=== PATIENT | female | born 1960 | race Caucasian/White ===

== ENCOUNTER 2020-05-22 10:26 | Emergency (ER) | payer BC, OTHER, SELFPAY ==
--- NOTE | ~2020-05-22 | XR_ITS ---
EXAMINATION: XR hip LT min 2V EXAM DATE: 05/22/2020 11:18 INDICATION: No known recent injury provided at this time. Pain of the left hip. TECHNIQUE: Left hip frontal, crosstable lateral and 'frog-leg' projections for interpretation. Compar wilder is made to prior examination from 01/03/2011. FINDINGS: Smooth left hip femoral head contour, no radiographic evidence of avascular necrosis. Ther e is mild to moderate primary osteoarthritis. There are no acute fractures or dislocations identified . There is no subcutaneous gas. The soft tissue is unremarkable. There are no radiopaque foreign bodies. IMPRESSION: Mild to moderate left hip osteoarthritis. Reviewed, dictated and finalized at location B.
[2020-05-22 10:30] VITALS: BP 170/83; PULSE 80; RESP 19; TEMP 37; O2SAT 98
--- NOTE | 2020-05-22 10:59 | ED.LOWEXIN ---
HPI - Extremity Injury (Lower) General Chief Complaint: Extremity Injury, Lower <Cordelia Hernadez PA-C - Last Filed: 05/22/20 13:20> Stated Complaint: Pain in groin/L hip <Cordelia Hernadez PA-C - Last Filed: 05/22/20 13:20> Time Seen by Provider: 05/22/20 10:37 <Cordelia Hernadez PA-C - Last Filed: 05/22/20 13:20> Source: patient <Cordelia Hernadez PA-C - Last Filed: 05/22/20 13:20> Mode of arrival: ambulatory <JUAN Gonzalez Last Filed: 05/22/20 13:20> Limitations: no limitations <Cordelia Hernadez PA-C - Last Filed: 05/22/20 13:20> History of Present Illness HPI Narrative: This is a 59 year old female that presents to the ER for left hip pain since yesterday. No known injury or trauma. Reports the pain worsened this morning and was making it difficult for her to ambulate which prompted her to be seen. Reports pain seems to be anterior and in the groin. Worse with movement and relieved with rest. She took 500 mg of Tylenol this morning. Denies fever, rash, abdominal pain, vomiting, dysuria, back pain, weakness or numbness. <Cordelia Hernadez PA-C - Last Filed: 05/22/20 13:20> Related Data Home Medications: Home Medications Medication Instructions Recorded Confirmed Zithromax Z-Murali 250 mg PO DAILY 10/04/19 10/04/19 adalimumab 40 mg SUBCUT [id number] 10/04/19 10/04/19 ascorbic acid (vitamin C) [Vitamin 1 g PO DAILY 10/04/19 10/04/19 C] aspirin [Enteric Coated Aspirin] 81 mg PO DAILY 10/04/19 10/04/19 atorvastatin 20 mg PO DAILY 10/04/19 10/04/19 biotin 5,000 mcg PO DAILY 10/04/19 10/04/19 escitalopram oxalate 10 mg PO DAILY 10/04/19 10/04/19 ferrous sulfate 325 mg PO DAILY 10/04/19 10/04/19 folic acid 1 mg PO DAILY 10/04/19 10/04/19 fosinopril 40 mg PO DAILY 10/04/19 10/04/19 furosemide 20 mg PO DAILY 10/04/19 10/04/19 guaifenesin [Mucinex] 600 mg PO BID 10/04/19 10/04/19 losartan 100 mg PO DAILY 10/04/19 10/04/19 metformin 500 mg PO BID 10/04/19 10/04/19 methotrexate sodium 15 mg PO WEEKLY 10/04/19 10/04/19 multivitamin 1 tablet PO DAILY 10/04/19 10/04/19 nebivolol [Bystolic] 10 mg PO TID 10/04/19 10/04/19 omega-3 fatty acids 500 mg PO DAILY 10/04/19 10/04/19 omeprazole 40 mg PO DAILY 10/04/19 10/04/19 <Cordelia Hernadez PA-C - Last Filed: 05/22/20 13:20> Allergies/Adverse Reactions: Allergies Allergy/AdvReac Type Severity Reaction Status Date / Time adhesive Allergy Intermediate SKIN Verified 05/22/20 10:33 BREAKS OUT <Cordelia Hernadez PA-C - Last Filed: 05/22/20 13:20> Review of Systems Review of Systems: Narrative: CONSTITUTIONAL: Denies fever GASTROINTESTINAL: Denies abdominal pain, nausea, vomiting GENITOURINARY: Denies dysuria or hematuria. SKIN: Denies rash MUSCULOSKELETAL: Reports joint pain and myalgia. Denies back pain NEUROLOGIC: Denies numbness, or weakness. <Cordelia Hernadez PA-C - Last Filed: 05/22/20 13:20> All systems reviewed & are unremarkable except as noted in HPI and below <Cordelia Hernadez PA-C - Last Filed: 05/22/20 13:20> [facility] Social History Social History: Social History Smoking status: Former smoker Alcohol intake: never Gender identity (if verbalized by the patient): Female <Cordelia Hernadez PA-C - Last Filed: 05/22/20 13:20> Exam Narrative: Exam Narrative: GENERAL: Well-appearing, obese, and in no acute distress. HEAD: Normocephalic, atraumatic. EYES: EOMI. CHEST: Clear to auscultation. No respiratory distress. No wheezes rales or rhonchi HEART: Regular rate and rhythm. No murmur heard. Normal peripheral pulses. ABDOMEN: Soft, nontender, nondistended, normal active bowel sounds. BACK: No midline spinal tenderness EXTREMITIES: Normal range of motion. No edema. Strength equal in bilateral lower extremities (5/5). Normal DP pulses SKIN: Warm, dry, no rash. NEURO: No focal deficits. Alert and oriented x3. PSYCH: Normal mood and affect <Cordelia Hernadez,
[2020-05-22] MEDS: ACETAMINOPHEN 500 MG TABLET (11:21)
[2020-05-22 12:17] LABS: Basophils Percent Auto 0.2 % (0.2-1.2); Eosinophils Absolute Auto 0.2 K/mm3 (0-0.3); Eosinophils Percent Auto 2.2 % (0-4.4); Hematocrit 38.1 % (37.0-47.0); Hemoglobin 12.6 g/dL (12.0-15.0); Immature Granulocyte Absolute 0.06 K/mm3 (0.00-0.031); Immature Granulocyte Percent A 0.7 % (0-0.5); Lymphocytes Absolute Auto 1.93 K/mm3 (0.9-3.2); Mean Corpuscular HGB Conc 33.1 g/dl (32-36); Mean Corpuscular Hemoglobin 31.9 pg (26-34); Mean Corpuscular Volume 96.5 fl (80-100); Mean Platelet Volume 9.4 fl (7.4-10.4); Monocytes Absolute Auto 0.7 K/mm3 (0.1-0.6); Monocytes Percent Auto 7.5 % (2.6-8.5); Neutrophils Absolute Auto 5.9 K/mm3 (1.3-6.7); Neutrophils Percent Auto 67.4 % (45.5-73.1); Platelet Count Result 171 k/mm3 (150-375); Red Blood Count 3.95 M/mm3 (4.2-5.4); Red Cell Distribution Width 13.2 % (11.5-14.5); White Blood Count 8.8 K/mm3 (4.5-10.0)
[2020-05-22 12:20] LABS: Blood Urea Nitrogen 18 mg/dL (7-17); CRP < 0.5 mg/dL (<1.0); Calcium 8.8 mg/dL (8.4-10.2); Carbon Dioxide 29 mmol/L (22-30); Chloride 99 mmol/L (98-107); Estimated CRCL calculation 96 ml/min; Estimated Glomerular Filt Rate > 60; Glucose 122 mg/dL (65-105); Potassium 3.8 mmol/L (3.4-5.0); Sodium 135 mmol/L (137-145)
[2020-05-22 12:48] VITALS: BP 149/56; PULSE 86; RESP 18; O2SAT 99
--- NOTE | 2020-05-22 13:05 | PC.NURSE ---
Cordelia BASURTO informed of ambulation assessment
== END 2020-05-22 13:25 | disposition home or self-care (01) ==
PROVIDERS: Physician Assistant; Emergency Provider Emergency Medicine
DX: M25.552 Pain in left hip (principal); Z87.891 Personal history of nicotine dependence; Z79.84 Long term (current) use of oral hypoglycemic drugs; Z86.73 Personal history of transient ischemic attack (TIA), and cerebral infarction without residual deficits; E11.9 Type 2 diabetes mellitus without complications; K21.9 Gastro-esophageal reflux disease without esophagitis; E78.5 Hyperlipidemia, unspecified; I10 Essential (primary) hypertension; M06.9 Rheumatoid arthritis, unspecified; G47.30 Sleep apnea, unspecified; Z96.651 Presence of right artificial knee joint; Z98.84 Bariatric surgery status; F32.9 Major depressive disorder, single episode, unspecified
CPT/HCPCS: 36415; 73502; 80048; 85025; 86140; 96372; 99283; A9270; J3360

== ENCOUNTER 2020-08-22 02:17 | Emergency (ER) | payer BC, OTHER, SELFPAY ==
[2020-08-22 02:19] VITALS: BP 179/55; PULSE 76; RESP 16; TEMP 37; O2SAT 98
--- NOTE | 2020-08-22 02:59 | ED.GENADULT ---
HPI - General Adult General Chief complaint: Dental/Oral Stated complaint: tooth ache Time Seen by Provider: 08/22/20 02:59 Source: patient Mode of arrival: ambulatory Limitations: no limitations History of Present Illness HPI narrative: Patient is a 59-year-old female who presents for evaluation of right lower toothache. Patient states symptoms have been worsening over the past 48 hours, patient has associated jaw pain and radiation of the pain into her ear. She denies difficulty swallowing. She denies fever or chills. She denies associated chest pain, shortness of breath, rhinorrhea or congestion. Patient has follow-up with a dentist on September 01 but has been unable to secure an earlier appointment. She is able only to take a limited amount of ibuprofen due to chronic kidney disease and states that the pain is severe and preventing her from sleeping which is what prompted her visit this evening. Related Data Home Medications Medication Instructions Recorded Confirmed Zithromax Z-Murali 250 mg PO DAILY 10/04/19 10/04/19 adalimumab 40 mg SUBCUT [id number] 10/04/19 10/04/19 ascorbic acid (vitamin C) [Vitamin 1 g PO DAILY 10/04/19 10/04/19 C] aspirin [Enteric Coated Aspirin] 81 mg PO DAILY 10/04/19 10/04/19 atorvastatin 20 mg PO DAILY 10/04/19 10/04/19 biotin 5,000 mcg PO DAILY 10/04/19 10/04/19 escitalopram oxalate 10 mg PO DAILY 10/04/19 10/04/19 ferrous sulfate 325 mg PO DAILY 10/04/19 10/04/19 folic acid 1 mg PO DAILY 10/04/19 10/04/19 fosinopril 40 mg PO DAILY 10/04/19 10/04/19 furosemide 20 mg PO DAILY 10/04/19 10/04/19 guaifenesin [Mucinex] 600 mg PO BID 10/04/19 10/04/19 losartan 100 mg PO DAILY 10/04/19 10/04/19 metformin 500 mg PO BID 10/04/19 10/04/19 methotrexate sodium 15 mg PO WEEKLY 10/04/19 10/04/19 multivitamin 1 tablet PO DAILY 10/04/19 10/04/19 nebivolol [Bystolic] 10 mg PO TID 10/04/19 10/04/19 omega-3 fatty acids 500 mg PO DAILY 10/04/19 10/04/19 omeprazole 40 mg PO DAILY 10/04/19 10/04/19 Allergies Allergy/AdvReac Type Severity Reaction Status Date / Time adhesive Allergy Intermediate SKIN Verified 05/22/20 10:33 BREAKS OUT Review of Systems Review of Systems: Narrative: CONSTITUTIONAL: Denies fever HEENT: Reports right lower tooth ache CARDIOVASCULAR: Denies chest pain RESPIRATORY: Denies cough or dyspnea. GASTROINTESTINAL: Denies abdominal pain SKIN: Denies rash MUSCULOSKELETAL: Denies back pain NEUROLOGIC: Denies headache PMFSH Past Medical History Medical History CVA (cerebral vascular accident) Depression Diabetes mellitus Foot fracture, right GERD (gastroesophageal reflux disease) HLD (hyperlipidemia) HTN (hypertension) Rheumatoid arthritis Sciatica Shoulder fracture, left Sleep apnea with use of continuous positive airway pressure (CPAP) TIA (transient ischemic attack) Surgical History Surgical History H/O cardiac catheterization H/O oophorectomy Lt History of carpal tunnel surgery History of ear surgery Rt x2 History of gastric bypass History of knee replacement Rt Social History Social History Smoking status: Former smoker Alcohol intake: never Gender identity (if verbalized by the patient): Female Exam Narrative: Exam Narrative: GENERAL: Awake, alert, conversant HEAD: Normocephalic, atraumatic. No facial edema or erythema. EYES: PERRLA and EOMI. ENT: Nares clear, no rhinorrhea or epistaxis. Mucous membranes moist. Uvula is midline. No trismus. Dental caries throughout mouth. Gingival erythema, edema about tooth 27 and 28. No abscess identified. No elevation of the palate. NECK: Supple. CHEST: No respiratory distress, breathing even and non labored HEART: Regular rate, sinus rhythm ABDOMEN:Non distended, non tender EXTREMITIES: Normal range of motion. No edema. SKIN: Warm, dry, no rash.
[2020-08-22] MEDS: CLINDAMYCIN HCL 150 MG CAP 300 MG PO (03:28)
[2020-08-22] MEDS: oxyCODONE/ACETAMINOPHEN (*CRX) 5-325 MG TABLET 1 TABLET PO (03:29)
[2020-08-22 03:33] VITALS: PULSE 89; RESP 18; O2SAT 99
== END 2020-08-22 03:36 | disposition home or self-care (01) ==
PROVIDERS: Emergency Provider Emergency Medicine
DX: K02.9 Dental caries, unspecified (principal); Z79.82 Long term (current) use of aspirin; Z79.84 Long term (current) use of oral hypoglycemic drugs; Z86.73 Personal history of transient ischemic attack (TIA), and cerebral infarction without residual deficits; F32.9 Major depressive disorder, single episode, unspecified; E11.9 Type 2 diabetes mellitus without complications; K21.9 Gastro-esophageal reflux disease without esophagitis; E78.5 Hyperlipidemia, unspecified; I10 Essential (primary) hypertension; M06.9 Rheumatoid arthritis, unspecified; G47.30 Sleep apnea, unspecified; Z96.651 Presence of right artificial knee joint; Z98.84 Bariatric surgery status; Z87.891 Personal history of nicotine dependence
CPT/HCPCS: 99283; A9270

== ENCOUNTER 2021-07-12 09:48 | Outpatient (CLI) | payer BC, OTHER, SELFPAY | END 2021-07-12 09:49 | disposition home or self-care (01) | LOC: ANHAUDIO 09:49 | PROVIDERS: Visit Provider Otolaryngology | DX: H93.11 Tinnitus, right ear (principal); H90.71 Mixed conductive and sensorineural hearing loss, unilateral, right ear, with unrestricted hearing on the contralateral side | CPT/HCPCS: 92557; 92567 ==

== ENCOUNTER 2022-08-10 17:38 | Emergency (ER) | payer BC, OTHER, SELFPAY ==
--- NOTE | ~2022-08-10 | XR_ITS ---
EXAM: XR toe 1st RT min 2V DATE: 08/10/2022 18:09 HISTORY: injury, hypertended 1st digit on rt foot, bruising . COMPARISON: None available. FINDINGS: Decreased mineralization. Oblique minimally distracted intra-articular fracture along the proximal and dorsal surface of the distal right first phalanx. No lytic or blastic lesion. Scattered degenerative change. No erosion or periosteal change. Soft tissues within normal limits. IMPRESSION: Oblique, minimally distracted, intra-articular fracture along the proximal dorsal aspect of the distal right first phalanx. Reviewed, dictated and finalized at location K. IMPRESSION: Oblique, minimally distracted, intra-articular fracture along the p roximal dorsal aspect of the distal right first phalanx.
[2022-08-10 17:50] VITALS: BP 142/56; PULSE 63; RESP 18; TEMP 36.4; O2SAT 100
--- NOTE | 2022-08-10 18:39 | ED.LOWEXIN ---
HPI - Extremity Injury (Lower) General Chief Complaint: Extremity Injury, Lower Stated Complaint: right foot 1 digit toe Time Seen by Provider: 08/10/22 18:41 Source: patient Mode of arrival: ambulatory Limitations: no limitations History of Present Illness HPI Narrative: 61 year old female who presents to [facility] care with complaints of injury to her right great toe. She reports that she stepped over a bunch of blankets that kids had on floor and got foot wrapped up the blankets and it bent her toe under about two weeks ago. Patient reports that swelling and redness has increased to the distal right first phalanx. Patient is diabetic and also has history of Rheumatoid arthritis. MD complaint: other (great toe injury) Onset (ago): week(s) (1) Related Data Home Medications Medication Instructions Recorded Confirmed ascorbic acid (vitamin C) 1,000 mg 1 g PO DAILY 10/04/19 05/25/21 tablet (Vitamin C) aspirin 81 mg tablet,delayed 81 mg PO DAILY 10/04/19 05/25/21 release (Enteric Coated Aspirin) atorvastatin 20 mg tablet 20 mg PO DAILY 10/04/19 05/25/21 biotin 5,000 mcg disintegrating 5,000 mcg PO DAILY 10/04/19 05/25/21 tablet escitalopram oxalate 10 mg tablet 10 mg PO DAILY 10/04/19 05/25/21 folic acid 1 mg tablet 1 mg PO DAILY 10/04/19 05/25/21 furosemide 20 mg tablet 20 mg PO DAILY 10/04/19 05/25/21 losartan 100 mg tablet 100 mg PO DAILY 10/04/19 05/25/21 metformin 500 mg tablet 500 mg PO BID 10/04/19 05/25/21 methotrexate sodium 15 mg tablet 15 mg PO WEEKLY 10/04/19 10/04/19 multivitamin 1 tablet PO DAILY 10/04/19 05/25/21 nebivolol 10 mg tablet (Bystolic) 10 mg PO TID 10/04/19 05/25/21 omeprazole 40 mg capsule,delayed 40 mg PO DAILY 10/04/19 05/25/21 release adalimumab 40 mg/0.8 mL 40 mg subcut ONCE 05/25/21 05/25/21 subcutaneous syringe kit (Humira) exenatide microspheres 2 mg/0.65 mg subcut 05/25/21 05/25/21 mL subcutaneous pen injector Allergies Allergy/AdvReac Type Severity Reaction Status Date / Time adhesive Allergy Intermediate SKIN Verified 08/10/22 17:53 BREAKS OUT [facility] Past Medical History Medical History CVA (cerebral vascular accident) Depression Diabetes mellitus Foot fracture, right GERD (gastroesophageal reflux disease) HLD (hyperlipidemia) HTN (hypertension) Rheumatoid arthritis Sciatica Shoulder fracture, left Sleep apnea with use of continuous positive airway pressure (CPAP) TIA (transient ischemic attack) Surgical History Surgical History H/O cardiac catheterization H/O oophorectomy Lt History of carpal tunnel surgery History of ear surgery Rt x2 History of gastric bypass History of knee replacement Rt Family History Family History Mother Family history of osteoporosis Father Family history of diabetes mellitus in first degree relative Family history of coronary artery disease Grandparent Diabetes mellitus Social History Social History Smoking status: Former smoker Alcohol intake: never Substance use: never Substance use type: does not use Gender identity (if verbalized by the patient): Female Comments At time of signature, agree with nursing past medical, surgical, social and family history. There is no relevant family history pertinent to the presenting complaint Exam Narrative: GENERAL: Well-appearing, well-nourished, obesity and in no acute distress. HEAD: Normocephalic, atraumatic. EYES: PERRLA and EOMI. ENT: Nares clear, no rhinorrhea or epistaxis. Mucous membranes moist. TMs normal good light reflex throat pink with no lesions or exudates or tonsillar swelling NECK: Supple. No lymphadenopathy CHEST: Clear to auscultation. No respiratory distress. SaO2 100% on room air, no tachypnea HEART: Regular rate and rhythm
== END 2022-08-10 19:11 | disposition home or self-care (01) ==
PROVIDERS: Emergency Provider Registered Nurse
DX: S92.421A Displaced fracture of distal phalanx of right great toe, initial encounter for closed fracture (principal); X50.9XXA Other and unspecified overexertion or strenuous movements or postures, initial encounter; E11.9 Type 2 diabetes mellitus without complications; K21.9 Gastro-esophageal reflux disease without esophagitis; E78.5 Hyperlipidemia, unspecified; I10 Essential (primary) hypertension; M06.9 Rheumatoid arthritis, unspecified; G47.30 Sleep apnea, unspecified; Z86.73 Personal history of transient ischemic attack (TIA), and cerebral infarction without residual deficits; Z96.651 Presence of right artificial knee joint; Z87.891 Personal history of nicotine dependence
CPT/HCPCS: 73660; 99213; G0463

== ENCOUNTER 2024-02-26 00:02 | Day surgery (SDC) | payer MEDICARE, OTHER, SELFPAY ==
[2024-02-21 12:13] VITALS: BMI 47.2
--- NOTE | 2024-02-23 10:17 | SUR.PREOP ---
Patient called regarding upcoming procedure. Reviewed preop instructions, appointment times, and procedure prep.
[2024-02-26 13:40] VITALS: BP 130/66; PULSE 55; RESP 20; TEMP 36; O2SAT 100
[2024-02-26 13:45] LABS: Glucose Point of Care 139 mg/dl (65-105)
[2024-02-26] MEDS: LACTATED RINGERS 1,000 ML 150 ML IV CONT (13:49)
--- NOTE | 2024-02-26 14:33 | WPDANESEPPF ---
Anes - Initial Pre Proc Eval Procedure: Operation Date: 02/26/24 14:30 Proposed Procedures p Esophagogastroduodenoscopy - Aleksandr Raza MD Date/Time: 02/26/24 14:33 Surgeon: Aleksandr Raza MD Pre Op Diagnosis: Dyskinesia, GERD, other specified disease of esoph Patient Data Age: 63 Gender: F Height: 1.7 m Weight: 134.6 kg Last Vital Signs Temp 36.0 C L 02/26/24 13:40 Pulse 55 L 02/26/24 13:40 Resp 20 02/26/24 13:40 BP 130/66 02/26/24 13:40 Pulse Ox 100 02/26/24 13:40 O2 Del Method Room Air 02/26/24 13:40 Allergies Allergy/AdvReac Type Severity Reaction Status Date / Time adhesive Allergy Intermediate SKIN Verified 02/26/24 13:36 BREAKS OUT Home Medications Medication Instructions Recorded Confirmed Type aspirin 81 mg tablet,delayed 81 mg PO DAILY 10/04/19 02/21/24 History release (Enteric Coated Aspirin) atorvastatin 20 mg tablet 20 mg PO DAILY 10/04/19 02/21/24 History escitalopram oxalate 10 mg tablet 10 mg PO DAILY 10/04/19 02/21/24 History folic acid 1 mg tablet 1 mg PO DAILY 10/04/19 02/21/24 History furosemide 20 mg tablet 20 mg PO DAILY 10/04/19 02/21/24 History losartan 100 mg tablet 100 mg PO DAILY 10/04/19 02/26/24 History multivitamin 1 tablet PO DAILY 10/04/19 02/26/24 History adalimumab 40 mg/0.8 mL 40 mg subcut ONCE 05/25/21 02/21/24 History subcutaneous syringe kit (Humira) ascorbic acid (vitamin C) 1,000 mg 500 mg PO DAILY 11/22/23 02/21/24 History tablet (Vitamin C) chlorthalidone 25 mg tablet 25 mg PO DAILY 11/22/23 02/21/24 History cholecalciferol (vitamin D3) 125 125 mcg PO DAILY 11/22/23 02/21/24 History mcg (5,000 unit) capsule dulaglutide 1.5 mg/0.5 mL 1.5 mg (0.5 mL) subcut WEEKLY #2 mL 11/22/23 02/21/24 Rx subcutaneous pen injector (Trulicity) empagliflozin 10 mg tablet 10 mg PO DAILY 11/22/23 02/21/24 History (Jardiance) omega 9-biw-kek-fish oil 300 1 cap PO DAILY 11/22/23 02/21/24 History mg-1,000 mg capsule (Fish Oil) omeprazole 40 mg capsule,delayed 20 mg PO DAILY 11/22/23 02/21/24 History release potassium chloride 10 mEq 10 meq PO DAILY 11/22/23 02/21/24 History capsule,extended release mecobalamin (vitamin B12) 500 mcg 500 mcg PO DAILY 01/25/24 02/21/24 History chewable tablet omeprazole 40 mg capsule,delayed 40 mg PO DAILY #30 caps 02/20/24 02/21/24 Rx release methotrexate sodium 2.5 mg tablet 2.5 mg PO WEEKLY 02/26/24 02/26/24 History Laboratory Tests 02/26/24 13:41 POC Capillary Glucose 139 H mg/dl (65-105) Patient hx anesthesia problems: none Family hx anesthesia problems: none Results Review: All pre-operative results and documents have been reviewed as part of the pre-operative evaluation. [facility] Past Medical History Medical History Anxiety CVA (cerebral vascular accident) Diabetes mellitus GERD (gastroesophageal reflux disease) HLD (hyperlipidemia) HTN (hypertension) Rheumatoid arthritis Sleep apnea with use of continuous positive airway pressure (CPAP) TIA (transient ischemic attack) Surgical History Surgical History H/O cardiac catheterization H/O oophorectomy Lt History of carpal tunnel surgery History of cholecystectomy History of ear surgery Rt x2 History of gastric bypass History of knee replacement Rt Family History Family History Mother Family history of osteoporosis Hypertension Father Family history of diabetes mellitus in first degree relative Family history of coronary artery disease Heart disease Grandparent Diabetes mellitus Sibling B-cell lymphoma Diabetes mellitus Hypertension Cerebrovascular accident Social History Social History Smoking status: Former smoker Tobacco type: c
--- NOTE | 2024-02-26 15:01 | PM.HPGS ---
History of Present Illness History of Present Illness Consent: Risks, benefits, and alternatives have been discussed and questions answered. Patient agrees to proceed with procedure. Chief complaint: Dyskinesia, GERD, other specified disease of esoph Narrative: Barby Barajas is a 63 year old female with gerd on omeprazole, lately with sore throat, she has already seen ENT Review of Systems Review of Systems: All systems reviewed & are unremarkable except as noted in HPI and below PMFSH Past Medical History Medical History (Updated 02/26/24 @ 15:02 by Aleksandr Raza MD) Anxiety CVA (cerebral vascular accident) Diabetes mellitus GERD (gastroesophageal reflux disease) HLD (hyperlipidemia) HTN (hypertension) Rheumatoid arthritis Sleep apnea with use of continuous positive airway pressure (CPAP) Sore throat TIA (transient ischemic attack) Surgical History Surgical History H/O cardiac catheterization H/O oophorectomy Lt History of carpal tunnel surgery History of cholecystectomy History of ear surgery Rt x2 History of gastric bypass History of knee replacement Rt Family History Family History Mother Family history of osteoporosis Hypertension Father Family history of diabetes mellitus in first degree relative Family history of coronary artery disease Heart disease Grandparent Diabetes mellitus Sibling B-cell lymphoma Diabetes mellitus Hypertension Cerebrovascular accident Social History Social History Smoking status: Former smoker Tobacco type: cigarettes Alcohol intake: never Substance use: never Substance use type: does not use Do You Feel Safe in your Home?: Yes Lack of Transportation: No Lack of Food: Never True Current Housing: I Have Housing Concerned About Future Housing: No Difficulty Paying Gas/Electric Bills: No Difficulty Paying for Meds: No Currently Unemployed: No Education: High School Diploma/GED Difficulty w/ Childcare or Family Care: Decline to Answer Living arrangements: alone Gender identity (if verbalized by the patient): Female Spiritual care concerns: No Agree to blood products: Yes Meds Home Medications and Allergies Home Medications Medication Instructions Recorded Confirmed Type aspirin 81 mg tablet,delayed 81 mg PO DAILY 10/04/19 02/21/24 History release (Enteric Coated Aspirin) atorvastatin 20 mg tablet 20 mg PO DAILY 10/04/19 02/21/24 History escitalopram oxalate 10 mg tablet 10 mg PO DAILY 10/04/19 02/21/24 History folic acid 1 mg tablet 1 mg PO DAILY 10/04/19 02/21/24 History furosemide 20 mg tablet 20 mg PO DAILY 10/04/19 02/21/24 History losartan 100 mg tablet 100 mg PO DAILY 10/04/19 02/26/24 History multivitamin 1 tablet PO DAILY 10/04/19 02/26/24 History adalimumab 40 mg/0.8 mL 40 mg subcut ONCE 05/25/21 02/21/24 History subcutaneous syringe kit (Humira) ascorbic acid (vitamin C) 1,000 mg 500 mg PO DAILY 11/22/23 02/21/24 History tablet (Vitamin C) chlorthalidone 25 mg tablet 25 mg PO DAILY 11/22/23 02/21/24 History cholecalciferol (vitamin D3) 125 125 mcg PO DAILY 11/22/23 02/21/24 History mcg (5,000 unit) capsule dulaglutide 1.5 mg/0.5 mL 1.5 mg (0.5 mL) subcut WEEKLY #2 mL 11/22/23 02/21/24 Rx subcutaneous pen injector (Trulicity) empagliflozin 10 mg tablet 10 mg PO DAILY 11/22/23 02/21/24 History (Jardiance) omega 2-qpb-dya-fish oil 300 1 cap PO DAILY 11/22/23 02/21/24 History mg-1,000 mg capsule (Fish Oil) omeprazole 40 mg capsule,delayed 20 mg PO DAILY 11/22/23 02/21/24 History release potassium chloride 10 mEq 10 meq PO DAILY 11/22/23 02/21/24 History capsule,extended release mecobalamin (vitamin B12) 500 mcg 500 mcg PO DAILY 01/25/24 02/21/24 History chewable tablet omeprazole 40 mg c
[2024-02-26 15:16] VITALS: BP 105/51; PULSE 53; RESP 17; O2SAT 97
[2024-02-26 15:26] VITALS: BP 118/60; PULSE 52; RESP 15; O2SAT 98
[2024-02-26 15:36] VITALS: BP 133/60; PULSE 51; RESP 16; O2SAT 98
== END 2024-02-26 15:46 | disposition home or self-care (01) ==
PROVIDERS: PCP Family Medicine; Referring Provider Otolaryngology; Visit Provider Internal Medicine Gastroenterology
PROC: 0DJ08ZZ Inspection of Upper Intestinal Tract, Via Natural or Artificial Opening Endoscopic (ICD-10-PCS; CPT 43235; principal; 2024-02-26 14:30)
DX: K21.9 Gastro-esophageal reflux disease without esophagitis (principal); K44.9 Diaphragmatic hernia without obstruction or gangrene; I10 Essential (primary) hypertension; E78.5 Hyperlipidemia, unspecified; E11.9 Type 2 diabetes mellitus without complications; F41.9 Anxiety disorder, unspecified; G47.30 Sleep apnea, unspecified; E66.01 Morbid (severe) obesity due to excess calories; Z68.42 Body mass index [BMI] 45.0-49.9, adult; Z79.82 Long term (current) use of aspirin; Z79.85 Long-term (current) use of injectable non-insulin antidiabetic drugs; Z79.84 Long term (current) use of oral hypoglycemic drugs; Z99.89 Dependence on other enabling machines and devices; Z98.890 Other specified postprocedural states; Z98.84 Bariatric surgery status; Z90.49 Acquired absence of other specified parts of digestive tract; Z98.61 Coronary angioplasty status; Z87.891 Personal history of nicotine dependence; Z86.79 Personal history of other diseases of the circulatory system; Z86.73 Personal history of transient ischemic attack (TIA), and cerebral infarction without residual deficits; Z82.49 Family history of ischemic heart disease and other diseases of the circulatory system
CPT/HCPCS: 43239; 82948; 88305; J2704; J7120

== ENCOUNTER 2024-03-04 14:10 | Outpatient (CLI) | payer MEDICARE, OTHER, SELFPAY ==
--- NOTE | ~2024-03-04 | US_ITS ---
Procedure: Duplex Doppler examination of the bilateral carotids. Indication: Family history of stroke Technique: Real time, color-flow and pulse wave Doppler examination of the bilateral carotids was performed. Findings: Ware scale ultrasonography of the right neck demonstrated small calcified plaques at the right caroti d bulb. There was demonstration of normal color-flow and Doppler waveforms within the right common, i nternal and external carotid arteries. The peak systolic velocities in the right common, internal and external carotid arteries were demonstrated to be 74 cm/sec, 73 cm/sec and 104 cm/sec respectively. The right ICA/CCA ratio was 1.0.The proximal right internal carotid artery demonstrates 0% stenosis r elative to the normal distal artery lumen diameter. Ware scale sonography of the left neck demonstrated no significant plaque. There was demonstration of normal color-flow and wave forms within the left common, internal and external carotid arteries. The peak systolic velocities in the left common, internal and external carotid arteries were demonstrate d to be 103cm/sec, 69 cm/sec and 106 cm/sec respectively. The left ICA/CCA ratio was 0.7. The proxima l left internal carotid artery demonstrates 0% stenosis relative to the normal distal artery lumen di ameter. There was antegrade flow demonstrated in the bilateral vertebral arteries. Impression: No hemodynamically significant stenosis of the bilateral internal carotid arteries. Antegrade flow in the bilateral vertebral arteries. Note: The methodology used is an indirect measurement validated against a direct method (such as the NASCET criteria) that compares diameters at the stenosis to the distal ICA. Reviewed, dictated and finalized at location . Impression: No hemodynamically significant stenosis of the bilateral internal carotid arter ies. Antegrade flow in the bilateral vertebral arteries. Note: The methodology used is an indirect measurement validated against a direct meth od (such as the NASCET criteria) that compares diameters at the stenosis to the distal ICA.
== END 2024-03-04 14:11 | disposition home or self-care (01) ==
PROVIDERS: PCP Family Medicine; Visit Provider Physician Assistant
DX: I63.9 Cerebral infarction, unspecified (principal); Z82.3 Family history of stroke
CPT/HCPCS: 93880

== ENCOUNTER 2024-03-27 09:41 | Outpatient (CLI) | payer MEDICARE, OTHER, SELFPAY ==
--- NOTE | ~2024-03-27 | CT_ITS ---
EXAMINATION: CT abdomen pelvis w con DATE: 03/27/2024 10:22 INDICATION: Localized swelling, mass and lump, trunk. TECHNIQUE: Computed tomography (CT) of the abdomen and pelvis was performed with 100 mL Omnipaque 350 intravenous contrast. Automated exposure control and iterative reconstruction technique were employe d. The dose-length product was 1570.74 mGy-cm. COMPARISON: None. FINDINGS: The visualized portions of the lung bases are clear without pneumonia or pleural effusion. The heart size is normal. No pericardial effusion. There are cysts in the liver measuring up to 5 mm. There are changes of cholecystectomy. There are surgical changes of the stomach. There is a 9 mm cys t in the spleen. The pancreas and adrenal glands are normal. There is cortical thinning of the kidney s. There are 11 mm and 2 mm stones in left kidney. The appendix is normal. There are no pathologicall y enlarged lymph nodes. There is no free intraperitoneal fluid. There is severe lumbar spondylosis. T here are bridging endplate osteophytes at multiple levels in the spine, consistent with diffuse idiop athic skeletal hyperostosis (DISH). IMPRESSION: 1. Nonobstructing left kidney stones. Reviewed, dictated and finalized at location A.
[2024-03-27 10:13] LABS: Estimated Glomerular Filt Rate 35
== END 2024-03-27 09:42 | disposition home or self-care (01) ==
LOC: ANHIMG 09:42
PROVIDERS: PCP Family Medicine; Visit Provider Physician Assistant Medical
DX: N20.0 Calculus of kidney (principal); R22.2 Localized swelling, mass and lump, trunk
CPT/HCPCS: 74177; Q9967

== ENCOUNTER 2024-04-17 09:26 | Emergency (ER) | payer MEDICARE, OTHER, SELFPAY ==
[2024-04-17] VITALS (32 sets, daily range): BP systolic 84–136; BP diastolic 31–62; PULSE 59–84; RESP 10–23; TEMP 36.4; O2SAT 82–100
--- NOTE | ~2024-04-17 | XR_ITS ---
EXAMINATION: XR chest 2V DATE: 04/17/2024 12:09 INDICATION: Shortness of breath. Fatigue. TECHNIQUE: Frontal and lateral views of the chest were obtained. COMPARISON: Chest 2 views 12/08/2015 FINDINGS: A calcified right lung nodule and calcified right hilar lymph nodes are consistent with old granulomatous disease. No pleural effusion or pneumothorax. The heart size is normal. There is mild chronic anterior wedging of multiple vertebral bodies. IMPRESSION: 1. No acute cardiopulmonary disease. Reviewed, dictated and finalized at location A.
--- NOTE | 2024-04-17 10:09 | ECG_ITS ---
SEE SCANNED COPY FOR CONFIRMED REPORT MTDD
[2024-04-17 10:37] LABS: Basophils Percent Auto 0.2 % (0.2-1.2); Eosinophils Absolute Auto 0.1 K/mm3 (0-0.3); Eosinophils Percent Auto 1.4 % (0-4.4); Hematocrit 37.2 % (37.0-47.0); Immature Granulocyte Absolute 0.01 K/mm3 (0.00-0.031); Immature Granulocyte Percent A 0.2 % (0-0.5); Lymphocytes Absolute Auto 1.97 K/mm3 (0.9-3.2); Lymphocytes Percent Auto 40.2 % (18.3-44.2); Mean Corpuscular HGB Conc 32.3 g/dl (32-36); Mean Corpuscular Hemoglobin 31.4 pg (26-34); Mean Corpuscular Volume 97.4 fl (80-100); Mean Platelet Volume 9.4 fl (7.4-10.4); Monocytes Absolute Auto 0.7 K/mm3 (0.1-0.6); Monocytes Percent Auto 14.7 % (2.6-8.5); Neutrophils Absolute Auto 2.1 K/mm3 (1.3-6.7); Neutrophils Percent Auto 43.3 % (45.5-73.1); Platelet Count Result 134 k/mm3 (150-375); Red Blood Count 3.82 M/mm3 (4.2-5.4); Red Cell Distribution Width 14.7 % (11.5-14.5); White Blood Count 4.9 K/mm3 (4.5-10.0)
[2024-04-17 10:50] LABS: Alanine Aminotransferase 36 U/L (6-35); Alkaline Phosphatase 63 U/L (38-126); Anion Gap 11 mmol/L (4-12); Aspartate Amino Transferase 38 U/L (14-36); Blood Urea Nitrogen 37 mg/dL (7-17); Calcium 8.3 mg/dL (8.4-10.2); Carbon Dioxide 24 mmol/L (22-30); Chloride 102 mmol/L (98-107); Estimated CRCL calculation 45 ml/min; Estimated Glomerular Filt Rate 32; Glucose 149 mg/dL (65-110); Potassium 2.9 mmol/L (3.4-5.0); Sodium 137 mmol/L (137-145)
--- NOTE | 2024-04-17 11:21 | ED.GENADULT ---
HPI - General Adult General Chief complaint: Syncope Stated complaint: SOB Time Seen by Provider: 04/17/24 11:18 Source: patient Mode of arrival: ambulatory Limitations: no limitations History of Present Illness HPI narrative: Patient with PMH DM and prior TIA (years ago) presents with report of multiple issues. She was short of breath last night but this resolved. History of sleep apnea for which she is supposed to use CPAP. She had temporarily stopped using it because of a hiatal hernia and neck/throat issues for which she had an EGD performed but she did use her CPAP last night and it went ok. No cough. She was concerned because she checked her BP using a cuff at [facility] when she was feeling unwell and it was 128/31. She is on Bystolic/Nebivolol for HTN but has been out for the past 3 days. Knows she takes it TID but unknown dose. Has a BP cuff at home. Note: initial chief complaint listed as syncope but patient denies this; no near syncope either. She denies dizziness but does state she has been feeling lightheaded when standing for awhile. No obvious blood loss (denies bloody stool, vaginal bleeding, hematuria, hematemesis, hemoptysis). She is tired and fatigued. She has PMH CKD, reportedly Stage 3 per patient. No history of liver disease. PCP is Gisela Shaw / [facility]. Having some leg pain which she attributes to her sciatica. No edema. Related Data Home Medications Medication Instructions Recorded Confirmed aspirin 81 mg tablet,delayed 81 mg PO DAILY 10/04/19 04/02/24 release (Enteric Coated Aspirin) atorvastatin 20 mg tablet 20 mg PO DAILY 10/04/19 04/02/24 escitalopram oxalate 10 mg tablet 10 mg PO DAILY 10/04/19 04/02/24 folic acid 1 mg tablet 1 mg PO DAILY 10/04/19 04/02/24 furosemide 20 mg tablet 20 mg PO DAILY 10/04/19 04/02/24 losartan 100 mg tablet 100 mg PO DAILY 10/04/19 04/02/24 multivitamin 1 tablet PO DAILY 10/04/19 04/02/24 adalimumab 40 mg/0.8 mL 40 mg subcut ONCE 05/25/21 04/02/24 subcutaneous syringe kit (Humixigo) ascorbic acid (vitamin C) 1,000 mg 500 mg PO DAILY 11/22/23 04/02/24 tablet (Vitamin C) chlorthalidone 25 mg tablet 25 mg PO DAILY 11/22/23 04/02/24 cholecalciferol (vitamin D3) 125 125 mcg PO DAILY 11/22/23 04/02/24 mcg (5,000 unit) capsule empagliflozin 10 mg tablet 10 mg PO DAILY 11/22/23 04/02/24 (Jardiance) omega 4-dbp-zts-fish oil 300 1 cap PO DAILY 11/22/23 04/02/24 mg-1,000 mg capsule (Fish Oil) omeprazole 40 mg capsule,delayed 20 mg PO DAILY 11/22/23 04/02/24 release potassium chloride 10 mEq 10 meq PO DAILY 11/22/23 04/02/24 capsule,extended release mecobalamin (vitamin B12) 500 mcg 500 mcg PO DAILY 01/25/24 04/02/24 chewable tablet methotrexate sodium 2.5 mg tablet 2.5 mg PO WEEKLY 02/26/24 04/02/24 Allergies Allergy/AdvReac Type Severity Reaction Status Date / Time adhesive Allergy Intermediate SKIN Verified 04/17/24 09:26 BREAKS OUT [facility] Past Medical History Medical History Anxiety CKD (chronic kidney disease) CVA (cerebral vascular accident) Diabetes mellitus GERD (gastroesophageal reflux disease) Hiatal hernia HLD (hyperlipidemia) HTN (hypertension) Rheumatoid arthritis Sleep apnea with use of continuous positive airway pressure (CPAP) Sore throat TIA (transient ischemic attack) Surgical History Surgical History H/O cardiac catheterization H/O oophorectomy Lt History of carpal tunnel surgery History of cholecystectomy History of ear surgery Rt x2 History of esophagogastroduodenoscopy (EGD) 02/26/24 History of gastric bypass History of knee replacement Rt Family History Family History Mother Family history of osteoporosis Hypertension Father Family history of diabetes mellitus in first degree relative Family history of coronary artery disease Heart dise
[2024-04-17] MEDS: SODIUM CHLORIDE 0.9% IV 1,000 ML 999 ML IV CONT (12:20)
[2024-04-17] MEDS: KCL 20 MEQ/SW 100 ML 100 ML 50 MEQ IVPB (12:20)
[2024-04-17] MEDS: POTASSIUM BICARBONATE 25 MEQ TABEF PO (12:21)
[2024-04-17 12:43] LABS: Magnesium 1.6 mg/dL (1.6-2.3)
[2024-04-17 12:53] LABS: Creatine Kinase 64 U/L (30-135)
[2024-04-17 12:56] LABS: Troponin I < 0.012 ng/mL (0.000-0.034)
[2024-04-17 12:58] LABS: Influenza A QL RT-PCR Negative (Negative); Influenza B QL RT-PCR Negative (Negative); RSV RNA, RT-PCR Negative (Negative); SARS-CoV-2 RNA PCR Negative (Negative)
[2024-04-17 13:25] LABS: Appearance Urine Clear (Clear); Bacteria Urine 4+ /hpf; Bilirubin Urine Negative (Negative); Blood Urine Negative (Negative); Color Urine Yellow (Yellow); Glucose Urine UA 2+ mg/dL (Negative); Ketones Urine Negative (Negative); Leukocyte Esterase Ur 2+ LEU/UL (Negative); Nitrate Urine Positive (Negative); Protein Urine Negative (Negative); RBC Urine 0-2 /hpf (0-2); Squamous Epithelial Cell Urine Occasional /hpf (Few); WBC Urine 21-50 /hpf (0-3); pH Urine 5.5 (5.0-9.0)
[2024-04-17 13:29] LABS: Add Urine Microscopic? YES
[2024-04-17 14:06] LABS: Anion Gap 6 mmol/L (4-12); Blood Urea Nitrogen 38 mg/dL (7-17); Calcium 7.9 mg/dL (8.4-10.2); Carbon Dioxide 26 mmol/L (22-30); Chloride 104 mmol/L (98-107); Estimated CRCL calculation 51 ml/min; Estimated Glomerular Filt Rate 38; Glucose 115 mg/dL (65-110); Potassium 3.4 mmol/L (3.4-5.0); Sodium 136 mmol/L (137-145)
[2024-04-17] MEDS: SODIUM CHLORIDE 0.9% IV 500 ML 100 ML (14:30)
[2024-04-17] MEDS: MAGNESIUM SULF 1 GM/D5W 100 ML 1 GM/100 ML BAG IVPB (14:30)
== END 2024-04-17 16:43 | disposition home or self-care (01) ==
PROVIDERS: Emergency Provider Student in an Organized Health Care Education/Training Program; PCP Family Medicine
DX: I12.9 Hypertensive chronic kidney disease with stage 1 through stage 4 chronic kidney disease, or unspecified chronic kidney disease (principal); E11.22 Type 2 diabetes mellitus with diabetic chronic kidney disease; N18.9 Chronic kidney disease, unspecified; N39.0 Urinary tract infection, site not specified; E11.65 Type 2 diabetes mellitus with hyperglycemia; E87.6 Hypokalemia; D69.6 Thrombocytopenia, unspecified; R53.83 Other fatigue; T44.7X6A Underdosing of beta-adrenoreceptor antagonists, initial encounter; Z91.138 Patient's unintentional underdosing of medication regimen for other reason; Z20.822 Contact with and (suspected) exposure to COVID-19; K21.9 Gastro-esophageal reflux disease without esophagitis; K44.9 Diaphragmatic hernia without obstruction or gangrene; M06.9 Rheumatoid arthritis, unspecified; G47.30 Sleep apnea, unspecified; F41.9 Anxiety disorder, unspecified; Z96.651 Presence of right artificial knee joint; Z86.73 Personal history of transient ischemic attack (TIA), and cerebral infarction without residual deficits; Z87.891 Personal history of nicotine dependence; Z90.721 Acquired absence of ovaries, unilateral; Z90.49 Acquired absence of other specified parts of digestive tract; Z98.84 Bariatric surgery status; Z79.84 Long term (current) use of oral hypoglycemic drugs; Z79.85 Long-term (current) use of injectable non-insulin antidiabetic drugs; Z79.82 Long term (current) use of aspirin; Z79.899 Other long term (current) drug therapy; I45.10 Unspecified right bundle-branch block
CPT/HCPCS: 36415; 71046; 80048; 80053; 81001; 82550; 83735; 84484; 85025; 85380; 87077; 87086; 87088; 87186; 87637; 93005; 96361; 96365; 96366; 96367; 99284; A9270; J0696; J3475; J3480; J7030; J7040

== ENCOUNTER 2024-04-30 11:06 | Outpatient (CLI) | payer MEDICARE, OTHER, SELFPAY ==
[2024-04-30 12:42] LABS: Hematocrit 32.9 % (37.0-47.0); Mean Corpuscular HGB Conc 33.4 g/dl (32-36); Mean Corpuscular Hemoglobin 31.1 pg (26-34); Mean Corpuscular Volume 92.9 fl (80-100); Mean Platelet Volume 9.6 fl (7.4-10.4); Platelet Count Result 190 k/mm3 (150-375); Red Blood Count 3.54 M/mm3 (4.2-5.4); Red Cell Distribution Width 13.9 % (11.5-14.5)
[2024-04-30 13:03] LABS: Alanine Aminotransferase 53 U/L (6-35); Albumin Level 4.1 g/dL (3.5-5.1); Alkaline Phosphatase 65 U/L (38-126); Anion Gap 7 mmol/L (4-12); Aspartate Amino Transferase 40 U/L (14-36); Bilirubin,Total 0.7 mg/dL (0.2-1.3); Blood Urea Nitrogen 27 mg/dL (7-17); Calcium 8.6 mg/dL (8.4-10.2); Carbon Dioxide 27 mmol/L (22-30); Chloride 105 mmol/L (98-107); Cholesterol 96 mg/dL (0-200); Estimated Glomerular Filt Rate 41; Glucose 111 mg/dL (65-110); HDL Direct 30 mg/dL; Potassium 3.7 mmol/L (3.4-5.0); Sodium 139 mmol/L (137-145); Triglycerides 197 mg/dL (<150)
[2024-04-30 13:10] LABS: Hemoglobin A1C 6.9 % (<5.7)
[2024-04-30 13:13] LABS: LDL Cholesterol Direct 49 mg/dL
[2024-04-30 13:33] LABS: Thyroid Stimulating Hormone 0.894 uIU/mL (0.465-4.680)
[2024-04-30 13:36] LABS: Free T4 Free Thyroxine 1.04 ng/mL (0.78-2.19)
== END 2024-04-30 11:07 | disposition home or self-care (01) ==
LOC: ANHLAB 11:11
PROVIDERS: PCP Family Medicine; Visit Provider Physician Assistant
DX: Z13.1 Encounter for screening for diabetes mellitus (principal); Z13.220 Encounter for screening for lipoid disorders; E11.9 Type 2 diabetes mellitus without complications; R53.83 Other fatigue; D64.9 Anemia, unspecified
CPT/HCPCS: 36415; 80053; 80061; 83036; 84439; 84443; 85027

== ENCOUNTER 2024-05-06 11:12 | Outpatient (CLI) | payer MEDICARE, OTHER, SELFPAY ==
[2024-05-06 12:33] LABS: Hematocrit 29.2 % (37.0-47.0); Mean Corpuscular HGB Conc 34.2 g/dl (32-36); Mean Corpuscular Hemoglobin 31.7 pg (26-34); Mean Corpuscular Volume 92.7 fl (80-100); Mean Platelet Volume 10.6 fl (7.4-10.4); Platelet Count Result 124 k/mm3 (150-375); Red Blood Count 3.15 M/mm3 (4.2-5.4); Red Cell Distribution Width 14.4 % (11.5-14.5); White Blood Count 4.3 K/mm3 (4.5-10.0)
[2024-05-06 12:48] LABS: Creatine Kinase 54 U/L (30-135)
[2024-05-06 12:56] LABS: Parathyroid Intact 66.1 pg/mL (7.5-53.5)
[2024-05-06 12:56] LABS: Complement C3 89 mg/dL (88-165)
[2024-05-07 10:38] LABS: Complement Total CH50 46 U/mL (31-60)
[2024-05-07 14:24] LABS: Kappa\\Lambda Light Chains 1.27 (0.26-1.65); Lambda Light Chain 124.5 mg/L (5.7-26.3)
[2024-05-07 14:59] LABS: SS-A <1.0 NEG AI (<1.0 NEG); SS-B <1.0 NEG AI (<1.0 NEG)
[2024-05-07 14:59] LABS: SM Antibody <1.0 NEG AI (<1.0 NEG); SM/RNP Antibody <1.0 NEG AI (<1.0 NEG)
[2024-05-08 14:38] LABS: Anti Glomerular Basement Memb <1.0 AI
[2024-05-10 12:05] LABS: ANCA Screen NEGATIVE (NEGATIVE)
[2024-05-10 21:08] LABS: Immunofixation, Serum Normal pattern.
[2024-05-13 17:58] LABS: Cryoglobulin, QL Negative (Negative)
== END 2024-05-06 11:13 | disposition home or self-care (01) ==
PROVIDERS: PCP Family Medicine; Visit Provider Internal Medicine Nephrology
DX: R94.4 Abnormal results of kidney function studies (principal); R76.0 Raised antibody titer; E11.9 Type 2 diabetes mellitus without complications
CPT/HCPCS: 36415; 82550; 82595; 83520; 83883; 83970; 85027; 86036; 86038; 86039; 86160; 86162; 86235; 86334

== ENCOUNTER 2024-05-08 15:55 | Outpatient (CLI) | payer MEDICARE, OTHER, SELFPAY ==
[2024-05-08 20:41] LABS: Total Volume 24 Hour Urine 1650 ml
[2024-05-08 20:53] LABS: Urea Nitrogen 24 Hour Urine 5.6 G/DAY (12-20)
[2024-05-10 15:09] LABS: Creat 24 Hr 1.32 g/24 h (0.50-2.15); Pro/Creat Ratio 138 mg/g creat (<150); Pro/Creat Ratio mg/mg 0.138 (<0.150); Protein,total, 24 Hr Ur 182 mg/24 h (<150)
[2024-05-14 13:18] LABS: Albumin 100 %
== END 2024-05-08 15:56 | disposition home or self-care (01) ==
LOC: ANHLAB 15:59
PROVIDERS: PCP Family Medicine; Visit Provider Internal Medicine Nephrology
DX: R94.4 Abnormal results of kidney function studies (principal); R76.0 Raised antibody titer
CPT/HCPCS: 81050; 84540; 86335

== ENCOUNTER 2024-05-15 16:03 | Outpatient (CLI) | payer MEDICARE, OTHER, SELFPAY ==
--- NOTE | ~2024-05-15 | US_ITS ---
EXAMINATION: US renal BI DATE: 05/15/2024 16:19 INDICATION: Abnormal kidney function tests TECHNIQUE: Multiple ultrasound grayscale images of the kidneys were obtained. COMPARISON: CT dated 03/27/2024 FINDINGS: The right kidney measures 11.5 x 5.0 x 5.1 cm. The left kidney measures 12.8 x 5.4 x 5.3 cm. The kidn eys demonstrate normal echogenicity. 1.1 cm echogenic and shadowing stone at the lower pole of the le ft kidney which more accurately measured 1.5 cm on the prior CT. There is no hydronephrosis in either kidney. No right-sided nephrolithiasis. The bladder is normal. IMPRESSION: 1. Unchanged 1.5 cm nonobstructing stone at the lower pole of the left kidney. No hydronephrosis. Reviewed, dictated and finalized at location A.
== END 2024-05-15 16:04 ==
LOC: MICIMG 16:04
PROVIDERS: PCP Family Medicine; Visit Provider Internal Medicine Nephrology
DX: R94.4 Abnormal results of kidney function studies (principal); N20.0 Calculus of kidney
CPT/HCPCS: 76775

== ENCOUNTER 2024-05-22 12:15 | Outpatient (CLI) | payer MEDICARE, OTHER, SELFPAY ==
[2024-05-22 12:41] LABS: Basophils Percent Auto 0.5 % (0.2-1.2); Eosinophils Absolute Auto 0.2 K/mm3 (0-0.3); Eosinophils Percent Auto 2.3 % (0-4.4); Hematocrit 35.5 % (37.0-47.0); Hemoglobin 11.1 g/dL (12.0-15.0); Immature Granulocyte Absolute 0.02 K/mm3 (0.00-0.031); Immature Granulocyte Percent A 0.3 % (0-0.5); Lymphocytes Absolute Auto 2.45 K/mm3 (0.9-3.2); Lymphocytes Percent Auto 38.2 % (18.3-44.2); Mean Corpuscular HGB Conc 31.3 g/dl (32-36); Mean Corpuscular Hemoglobin 31.7 pg (26-34); Mean Corpuscular Volume 101.4 fl (80-100); Mean Platelet Volume 8.1 fl (7.4-10.4); Monocytes Absolute Auto 0.6 K/mm3 (0.1-0.6); Monocytes Percent Auto 9.7 % (2.6-8.5); Neutrophils Absolute Auto 3.2 K/mm3 (1.3-6.7); Platelet Count Result 127 k/mm3 (150-375); White Blood Count 6.4 K/mm3 (4.5-10.0)
[2024-05-22 15:12] LABS: Alanine Aminotransferase 28 U/L (6-35); Albumin Level 4.1 g/dL (3.5-5.1); Alkaline Phosphatase 67 U/L (38-126); Anion Gap 10 mmol/L (4-12); Aspartate Amino Transferase 25 U/L (14-36); Bilirubin,Total 0.6 mg/dL (0.2-1.3); Blood Urea Nitrogen 20 mg/dL (7-17); Calcium 8.6 mg/dL (8.4-10.2); Carbon Dioxide 24 mmol/L (22-30); Chloride 106 mmol/L (98-107); Estimated Glomerular Filt Rate 45; Glucose 93 mg/dL (65-110); Potassium 4.3 mmol/L (3.4-5.0); Sodium 140 mmol/L (137-145)
[2024-05-22 15:15] LABS: Iron 86 ug/dL (37-170)
[2024-05-22 15:25] LABS: Percent Iron Saturation 25 % (20-50)
[2024-05-22 16:20] LABS: Folic Acid > 20.0 ng/mL (2.76->20)
[2024-05-24 22:19] LABS: Platelet Antibody, Direct NEGATIVE (NEGATIVE)
[2024-05-26 02:43] LABS: Methylmalonic Acid 139 nmol/L (69-390)
[2024-05-27 12:24] LABS: Soluble Transferrin Receptor 3.48 mg/L (0.76-1.76)
== END 2024-05-22 12:16 | disposition home or self-care (01) ==
PROVIDERS: PCP Family Medicine; Visit Provider Internal Medicine Hematology & Oncology
DX: D64.9 Anemia, unspecified (principal); D69.59 Other secondary thrombocytopenia
CPT/HCPCS: 36415; 80053; 82607; 82728; 82746; 83540; 83550; 83921; 84238; 85025; 86023

== ENCOUNTER 2024-05-28 16:26 | Outpatient (CLI) | payer MEDICARE, OTHER, SELFPAY ==
[2024-05-28 17:00] LABS: Albumin Level 4.3 g/dL (3.5-5.1); Anion Gap 8 mmol/L (4-12); Blood Urea Nitrogen 21 mg/dL (7-17); Carbon Dioxide 27 mmol/L (22-30); Chloride 107 mmol/L (98-107); Estimated Glomerular Filt Rate 41; Glucose 92 mg/dL (65-110); Phosphorus 4.2 mg/dL (2.5-4.5); Potassium 4.2 mmol/L (3.4-5.0); Sodium 142 mmol/L (137-145)
[2024-05-28 17:36] LABS: Rheumatoid Factor 13.9 IU/ML (<12)
== END 2024-05-28 16:27 | disposition home or self-care (01) ==
LOC: ANHLAB 16:29
PROVIDERS: PCP Family Medicine; Visit Provider Internal Medicine Nephrology
DX: R94.4 Abnormal results of kidney function studies (principal); R76.0 Raised antibody titer
CPT/HCPCS: 36415; 80069; 86430

== ENCOUNTER 2024-05-31 11:04 | Outpatient (CLI) | payer MEDICARE, OTHER, SELFPAY ==
[2024-05-31 12:11] LABS: Basophils Percent Auto 0.4 % (0.2-1.2); Eosinophils Absolute Auto 0.2 K/mm3 (0-0.3); Eosinophils Percent Auto 3.1 % (0-4.4); Hematocrit 39.8 % (37.0-47.0); Hemoglobin 12.4 g/dL (12.0-15.0); Immature Granulocyte Absolute 0.02 K/mm3 (0.00-0.031); Immature Granulocyte Percent A 0.3 % (0-0.5); Lymphocytes Absolute Auto 2.03 K/mm3 (0.9-3.2); Lymphocytes Percent Auto 27.4 % (18.3-44.2); Mean Corpuscular HGB Conc 31.2 g/dl (32-36); Mean Corpuscular Hemoglobin 31.2 pg (26-34); Mean Corpuscular Volume 100.3 fl (80-100); Mean Platelet Volume 8.6 fl (7.4-10.4); Monocytes Absolute Auto 0.7 K/mm3 (0.1-0.6); Monocytes Percent Auto 8.9 % (2.6-8.5); Neutrophils Absolute Auto 4.5 K/mm3 (1.3-6.7); Neutrophils Percent Auto 59.9 % (45.5-73.1); Platelet Count Result 179 k/mm3 (150-375); Red Blood Count 3.97 M/mm3 (4.2-5.4); Red Cell Distribution Width 14.7 % (11.5-14.5); White Blood Count 7.4 K/mm3 (4.5-10.0)
[2024-05-31 12:13] LABS: Appearance Urine Clear (Clear); Bilirubin Urine Negative (Negative); Blood Urine Negative (Negative); Color Urine Yellow (Yellow); Glucose Urine UA 3+ mg/dL (Negative); Ketones Urine Negative (Negative); Leukocyte Esterase Ur Negative LEU/UL (Negative); Nitrate Urine Negative (Negative); Protein Urine Negative (Negative); Specific Grav Ur 1.009 (1.001-1.035); Urobilinogen Urine 0.2 mg/dL (<2.0)
[2024-05-31 12:14] LABS: Add Urine Microscopic? NO
[2024-05-31 12:38] LABS: Erythrocyte Sedimentation Rate 47 mm/hr (0-20)
[2024-06-03 10:48] LABS: Homocysteine 13.1 umol/L (<10.4)
[2024-06-05 03:05] LABS: Anti-Thrombin III Antigen 107 % normal (80-120)
== END 2024-05-31 11:05 | disposition home or self-care (01) ==
PROVIDERS: PCP Family Medicine; Referring Provider Internal Medicine Nephrology; Visit Provider Ophthalmology
DX: H34.9 Unspecified retinal vascular occlusion (principal); R94.4 Abnormal results of kidney function studies; R76.0 Raised antibody titer
CPT/HCPCS: 36415; 81003; 83090; 85025; 85301; 85303; 85306; 85652; 86146

== ENCOUNTER 2024-06-07 09:19 | Outpatient (CLI) | payer MEDICARE, OTHER, SELFPAY ==
--- NOTE | ~2024-06-07 | US_ITS ---
Abdominal Sonogram: Real-time sonographic imaging of the abdomen was performed. Clinical History: Secondary thrombocytopenia Findings: The liver appears mildly echogenic, with no evidence of solid mass lesion or bile duct dil atation. Main portal vein demonstrates normal direction of flow. Tiny hepatic cyst present. The splee n is mildly enlarged, at 14.2 cm in length. The gallbladder is absent compatible prior cholecystecto my. The common bile duct measures 9 mm. The visualized pancreas, aorta, and IVC are unremarkable. T he right kidney measures 10.7 cm in length and the left kidney measures 12.7 cm. There is no hydrone phrosis. There is a 2.2 cm nonobstructing left lower pole renal stone. Impression: Diffuse fatty infiltration of liver. 2.2 cm nonobstructing left lower pole renal stone. Status post cholecystectomy. Mild splenomegaly. Reviewed, dictated and finalized at [facility]. Impression: Diffuse fatty infiltration of liver. 2.2 cm nonobstructing left lower pole renal stone. Status post cholecystectomy. Mild splenomegaly.
== END 2024-06-07 09:20 | disposition home or self-care (01) ==
PROVIDERS: PCP Family Medicine; Visit Provider Internal Medicine Hematology & Oncology
DX: D69.59 Other secondary thrombocytopenia (principal); K76.0 Fatty (change of) liver, not elsewhere classified; N20.0 Calculus of kidney; R16.1 Splenomegaly, not elsewhere classified; Z90.49 Acquired absence of other specified parts of digestive tract
CPT/HCPCS: 76700

== ENCOUNTER 2024-08-09 09:07 | Outpatient (CLI) | payer MEDICARE, OTHER, SELFPAY ==
--- NOTE | ~2024-08-09 | XR_ITS ---
EXAMINATION: [id number] DATE: 08/09/2024 09:34 INDICATION: Nontraumatic left knee pain TECHNIQUE: Standing AP and lateral views of the left knee were obtained. COMPARISON: None. FINDINGS: Alignment is normal. No fracture. Mild to moderate joint space narrowing and small marginal osteophyt es in the medial compartment. Additional small marginal osteophytes at the lateral and patellofemoral compartments. Loose osteochondral body posterior to the intercondylar notch. Small amount of heterot opic ossification at the lateral epicondyle of the distal left femur which could represent sequela of chronic fibular collateral ligament sprain. Soft tissues are unremarkable with no left knee joint ef fusion. IMPRESSION: 1. Tricompartmental osteoarthritis, mild to moderate severity at the medial compartment and mild in t he lateral and patellofemoral compartments. 2. Heterotopic ossification at the lateral femoral epicondyle which could represent sequela of chroni c fibular collateral ligament sprain. Reviewed, dictated and finalized at location B. IMPRESSION: 1. Tricompartmental osteoarthritis, mild to moderate severity at the medial com partment and mild in the lateral and patellofemoral compartments. 2. Heterotopic ossification at the lateral femoral epicondyle which could repre sent sequela of chronic fibular collateral ligament sprain.
[2024-08-09 10:03] LABS: Hemoglobin A1C 6.4 % (<5.7)
== END 2024-08-09 09:08 | disposition home or self-care (01) ==
LOC: ANHLAB 09:11
PROVIDERS: PCP Family Medicine; Visit Provider Student in an Organized Health Care Education/Training Program
DX: M17.12 Unilateral primary osteoarthritis, left knee (principal); M61.562 Other ossification of muscle, left lower leg; E11.9 Type 2 diabetes mellitus without complications
CPT/HCPCS: 36415; 73560; 83036

== ENCOUNTER 2024-09-10 13:00 | Outpatient (RCR) | payer MEDICARE, OTHER, SELFPAY ==
[2024-07-16 10:56] VITALS: BMI 64.2
[2024-07-16 13:59] VITALS: BMI 64.2
[2024-09-10 13:35] VITALS: BMI 45.2
== END 2024-09-30 13:59 | disposition home or self-care (01) ==
LOC: ANHDMC 13:00
PROVIDERS: PCP Family Medicine; Visit Provider Family Medicine
DX: E11.22 Type 2 diabetes mellitus with diabetic chronic kidney disease (principal); N18.30 Chronic kidney disease, stage 3 unspecified; Z98.84 Bariatric surgery status; Z71.3 Dietary counseling and surveillance
CPT/HCPCS: 97802; 97803

== ENCOUNTER 2024-09-17 15:43 | Outpatient (CLI) | payer MEDICARE, OTHER, SELFPAY ==
[2024-09-17 16:33] LABS: Hematocrit 40.7 % (37.0-47.0); Hemoglobin 13.5 g/dL (12.0-15.0); Mean Corpuscular HGB Conc 33.2 g/dl (32-36); Mean Corpuscular Hemoglobin 30.4 pg (26-34); Mean Corpuscular Volume 91.7 fl (80-100); Mean Platelet Volume 8.8 fl (7.4-10.4); Platelet Count Result 172 k/mm3 (150-375); Red Blood Count 4.44 M/mm3 (4.2-5.4); Red Cell Distribution Width 13.8 % (11.5-14.5); White Blood Count 7.4 K/mm3 (4.5-10.0)
[2024-09-17 16:44] LABS: Anion Gap 9 mmol/L (4-12); Blood Urea Nitrogen 22 mg/dL (7-17); Calcium 8.9 mg/dL (8.4-10.2); Carbon Dioxide 26 mmol/L (22-30); Chloride 100 mmol/L (98-107); Estimated Glomerular Filt Rate 55; Glucose 112 mg/dL (65-110); Phosphorus 3.6 mg/dL (2.5-4.5); Potassium 3.1 mmol/L (3.4-5.0); Sodium 135 mmol/L (137-145)
[2024-09-17 16:53] LABS: Creatinine Urine 40.6 mg/dL; Total Protein Urine Random 12 mg/dL
[2024-09-17 16:57] LABS: Parathyroid Intact 67.5 pg/mL (14.5-75.2)
== END 2024-09-17 15:44 | disposition home or self-care (01) ==
PROVIDERS: PCP Family Medicine; Visit Provider Internal Medicine Nephrology
DX: R94.4 Abnormal results of kidney function studies (principal); E11.9 Type 2 diabetes mellitus without complications
CPT/HCPCS: 36415; 80069; 82570; 83970; 84156; 85027

== ENCOUNTER 2024-10-29 10:56 | Outpatient (CLI) | payer MEDICARE, OTHER, SELFPAY ==
[2024-10-29 11:18] LABS: Basophils Absolute Auto 0.1 K/mm3 (0.0-0.1); Basophils Percent Auto 0.7 % (0.2-1.2); Eosinophils Absolute Auto 0.2 K/mm3 (0-0.3); Eosinophils Percent Auto 3.3 % (0-4.4); Hematocrit 43.4 % (37.0-47.0); Immature Granulocyte Absolute 0.02 K/mm3 (0.00-0.031); Immature Granulocyte Percent A 0.3 % (0-0.5); Lymphocytes Absolute Auto 1.97 K/mm3 (0.9-3.2); Lymphocytes Percent Auto 27.4 % (18.3-44.2); Mean Corpuscular HGB Conc 32.3 g/dl (32-36); Mean Corpuscular Hemoglobin 29.9 pg (26-34); Mean Corpuscular Volume 92.7 fl (80-100); Mean Platelet Volume 8.7 fl (7.4-10.4); Monocytes Absolute Auto 0.7 K/mm3 (0.1-0.6); Neutrophils Absolute Auto 4.2 K/mm3 (1.3-6.7); Neutrophils Percent Auto 58.3 % (45.5-73.1); Platelet Count Result 163 k/mm3 (150-375); Red Blood Count 4.68 M/mm3 (4.2-5.4); Red Cell Distribution Width 13.3 % (11.5-14.5); White Blood Count 7.2 K/mm3 (4.5-10.0)
[2024-10-29 13:06] LABS: Iron 68 ug/dL (37-170)
[2024-10-29 13:07] LABS: Anion Gap 3 mmol/L (4-12); Blood Urea Nitrogen 18 mg/dL (7-17); Calcium 8.4 mg/dL (8.4-10.2); Carbon Dioxide 30 mmol/L (22-30); Chloride 104 mmol/L (98-107); Estimated Glomerular Filt Rate 50; Glucose 120 mg/dL (65-110); Potassium 3.6 mmol/L (3.4-5.0); Sodium 137 mmol/L (137-145)
[2024-10-29 13:15] LABS: Percent Iron Saturation 20 % (20-50)
[2024-11-01 12:29] LABS: Soluble Transferrin Receptor 1.91 mg/L (0.76-1.76)
== END 2024-10-29 10:57 | disposition home or self-care (01) ==
PROVIDERS: PCP Family Medicine; Visit Provider Internal Medicine Hematology & Oncology
DX: D64.9 Anemia, unspecified (principal)
CPT/HCPCS: 36415; 80048; 82728; 83540; 83550; 84238; 85025

== ENCOUNTER 2024-11-26 10:45 | Outpatient (CLI) | payer MEDICARE, OTHER, SELFPAY ==
[2024-11-26 11:17] LABS: Anion Gap 1 mmol/L (4-12); Blood Urea Nitrogen 12 mg/dL (7-17); Calcium 8.6 mg/dL (8.4-10.2); Carbon Dioxide 23 mmol/L (22-30); Chloride 110 mmol/L (98-107); Estimated Glomerular Filt Rate > 60; Glucose 93 mg/dL (65-110); Potassium 3.7 mmol/L (3.4-5.0); Sodium 134 mmol/L (137-145)
[2024-11-26 11:45] LABS: Influenza A QL RT-PCR Negative (Negative); Influenza B QL RT-PCR Negative (Negative); RSV RNA, RT-PCR Negative (Negative); SARS-CoV-2 RNA PCR Negative (Negative)
== END 2024-11-26 10:46 | disposition home or self-care (01) ==
LOC: ANHLAB 10:47
PROVIDERS: PCP Family Medicine; Referring Provider Family Medicine; Visit Provider Internal Medicine Nephrology
DX: R94.4 Abnormal results of kidney function studies (principal); J06.9 Acute upper respiratory infection, unspecified
CPT/HCPCS: 36415; 80048; 87637

== ENCOUNTER 2024-12-12 10:56 | Outpatient (RCR) | payer MEDICARE, OTHER, SELFPAY ==
[2024-12-12 11:00] VITALS: BMI 43.7
[2024-12-12 12:54] VITALS: BMI 43.7
== END 2025-03-03 10:12 | disposition home or self-care (01) ==
LOC: ANHDMC 10:56
PROVIDERS: PCP Family Medicine; Visit Provider Family Medicine
DX: E11.9 Type 2 diabetes mellitus without complications (principal); Z71.3 Dietary counseling and surveillance
CPT/HCPCS: 97803

== ENCOUNTER 2024-12-24 09:00 | Outpatient (RCR) | payer MEDICARE, OTHER, SELFPAY ==
--- OUTSIDE RECORDS SUMMARY | 2024-12-24 09:20 | XMS_ITS | Referral Summary ---
Author Organization [facility] Address [address] [place] [address] Care Team Providers Care Mortgage Branch Manager Name Role Phone Gisela Bro MD Primary Care Provider [phone] Encounters Date Type Department Care Team Description 11/06/2024 Telephone [facility] Rheumatology at [address], [place] [phone] Shelly Mcginnis, FITNESS PROFESSIONAL 11/06/2024 Telephone [facility] Rheumatology at [address], [place] [address] Dinorah Cesar 10/09/2024 Telephone [facility] Rheumatology at [address] [place] [phone] Shelly Mcginnis, FITNESS PROFESSIONAL Lab Results 10/08/2024 Telephone [facility] Rheumatology at [address] [address] Shelly Mcginnis, FITNESS PROFESSIONAL 10/07/2024 Telephone [facility] [address] [place] [address] Alannah Mason RPh 10/07/2024 11:33 AM FOLDER MACHINE ADJUSTER - 10/07/2024 11:59 PM FOLDER MACHINE ADJUSTER Hospital Encounter [facility] [address] [place] [address] Discharge Disposition: Discharge to home or self care 10/07/2024 11:00 AM FOLDER MACHINE ADJUSTER Office Visit [facility] Rheumatology at [facility] [address] [facility] [address] [place] [address] Shelly Mcginnis NP Flu vaccine need (Primary Dx); Rheumatoid arthritis involving multiple sites with positive rheumatoid factor (CMS/HCC) (HCC); Encounter for long-term (current) use of high-risk medication; Immunosuppression due to drug therapy (HCC) from Last 3 Months Allergies Active Allergy Reactions Criticality Noted Date Comments Adhesive Tape-Silicones Medications aspirin (ASPIR-81) 81 mg tablet take 1 tablet by oral route every day 0 0 4 Active biotin 2,500 mcg capsule take 2 capsules every day 0 0 4 Active atorvastatin (LIPITOR) 20 mg tablet take 1 tablet by oral route every day 0 0 4 Active multivitamin tablet tablet take 1 tablet by oral route every day with food 0 0 4 Active furosemide (LASIX) 20 mg tablet TAKE 1 TABLET BY ORAL ROUTE EVERY DAY 30 5 4 Active ascorbic acid (vitamin C) 1,000 mg tablet take 1 by Oral route once 0 0 5 Active nebivolol (BYSTOLIC) 10 mg tablet take 1 tablet by oral route 3 times every day 0 0 4 Active escitalopram (LEXAPRO) 10 mg tablet daily. 2 Active fosinopril (MONOPRIL) 40 mg tablet daily. Active losartan (COZAAR) 100 mg tablet Take 1 tablet (100 mg total) by mouth daily Active chlorthalidone 25 mg tablet Take 1 tablet (25 mg total) by mouth daily 0 Active Trulicity 0.75 mg/0.5 mL pen injector Inject 0.5 mL (0.75 mg total) under the skin once a week On 1 Active PreviDent 5000 Plus 1.1 % cream USE DIRECTED TWICE DAILY WHILE BRUSHING 2 Active cholecalciferol 25 mcg (1,000 unit) tablet Take 1 tablet (1,000 Units total) by mouth daily 2 Active Fish OiL 340-1,000 mg capsule Take 1,000 capsules by mouth 3 tablets daily 2 Active potassium chloride ER 10 mEq CR tablet Take 1 tablet/capsule (10 mEq total) by mouth daily 3 Active cinnamon bark 500 mg capsule Take 1 capsule (500 mg total) by mouth daily Active folic acid (FOLVITE) 1 mg tablet Take 1 tablet (1 mg total) by mouth daily 90 tablet 3 4 Active omeprazole (PriLOSEC) 40 mg capsule Take 1 capsule (40 mg total) by mouth daily 4 Active leflunomide (ARAVA) 10 mg tabletIndicatio ns:Rheumatoid Arthritis Take 1 tablet (10 mg total) by mouth daily 30 tablet 3 4 10/07/20 25 Active adalimumab (Humira,CF, Pen) 40 mg/0.4 mL pen injector kitIndications: Rheumatoid Arthritis Inject 0.4 mL (40 mg total) under the skin every 14 (fourteen) days 2 kit 5 4 Active Active Problems Problem Noted Date Diagnosed Date Immunosuppression due to drug therapy 10/07/2024 Assessment & Plan (10/07/2024 11:29 AM FOLDER MACHINE ADJUSTER): Encourage routine vaccinations. Follow up with PCP. Avoid close contact with infectious individuals. If you become ill, please let us know so we can provide guidance on holding your immunosuppressant medications. Type 2 diabetes mellitus wit h stage 3a chronic kidney disease, with long-term current use of insulin 08/12/2024 Encounter for long-term (cur rent) use of high-risk medication 07/24/2023 Assessment & Plan (10/07/2024 11:29 AM FOLDER MACHINE ADJUSTER): Long-term use of high-risk medication requiring regular monitoring. Labs ordered, no s/s of med tox or infection. Encouraged to work with PCP to make sure all recommended cancer screens and vaccinations are complete. Avoid live-vaccines unless reviewed with electronic components assembler first. Assessment & Plan (12/07/2023 10:51 AM FOLDER MACHINE ADJUSTER): Long-term use of high-risk medication requiring regular monitoring. Labs ordered, no s/s of med tox or infection. Encouraged to work with PCP to make sure all recommended cancer screens and vaccinations are complete. Avoid live-vaccines unless reviewed with electronic components assembler first. Assessment & Plan (07/24/2023 12:36 PM CDT): Long-term use of high-risk medication requiring regular monitoring. Labs ordered, no s/s of med tox or infection. Encouraged to work with PCP to make sure all recommended cancer screens and vaccinations are complete. Avoid live-vaccines unless reviewed with electronic components assembler first. Discussed importance of avoiding repeated skin trauma due to her risks of infection. Will trial sarna lotion for itching. Encouraged to discuss with PCP. Weight loss counseling, encounter for 04/21/2020 Assessment & Plan (04/21/2020 5:06 PM CDT): Discussed that weight loss will require calorie deficit. Calculated basal metabolic rate and estimated total energy expenditure; discussed 500-1000 kcal/day deficit to lose 1-2 lb per week. Asked to keep detailed food diary for at least 1 week and bring to next visit. Discussed relatively small, although significant, role of exercise in weight loss; greater importance in weight maintenance as shown in Look Ahead study and National Weight Control Registry. Discussed recommendation/goal for 150 minutes per week moderate-intensity aerobic exercise. Class 3 severe obesity due t o excess calories with serious comorbidity in adult 04/21/2020 Assessment & Plan (04/21/2020 5:10 PM CDT): Obesity is newly identified. General weight loss/lifestyle modification strategies discussed (elicit support from others; identify saboteurs; non-food rewards, etc). Behavioral treatment: suggested counseling. Diet interventions: as noted. Informal exercise measures discussed, e.g. taking stairs instead of elevator. Regular aerobic exercise program discussed. More detailed recommendations pending review of labs, food record. Discussed possible use of topiramate. PCOS (polycystic ovarian syndrome) 09/03/2019 Restless leg 09/03/2019 BMI 50.0-59.9, adult 03/30/2018 Malabsorption 04/01/2016 History of bariatric surgery 04/01/2016 Rheumatoid arthritis involvi ng multiple sites with positive rheumatoid factor ([facility]) 06/22/2015 Overview (03/02/2017): Rheumatoid arthritis Assessment & Plan (10/07/2024 11:29 AM FOLDER MACHINE ADJUSTER): Stable on leflunomide and humira. Continue same. Labs today. Follow up in 6 months and prn. Assessment & Plan (12/07/2023 12:00 PM FOLDER MACHINE ADJUSTER): Flare in hand symptoms while off humira but was previously stable on humira and MTX. Continue same. Follow up in 3-4 months and prn. Labs today. XRay for hip/LBP. Assessment & Plan (07/24/2023 12:35 PM CDT): Stable on humira and MTX. Continue same. Follow up in 3-4 months and prn. Labs today. Benign hypertension 06/22/2015 Overview (03/02/2017): HTN (hypertension), benign Assessment & Plan (04/21/2020 5:09 PM CDT): BP in acceptable range today. Reviewed role of diet, exercise, weight loss in controlling blood pressure. Recommended low sodium/DASH diet. Continue current medications. Appropriately on MARYLOU-I/ARB. Gastroesophageal reflux disease 06/22/2015 Overview (03/02/2017): GERD (gastroesophageal reflux disease) Obstructive sleep apnea syndrome 06/22/2015 Overview (03/02/2017): TAMIKA on CPAP Assessment & Plan (04/21/2020 5:08 PM CDT): Discussed comorbidities associated with sleep apnea, including effects on weight, and stressed importance of adequate treatment if present. Abnormal thallium stress test 06/22/2015 Overview (03/02/2017): Abnormal nuclear stress test Diabetes mellitus 07/17/2014 Overview (03/02/2017): Diabetes Assessment & Plan (04/21/2020 5:07 PM CDT): Discussed insulin resistance including effect on weight. Recommended low-carb, low-glycemic diet; choose whole grains and avoid more highly processed carbohydrates. Discussed potential benefits of this w/r/t gut microbiome. Referred to ADA and [employer] [facility] websites for additional information on topics including glycemic index/carbohydrate choices, protein sources. Recommend dietitian follow up -- will see if PCP can refer closer to home. Consider change to Saxenda if covered by her insurance. Hypertension 07/17/2014 Overview (03/02/2017): HTN Esophageal reflux finding 07/17/2014 Overview (03/02/2017): Esophageal reflux Depression 07/17/2014 Overview (03/02/2017): Depression Morbid obesity 07/12/2012 Former smoker 07/12/2012 Overview (03/08/2018): Description: quit 22+ years ago. Hyperlipidemia 02/24/2012 Assessment & Plan (04/21/2020 5:08 PM CDT): Discussed role of diet, exercise and weight loss in improving lipid profile. Continue statin therapy. Shortness of breath 01/17/2012 Immunizations Name Administration Dates Next Due Influenza, Quadrivalent, Spl it, Preservative Free, Intramuscular 10/07/2022,09/17/2020,09/03/2019,09/24,08/21/2017,12/01/2016,08/27/2015 Influenza, Trivalent, High D ose, Split, Preservative Free, Intramuscular 10/07/2024 Influenza, Trivalent, IM (MDV) 08/21/2014 Influenza, Unspecified 09/17/2020,2017,12/01/2016,08/27,08/21/2014 Pfizer SARS-CoV-2 Monovalent Vaccination (12+ Yrs) PURPLE 11/15/2021,03/16/2021,02/21/2021 Pfizer Sars-Cov-2 Bivalent V accination (12+ YRS) 10/07/2022 Pneumococcal Conjugate PCV 13 12/01/2016 ZOSTER Recombinant 07/28/2021 Social History Tobacco Use Types Packs/Day Years Used Date Smoking Tobacco: Former Smokeless Tobacco: Never Tobacco Cessation:Counseling Given: Not Answered Comments:Smoking History Packs/day: 2 Cigarettes Alcohol Use Standard Drinks/Week Comments No 0 (1 standard drink = 0.6 oz pur e alcohol) AUDIT-C Answer Date Recorded Q1: How often do you have a drink containing alc ohol? Never 11/03/2022 Average Number of Drinks Not on file 022 Frequency of Binge Drinking Not on file 06/2022 Comments No Sex and Gender Information Value Date Recorded Sex Assigned at Not on file Legal Sex Female 10:44 AM FOLDER MACHINE ADJUSTER Gender Identity Not on file Sexual Orientation Not on file Last Filed Vital Signs Vital Sign Reading Time Taken Comments Blood Pressure 120/78 10/07/2024 11:01 AM FOLDER MACHINE ADJUSTER Pulse 59 07/24/2024 3:35 PM CDT Temperature 36.6 ??C (97.8 ??F) 10/07/2024 11:[address] Respiratory Rate 16 07/24/2024 3:35 PM CDT Oxygen Saturation 97% 07/24/2024 3:35 PM CDT Inhaled Oxygen Concentration - - Weight 130.6 kg (288 lb) 10/07/2024 11:01 AM FOLDER MACHINE ADJUSTER Height 165.1 cm (5' 5 ) 10/07/2024 11:01 AM FOLDER MACHINE ADJUSTER Body Mass Index 47.93 10/07/2024 11:01 AM FOLDER MACHINE ADJUSTER Plan of Treatment Not on file Procedures Procedure Name Priority Date/Time Associated Diagnosis Comments URINALYSIS AND REFLEX TO MICROSCOPIC AND CULTURE Routine 10/07/2024 4:07 PM FOLDER MACHINE ADJUSTER Encounter for long-term (current) use of high-risk medication EGFR Routine 10/07/2024 4:04 PM FOLDER MACHINE ADJUSTER Encounter for long-term (current) use of high-risk medication URINALYSIS, MICROSCOPIC ONLY Routine 10/07/2024 4:04 PM FOLDER MACHINE ADJUSTER Encounter for long-term (current) use of high-risk medication DIFFERENTIAL AUTO Routine 10/07/2024 4:0 4 PM FOLDER MACHINE ADJUSTER Encounter for long-term (current) use of high-risk medication CBC WITH AUTO DIFFERENTIAL Routine 10/07/2024 4:04 PM FOLDER MACHINE ADJUSTER Encounter for long-term (current) use of high-risk medication COMPREHENSIVE METABOLIC PANEL Routine 10/07/2024 4:04 PM FOLDER MACHINE ADJUSTER Encounter for long-term (current) use of high-risk medication CRP (ACUTE PHASE) Routine 10/07/2024 4:0 4 PM FOLDER MACHINE ADJUSTER Rheumatoid arthritis involving multiple sites with positive rheumatoid factor (CMS/HCC) (HCC) ERYTHROCYTE SEDIMENTATION RATE Routine 10/07/2024 4:04 PM FOLDER MACHINE ADJUSTER Rheumatoid arthritis involving multiple sites with positive rheumatoid factor (CMS/HCC) (HCC) MAGNESIUM Routine 10/07/2024 4:04 PM FOLDER MACHINE ADJUSTER Encounter for long-term (current) use of high-risk medication HEPATITIS C ANTIBODY Routine 06/16/2021 2:53 PM CDT Rheumatoid arthritis involving multiple sites with positive rheumatoid factor (CMS/HCC) (HCC) High risk medication use HEMOGLOBIN A1C Routine 04/05/2019 12:54 PM CDT Intestinal malabsorption, unspecified type LIPID PANEL Routine 04/05/2019 12:54 PM CDT Intestinal malabsorption, unspecified type from Last 3 Months or Most Recently Relevant to Health Maintenance Results * (ABNORMAL) Urinalysis reflex to microscopic and culture Urine, clean voided (10/07/2024 4:07 PM FOLDER MACHINE ADJUSTER) Color, ur Yellow Yellow Clarity, ur Clear Clear [facility] Specific gravity, ur 1.008 1.003 - 1.030 [facility] pH, urine 6.0 [facility] Comment: Interpretive Data ? Urine pH is affected by diet, medications, systemic acid-base disturbances, and renal tubular function. ??pH may affect urinary stone formation. ??For example, urine pH below 6.0 may help reduce the tendency for calcium phosphate stones and pH greater than 6.0 may reduce the tendency for uric acid stone formation. Source: [facility] Current Interpretive Data was last revised on 2017 Protein, ur ql Negative Negative [facility] Glucose, ur ql 3+(A) Negative [facility] Ketones, ur Negative Negative [facility] Bilirubin, ur Negative Negative [facility] Blood, ur Negative Negative [facility] Urobilinogen, ur <2.0 <2.0 mg/dL [facility] Nitrite, ur Negative Negative [facility] Leukocyte esterase, ur 1+(A) Negative [facility] UA reflex comment Reflex to microscopic UA will be performed. [facility] Urine, clean voided 10/07/2024 4:07 PM FOLDER MACHINE ADJUSTER 10/07/2024 4:07 PM FOLDER MACHINE ADJUSTER us Shelly Mcginnis FITNESS PROFESSIONAL LAB MICROBIOLOGY - GENERAL OR DERABLES Final Result [facility] [address] Department [place] [address] * (ABNORMAL) eGFR (10/07/2024 4:04 PM FOLDER MACHINE ADJUSTER) eGFR 52(L) >=60 mL/min/1. 73 m2 Comment: Interpretive Data Reference Interval Normal ?>/= 90 mL/min/1.73m2 Mildly decreased* ? 60 - 89 mL/min/1.73m2 Mildly to moderately decreased ?45 - 59 mL/min/1.73m2 Moderately to severely decreased ??30 - 44 mL/min/1.73m2 Severely decreased ?15 - 29 mL/min/1.73m2 Kidney Failure ?< 15 ??mL/min/1.73m2 *Relative to young adult level Estimated glomerular filtration rate is determined by the 2020 CKD-EPI equation recommended by the National Kidney Foundation (A Unifying Approach to GFR Estimation: Recommendations of the NKF-ASK Task Force on Reassessing the Inclusion of Race in Diagnosing Kidney Disease, JASN 2020). The CKD-EPI equation should not be used for patients with unstable renal function and has not been validated in children and those over 70. Current interpretive data was last reviewed 2021. Blood 10/07/2024 4:04 PM FOLDER MACHINE ADJUSTER 10/07/2024 4:04 PM FOLDER MACHINE ADJUSTER us Shelly Mcginnis FITNESS PROFESSIONAL LAB BLOOD ORDERABLES Final Re sult [facility] [address] Department [place] [address] * Differential, auto (10/07/2024 4:04 PM FOLDER MACHINE ADJUSTER) Neutrophil abs 3.9 1.5 - 6.5 K/cumm Imm gran abs 0.0 0.0 - 0.1 K/cumm [facility] Lymphocyte abs 2.6 0.8 - 3.3 K/cumm [facility] Monocyte abs 0.8 0.2 - 0.8 K/cumm [facility] Eosinophil abs 0.2 0.0 - 0.5 K/cumm [facility] Basophil abs 0.0 0.0 - 0.1 K/cumm [facility] Neutrophil pct 51.6 % [facility] Comment: Interpretive Data Percent cell count reference ranges are not reported, since discordance with absolute values may lead to misinterpretation of CBC data. Current Interpretive Data was last revised on 2018. Imm gran pct 0.3 % [facility] Comment: Interpretive Data Percent cell count reference ranges are not reported, since discordance with absolute values may lead to misinterpretation of CBC data. Current Interpretive Data was last revised on 2018. Lymphocyte pct 34.3 % [facility] Comment: Interpretive Data Percent cell count reference ranges are not reported, since discordance with absolute values may lead to misinterpretation of CBC data. Current Interpretive Data was last revised on 2018. Monocyte pct 10.3 % [facility] Comment: Interpretive Data Percent cell count reference ranges are not reported, since discordance with absolute values may lead to misinterpretation of CBC data. Current Interpretive Data was last revised on 2018. Eosinophil pct 3.0 % [facility] Comment: Interpretive Data Percent cell count reference ranges are not reported, since discordance with absolute values may lead to misinterpretation of CBC data. Current Interpretive Data was last revised on 2018. Basophil pct 0.5 % [facility] Comment: Interpretive Data Percent cell count reference ranges are not reported, since discordance with absolute values may lead to misinterpretation of CBC data. Current Interpretive Data was last revised on 2018. Blood 10/07/2024 4:04 PM FOLDER MACHINE ADJUSTER 10/07/2024 4:04 PM FOLDER MACHINE ADJUSTER us Shelly Mcginnis FITNESS PROFESSIONAL LAB BLOOD ORDERABLES Final Re sult [facility] [address] Department [place] [address] * (ABNORMAL) CBC with auto differential (10/07/2024 4:04 PM FOLDER MACHINE ADJUSTER) WBC 7.6 3.8 - 9.9 K/cumm Hgb 13.9 11.9 - 15.5 g/dL [facility] Hct 42.4 35.6 - 45.5 % [facility] Plt 196 150 - 400 K/cumm [facility] MPV 9.4 9.1 - 12.3 fL [facility] RBC 4.53 3.90 - 5.20 M/cumm [facility] MCV 93.6 81.3 - 96.4 fL [facility] MCH 30.7 27.1 - 33.3 pg [facility] MCHC 32.8 32.3 - 35.7 g/dL [facility] RDW CV 14.1 11.1 - 14.9 % [facility] RDW SD 48.6(H) 35.7 - 48.1 fL [facility] NRBC abs 0.00 0.00 - 0.01 K/cumm [facility] Blood 10/07/2024 4:04 PM FOLDER MACHINE ADJUSTER 10/07/2024 4:04 PM FOLDER MACHINE ADJUSTER Shelly Mcginnis FITNESS PROFESSIONAL LAB BLOOD ORDERABLES Final Re sult Performing Organization Address [facility] Co de Phone Number [facility] [address] [facility] [place], [place] [id number] * Urinalysis, microscopic only (10/07/2024 4:04 PM FOLDER MACHINE ADJUSTER) WBC, ur 0-5 0 - 5 /HPF RBC, ur 0-2 0 - 2 /HPF [facility] Epithelial cells, squamous, ur 1-5 0 - 5 /HPF [facility] Culture Reflex Comment Reflex conditions for urine culture (WBC >10) not met. [facility] Urine, clean voided 10/07/2024 4:04 PM FOLDER MACHINE ADJUSTER 10/07/2024 4:04 PM FOLDER MACHINE ADJUSTER Shelly Mcginnis FITNESS PROFESSIONAL LAB URINE ORDERABLES Final Re sult Performing Organization Address [facility] de Phone Number [facility] [address] [facility] [place] [address] * Erythrocyte sedimentation rate (10/07/2024 4:04 PM FOLDER MACHINE ADJUSTER) Erythrocyte sedimentation rate 21 1 - 30 mm/hr Blood 10/07/2024 4:04 PM FOLDER MACHINE ADJUSTER 10/07/2024 4:04 PM FOLDER MACHINE ADJUSTER Shelly Mcginnis FITNESS PROFESSIONAL LAB BLOOD ORDERABLES Final Re sult Performing Organization Address [facility] Co de Phone Number [facility] [address] Department of Connect [place], [place] [id number] * CRP (acute phase) (10/07/2024 4:04 PM FOLDER MACHINE ADJUSTER) [facility] CRP <3.0 <=10.0 mg/L Blood 10/07/2024 4:04 PM FOLDER MACHINE ADJUSTER 10/07/2024 4:04 PM FOLDER MACHINE ADJUSTER Shelly Mcginnis FITNESS PROFESSIONAL LAB BLOOD ORDERABLES Final Re sult Performing Organization Address [facility] Co de Phone Number [facility] [address] [facility] [place] [address] * Magnesium (10/07/2024 4:04 PM FOLDER MACHINE ADJUSTER) [facility] Magnesium 2.0 1.4 - 2.5 mg/dL Blood 10/07/2024 4:04 PM FOLDER MACHINE ADJUSTER 10/07/2024 4:04 PM FOLDER MACHINE ADJUSTER Shelly Mcginnis FITNESS PROFESSIONAL LAB BLOOD ORDERABLES Final Re sult Performing Organization Address [facility] de Phone Number [facility] [address] [facility] [place] [address] * (ABNORMAL) Comprehensive metabolic panel (10/07/2024 4:04 PM FOLDER MACHINE ADJUSTER) [facility] Sodium 138 135 - 145 mmol/L Potassium, pl 3.3 3.3 - 4.9 mmol/L [facility] Chloride 101 97 - 110 mmol/L [facility] CO2 25 22 - 32 mmol/L [facility] Anion gap 12 2 - 15 mmol/L [facility] BUN 16 6 - 25 mg/dL [facility] Creatinine 1.16(H) 0.60 - 1.10 mg/dL [facility] Glucose 107 70 - 199 mg/dL [facility] Comment: Interpretive Data Fasting glucose >/= 126 mg/dl is diagnostic for diabetes. ?? Fasting is defined as no caloric intake for at least 8 hours. Fasting glucose between 100 mg/dl to 125 mg/dl is diagnostic of prediabetes. In a patient with classic symptoms of hyperglycemia or hyperglycemic crisis, a random glucose >/= 200 mg/dl is diagnostic for diabetes. In the absence of unequivocal hyperglycemia, results should be confirmed by repeat testing. The classification and Diagnosis of Diabetes Diabetes Care 2021; 46: S19-S40. Current interpretive data was last revised 2022. Calcium 8.8 8.5 - 10.3 mg/dL [facility] Bilirubin, total 0.6 0.1 - 1.2 mg/dL [facility] Protein, pl 7.3 6.5 - 8.5 g/dL [facility] Albumin 4.0 3.5 - 5.0 g/dL [facility] Alk phos 72 40 - 130 Units/L [facility] ALT 28 7 - 45 Units/L [facility] AST 21 10 - 45 Units/L [facility] Blood 10/07/2024 4:04 PM FOLDER MACHINE ADJUSTER 10/07/2024 4:04 PM FOLDER MACHINE ADJUSTER Shelly Mcginnis NP LAB BLOOD ORDERABLES Final Re sult Performing Organization Address [facility] Co de Phone Number [facility] [address] [email or web address] [address] * Hepatitis C antibody (06/16/2021 2:53 PM CDT) Hep C Ab Nonreactive Nonreactive [facility] Comment: Interpretive Data Nonreactive: Antibodies to HCV not detected. Does NOT exclude the possibility of recent exposure to HCV. Equivocal: Equivocal for HCV antibodies. Supplemental molecular testing will be automatically performed to determine infection status in accordance with current CDC screening recommendations. ?? Reactive: Positive for HCV antibodies. ??This may represent current or past HCV infection. Supplemental molecular testing will be automatically performed to determine ??current infection status in accordance with current CDC screening recommendations. Interpretive data was last revised on 2020. Blood specimen (specimen) 06/16/2021 2:53 PM CDT 06/16/2021 5:54 PM CDT Elizabeth Devine MD LAB MICROBIOLOGY - GENERA L ORDERABLES Final Result Performing Organization Address [facility] Co de Phone Number [facility] [address] Department [place] [address] * (ABNORMAL) Hemoglobin A1c (04/05/2019 12:54 PM CDT) Hgb A1C 7.4(H) 4.0 - 5.6 % [facility] Estimated Average Glucose 166 mg/dL [facility] Comment: The ADA recommends reporting an estimated Average Glucose (eAG) with all Hemoglobin A1c results using the equation derived from a study of 507 normal and diabetic adults. ??Minority populations were underrepresented and children were not included. ?? (Diabetes Care 31:7395-4383, 2008). ??The eAG is not equivalent to a fasting glucose. Blood specimen (specimen) 04/05/2019 12:54 PM CDT 04/05/2019 1:11 PM CDT Narrative [facility] - 04/05/2019 4:40 PM CDT Sourav Bolanos FITNESS PROFESSIONAL LAB BLOOD ORDERABLES Final Result [facility] Department [place] [address] * (ABNORMAL) Lipid panel (04/05/2019 12:54 PM CDT) [facility] Cholesterol 114 30 - 199 mg/dL [facility] Comment: Interpretive Data Ages < or = 19 years ??Acceptable: ? <170 mg/dL ??Borderline high: ??170-199 mg/dL ??High: ? >or= 200 mg/dL Ages > or = 20 years ??Desirable: ?<200 mg/dL ??Borderline high: ??200-239 mg/dL ??High: ? >or= 240 mg/dL Literature References: 1. Expert Panel on Integrated Guidelines for Cardiovascular Health and Risk Reduction in Children and Adolescents. Pediatrics 2011;128:S213 2. NCEP Expert Panel. Circulation 2004;110:227 Current Interpretive Data was last revised on 2018. Triglycerides 151(H) <=149 mg/dL [facility] Comment: Interpretive Data Ages < or = 9 years ??Acceptable: ? <75 mg/dL ??Borderline high: ??75-99 mg/dL ??High: ? >or= 100 mg/dL Ages 10 to 20 years ??Acceptable: ? <90 mg/dL ??Borderline high: ??90-129 mg/dL ??High: ? >or= 130 mg/dL Ages > or = 20 years ??Desirable: ?<150 mg/dL ??Borderline high: ??150-199 mg/dL ??High: ? 200-499 mg/dL ?Very high: ?? >or= 499 mg/dL Literature References: 1. Expert Panel on Integrated Guidelines for Cardiovascular Health and Risk Reduction in Children and Adolescents. Pediatrics 2011;128:S213 2. NCEP Expert Panel. Circulation 2004;110:227 Current Interpretive Data was last revised on 2018. HDL 39(L) >=40 mg/dL [facility] Comment: Interpretive Data Ages < or = 19 years ??Acceptable: ? >45 mg/dL ??Borderline low: ?? 40-45 mg/dL ??Low: ? <40 mg/dL Ages > or = 20 years ??Desirable: ?>or= 60 mg/dL ??Low: ? <40 mg/dL Literature References: 1. Expert Panel on Integrated Guidelines for Cardiovascular Health and Risk Reduction in Children and Adolescents. Pediatrics 2011;128:S213 2. NCEP Expert Panel. Circulation 2004;110:227 Current Interpretive Data was last revised on 2018. LDL, calculated 45 <=129 mg/dL [facility] Comment: Interpretive Data Ages < or = 19 years ??Acceptable: ? <110 mg/dL ??Borderline high: ??110-129 mg/dL ??High: ?>or= 130 mg/dL Ages > or = 20 years ??Optimal: ? <100 mg/dL ??Near optimal: ?100-129 mg/dL ??Borderline high: ?? 130-159 mg/dL ??High: ?>160 mg/dL Literature References: 1. Expert Panel on Integrated Guidelines for Cardiovascular Health and Risk Reduction in Children and Adolescents. Pediatrics 2011;128:S213 2. NCEP Expert Panel. Circulation 2004;110:227 Current Interpretive Data was last revised on 2018. Non-HDL Cholesterol 75 mg/dL [facility] Comment: Interpretive Data Ages < or = 19 years ??Acceptable: ?<120 mg/dL ??Borderline high: ??120-144 mg/dL ??High: ?>145 mg/dL Ages > or = 20 years ??When triglycerides are >200 mg/dL, Non-HDL cholesterol is a secondary target of ? therapy with treatment goals that are 30 mg/dL greater than the LDL cholesterol target. ? Literature References: 1. Expert Panel on Integrated Guidelines for Cardiovascular Health and Risk Reduction in Children and Adolescents. Pediatrics 2011;128:S213 2. NCEP Expert Panel. Circulation 2004;110:227 Current Interpretive Data was last revised on 2018. Chol/HDL ratio 3 [facility] Blood specimen (specimen) 04/05/2019 12:54 PM CDT 04/05/2019 1:11 PM CDT Narrative [facility] - 04/05/2019 1:55 PM CDT us Sourav Bolanos FITNESS PROFESSIONAL LAB BLOOD ORDERABLES Final Result [facility] [place] [address] from Last 3 Months or Most Recently Relevant to Health Maintenance Insurance [facility] CLAIMS MEDICARE SOLUTIONS MEDICARE SOLUTIONS [facility] Advance Directives For more information, please contact: [phone] Documents on File Type Date Recorded 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
--- OUTSIDE RECORDS SUMMARY | 2024-12-24 09:20 | XMS_ITS | Clinical Summary ---
Author Organization [facility] Address [address] [place] [address]. [place] [address] [place] [address] Care Team Providers Care Policy Advisor Name Role Phone Merrill Mederos MD Primary Care Provider Unavail able Allergies Active Allergy Reactions Criticality Noted Date Comments Tape Rash Low 04/07/2022 Medications adalimumab (HUMIRA PEN) 40 MG/0.4ML pen-injector kit Inject 0.4 mLs (40 mg total) into the skin. 02/09/2022 Active ASPIRIN ADULT LOW DOSE 81 MG tablet 02/16/2022 Active atenolol 100 MG tablet Take 100 mg by mouth daily. Active atorvastatin 20 MG tablet 02/16/2022 Active chlorthalidone 25 MG tablet 02/16/2022 Active Cholecalciferol (VITAMIN D) 125 MCG (5000 UT) Cap 01/28/2022 Active TRULICITY 0.75 MG/0.5ML injection 02/16/2022 Active folic acid 1 MG tablet Take 1 tablet (1 mg total) by mouth daily. 02/09/2022 Active furosemide 40 MG tablet Take 1 tablet (40 mg total) by mouth daily. Active fosinopril 40 MG tablet daily. Active losartan 100 MG tablet Take 1 tablet (100 mg total) by mouth daily. Active metFORMIN 500 MG tablet Take 500 mg by mouth daily. Active methotrexate 2.5 MG tablet 02/10/2022 Activ e BYSTOLIC 10 MG tablet 11/16/2021 Active fish oil 1000 MG Cap capsule 01/28/2022 Acti ve omeprazole 20 MG capsule Take 1 capsule (20 mg total) by mouth daily. Active Cinnamon 500 MG capsule Take 500 mg by mouth daily. Active potassium chloride CR (K-TAB) 10 MEQ Tab CR tabletIndicatio ns:Hypokalemia Take 1 tablet (10 mEq total) by mouth daily. 90 tablet 3 10/13/2023 Active Active Problems Problem Noted Date Diagnosed Date Hypokalemia 02/06/2023 Stage 3a chronic kidney disease ([facility] ) 04/07/2022 Type 2 diabetes mellitus wit h stage 3a chronic kidney disease, with long-term current use of insulin ([facility]) 04/07/2022 Primary hypertension 04/07/2022 Immunizations Name Administration Dates Next Due Influenza (Generic) 08/21/2014 Influenza Adult (Generic) 09/17/2020,06/2019,09/24/2018,08/21/2017,2016,08/27/2015 Pneumococcal (Prevnar 13) 12/01/2016 Social History Tobacco Use Types Packs/Day Years Used Date Smoking Tobacco: Former Cigarettes 1 10 1 982 - 1991 Smokeless Tobacco: Never Tobacco Cessation:Counseling Given: No Alcohol Use Standard Drinks/Week Comments Never 0 (1 standard drink = 0.6 oz pur e alcohol) PHQ-2 Answer Date Recorded Patient Health Questionnaire-2 Score 2 02/06/2023 Comments No Sex and Gender Information Value Date Recorded Sex Assigned at Not on file Legal Sex Female 4:17 PM CDT Gender Identity Not on file Sexual Orientation Not on file Last Filed Vital Signs Vital Sign Reading Time Taken Comments Blood Pressure 125/68 02/06/2023 1:37 PM CDT Pulse 57 02/06/2023 1:37 PM CDT Temperature 36.4 ??C (97.5 ??F) 02/06/2023 1:37 PM CD T Respiratory Rate 18 05/06/2022 10:37 AM CDT Oxygen Saturation 97% 02/06/2023 1:37 PM CDT Inhaled Oxygen Concentration - - Weight 147.4 kg (325 lb) 02/06/2023 1:37 PM CDT Height 170.2 cm (5' 7 ) 02/06/2023 1:37 PM CDT Body Mass Index 50.9 02/06/2023 1:37 PM CDT Plan of Treatment Health Maintenance Due Date Last Done Comments Colorectal Cancer Screening Colonoscopy (10 Years) 1958 Kidney Health Evaluation 1958 Lipid Panel 1958 Diabetes: Retinopathy Eye Exam 1976 Hepatitis C 1976 DTaP, Tdap and Td Vaccines (1 - Tdap) 1977 Mammogram Screening 1998 Pneumococcal Vaccine: 65+ Years (2 of 2 - PPSV23 or PCV20) 01/26/2017 12/01/2016 RSV Immunization or 60+ Years (1 - Risk 60-74 years 1-dose series) 2018 Zoster Vaccines (2 of 2) 09/22/2021 07/28/2021 Hemoglobin A1C 08/31/2023 03/01/2023 Dexa Scan (General) 2023 PHQ-2 (Physician Benton) 02/07/2024 02/06/2023 COVID-19 Vaccine ( season) 2024 10/07/2022, 10/07/2022, 11/15/2021, Additional history exists Influenza Adult (#1) 2024 10/07/2022, 09/17/2020, 09/03/2019, Additional history exists PHQ-2 (Physician Benton) 11/27/2024 02/06/2023 Meningococcal B Vaccine Aged Out No l onger eligible based on patient's age to complete this topic Meningococcal Vaccine Aged Out No brandyn chuck eligible based on patient's age to complete this topic RSV Immunizations Under 20 Months Aged Out No longer eligible based on patient's age to complete this topic Procedures Procedure Name Priority Date/Time Associated Diagnosis Comments HEMOGLOBIN, GLYCOSYLATED Routine 03/01/2023 12:56 PM CDT Type 2 diabetes mellitus with stage 3a chronic kidney disease, with long-term current use of insulin ([facility]) from Last 3 Months or Most Recently Relevant to Health Maintenance Results * (ABNORMAL) HEMOGLOBIN, GLYCOSYLATED (03/01/2023 12:56 PM CDT) HGB A1C 7.5(H) <5.7 % 03/01/2023 2:01 PM CDT [facility] Comment: ADA GUIDELINES 2010 5.7 TO 6.4% INCREASED RISK OF DIABETES > OR = 6.5% CONSISTENT WITH DIABETES ESTIMATED AVG GLUCOSE 169 mg/dL 03/01/2023 2:01 PM CDT [facility] 03/01/2023 12:5 6 PM CDT Mrerill Mederos MD LABORATORY Final Result [facility] [address] [place] [address], from Last 3 Months or Most Recently Relevant to Health Maintenance Insurance [employer] [facility] BLUE [employer] BLUE [facility] Care Teams Policy Advisor Relationship Specialty Start Date End Date Merrill Mederos MD PCP - General FAMILY PRACTICE 03/01/23
--- OUTSIDE RECORDS SUMMARY | 2024-12-24 09:20 | XMS_ITS | Clinical Summary ---
Author Organization [facility] Address [address] [place] [address] Phone Care Team Providers Care Stable Hand Name Role Phone Gisela Bro MD Primary Care Provider [phone] Allergies No known active allergies Medications atorvastatin (LIPITOR) 20 mg tablet Take 20 mg by mouth daily. 2 Active chlorthalidone (HYGROTON) 25 mg tablet Take 25 mg by mouth daily. 2 Active cholecalcifero l, Vitamin D3, 125 mcg (5,000 unit) Capsule Take 5,000 Units by mouth daily. 2 Active nebivoloL (BYSTOLIC) 10 mg Tablet Take 10 mg by mouth 3 times daily. 1 Active fish oil-omega-3 fatty acids (Fish OiL) 340-1,000 mg Capsule Take 1,000 Capsules by mouth. 2 Active omeprazole (PriLOSEC) 40 mg Capsule, Delayed Release(E.C.) Take 40 mg by mouth daily. 4 Active potassium CHLORIDE (Klor-Con) 20 mEq Packet Take 20 mEq by mouth daily. 4 Active ascorbic acid, vitamin C, (VITAMIN C) 1,000 mg Tablet Take 1,000 mg by mouth daily. Active mecobalamin, vitamin B12, 1,000 mcg Tablet, Chewable Take 500 mcg by mouth daily. Active Cinnamon Bark 500 mg Capsule Take 500 mg by mouth daily. Active Trulicity 1.5 mg/0.5 mL injection 4 Active fluoride, sodium, (PreviDent 5000 Plus) 1.1 % Cream USE DIRECTED TWICE DAILY WHILE BRUSHING 2 Active adalimumab (Humira,CF, Pen) 40 mg/0.4 mL Pen Injector Kit Inject 40 mg by subcutaneous injection one time only. 2 12/06/19 folic acid (FOLVITE) 1 mg tablet Take 1 mg by mouth daily. 2 12/06/19 25 Active Problems Patient Care Coordination No te Formatting of this note migh t be different from the original. Primary Care: Tomi Gomez MD Referring Provider: Tomi Gomez [address] [place] [address] Other: Chirstina Janet Problem Noted Date Diagnosed Date Breast lump 04/05/2010 PCOS (polycystic ovarian syndrome) HTN (hypertension) Acid reflux Diabetes Sleep apnea Restless leg Encounters Date Type Department Care Team Description 12/17/2024 External Device Data [facility] ABSTRACTION Provider, Abstract 12/10/2024 External Device Data [facility]STRACTION Provider, Abstract 12/03/2024 External Device Data [facility]CTION Provider, Abstract 11/05/2024 2:45 PM FIRE AND SAFETY HELPER Office Visit [facility] - [address] [place] [address] Imer Astorga MD Chronic anemia (Primary Dx) 11/05/2024 Orders Only [facility] [address] [place] [address] Imer Astorga MD 10/29/2024 Orders Only [facility] [address] [place] [address] Imer Astorga MD 09/25/2024 External Device Data [facility] ABSTRACTION Provider, Abstract from Last 3 Months Family History Medical History Relation Name Comments Heart Disease Brother Diabetes Father Heart Disease Father heart attack No Known Problems Mother Cancer - Other Sister 5 sisters Diabetes Sister 5 sisters Heart Disease Sister 5 sisters Stroke Sister 5 sisters Relation Name Status Comments Brother Alive Father Mother Sister 5 sisters Social History Tobacco Use Types Packs/Day Years Used Date Smoking Tobacco: Former Cigarettes 1 10 Q uit: 05/22/1994 Tobacco Cessation:Counseling Given: Not Answered Comments:1988 Alcohol Use Standard Drinks/Week Comments Not Currently 0 (1 standard drink = 0.6 oz pur e alcohol) rarely Comments Unknown Sex and Gender Information Value Date Recorded Sex Assigned at Not on file Legal Sex Female 5:53 AM FIRE AND SAFETY HELPER Gender Identity Not on file Sexual Orientation Not on file Last Filed Vital Signs Vital Sign Reading Time Taken Comments Blood Pressure 102/54 11/05/2024 2:44 PM FIRE AND SAFETY HELPER Pulse 60 11/05/2024 2:44 PM FIRE AND SAFETY HELPER Temperature 36.4 ??C (97.5 ??F) 11/05/2024 2:44 PM CS T Respiratory Rate 18 11/05/2024 2:44 PM FIRE AND SAFETY HELPER Oxygen Saturation 97% 11/05/2024 2:44 PM FIRE AND SAFETY HELPER Inhaled Oxygen Concentration - - Weight 128.8 kg (284 lb) 11/05/2024 2:44 PM FIRE AND SAFETY HELPER Height 170.2 cm (5' 7 ) 05/22/2024 10:43 AM CDT Body Mass Index 44.48 05/22/2024 10:43 AM CDT Plan of Treatment Health Maintenance Due Date Last Done Comments DIABETES ANNUAL RETINAL EXAM 1976 DIABETES MICROALBUMIN ANNUAL SCREEN 1976 LDL CHOLESTEROL ANNUAL 1976 COLORECTAL SCREENING 2003 Colorectal Cancer Screening 2003 FIT-DNA Q 3 years 2003 FIT/FOBT Q 1 year 2003 Flex Sig/CT Colonography Q 5 years 2003 BREAST CANCER SCREENING 04/05/2011 04/05/20 10, 12/29/2008, 07/26/2007, Additional history exists PNEUMOCOCCAL VACCINE 65+ YEA RS (2 of 2 - PPSV23) 01/26/2017 12/01/2016 RSV VACCINE (60+ or ) (1 - Risk 60-74 years 1-dose series) 2018 DIABETES ANNUAL FOOT EXAM 01/23/2019 01/23/2018 DIABETES HBA1C Q 6 MONTHS 08/31/2023 03/01/2023, 08/2019 OSTEOPOROSIS SCREENING 2023 COVID-19 Vaccine (5 - 2023-2 5 season) 2024 10/07/2022, 11/15/2021, 03/16/2021, Additional history exists DTAP/TDAP/TD VACCINES (2 - T d or Tdap) 08/30/2031 08/30/2021 ZOSTER VACCINE Completed 11/08/2021, 02/2021, 07/28/2021 INFLUENZA VACCINE Completed 10/07/2024, , 11/08/2021, Additional history exists Procedures Procedure Name Priority Date/Time Associated Diagnosis Comments TRANSFERRIN RECEPTOR TFR SOLUBLE Routine 11/01/2024 2:35 PM FIRE AND SAFETY HELPER IRON LEVEL Routine 10/29/2024 3:41 PM FIRE AND SAFETY HELPER BASIC METABOLIC PANEL Routine 10/29/2024 3:40 PM FIRE AND SAFETY HELPER MAMMO SCREEN BILAT W OR WO CAD Routine 04/05/2010 from Last 3 Months or Most Recently Relevant to Health Maintenance Results * TRANSFERRIN RECEPTOR TFR SOLUBLE (11/01/2024 2:35 PM FIRE AND SAFETY HELPER) Blood Imer Astorga MD CHEMISTRY ORDERABLES Final Resu lt * IRON LEVEL (10/29/2024 3:41 PM FIRE AND SAFETY HELPER) Blood us Imer Astorga MD CHEMISTRY ORDERABLES Final Resu lt * BASIC METABOLIC PANEL (10/29/2024 3:40 PM FIRE AND SAFETY HELPER) Blood us Imer Astorga MD CHEMISTRY ORDERABLES Final Resu lt * MAMMO DIGITAL SCREEN BILAT (04/05/2010) Anatomical Region Laterality Modality Breast Bilateral Other Milli Schultz MD MAMMO ORDERABLES Final Resul t from Last 3 Months or Most Recently Relevant to Health Maintenance Insurance [employer] BLUE ACCESS/TRUE BLUE PPO [facility] [id number] [employer] LIFE Care Teams Stable Hand Relationship Specialty Start Date End Date Gisela Bro MD [address] [place] [address] PCP - General Family Practice 11/05/24
--- OUTSIDE RECORDS SUMMARY | 2024-12-24 09:20 | XMS_ITS | Clinical Summary ---
Author Organization [facility] Address [address] [place] [address] Care Team Providers Care Digital Forensic Examiner Name Role Phone Gisela Bro MD Primary Care Provider Allergies Active Allergy Reactions Criticality Noted Date [...] 10/07/2024 Assessment & Plan (10/07/2024 11:29 AM GRANITE CUTTER APPRENTICE): Encourage routine vaccinations. Follow up with PCP. [...] 07/24/2023 Assessment & Plan (10/07/2024 11:29 AM GRANITE CUTTER APPRENTICE): Long-term use of high-risk medication requiring regular monitoring. Labs ordered, no s/s of med tox or infection. Encouraged to work with PCP to make sure all recommended cancer screens and vaccinations are complete. Avoid live-vaccines unless reviewed with recruitment and outreach assistant first. Assessment & Plan (12/07/2023 10:51 AM GRANITE CUTTER APPRENTICE): Long-term use of high-risk medication requiring regular monitoring. Labs ordered, no s/s of med tox or infection. Encouraged to work with PCP to make sure all recommended cancer screens and vaccinations are complete. Avoid live-vaccines unless reviewed with recruitment and outreach assistant first. Assessment & Plan (07/24/2023 12:36 PM CDT): Long-term use of high-risk medication requiring regular monitoring. Labs ordered, no s/s of med tox or infection. Encouraged to work with PCP to make sure all recommended cancer screens and vaccinations are complete. Avoid live-vaccines unless reviewed with recruitment and outreach assistant first. Discussed importance of avoiding repeated skin [...] ng multiple sites with positive rheumatoid factor ([facility] 06/22/2015 Overview (03/02/2017): Rheumatoid arthritis Assessment & Plan (10/07/2024 11:29 AM GRANITE CUTTER APPRENTICE): Stable on leflunomide and humira. Continue same. Labs today. Follow up in 6 months and prn. Assessment & Plan (12/07/2023 12:00 PM GRANITE CUTTER APPRENTICE): Flare in hand symptoms while off humira [...] w/r/t gut microbiome. Referred to ADA and [employer] websites for additional information on topics including [...] Continue statin therapy. Shortness of breath 01/17/2012 Encounters Date Type Department Care Team Description 11/06/[address] [facility] Rheumatology at [address] [place] [phone] Shelly Mcginnis NP 11/06/[address] [facility] Rheumatology at [address] [place] [address] Dinorah Cesar 10/09/[address] [facility] Rheumatology at [facility] [address] [place] [phone] Shelly Mcginnis NP Lab Results 10/08/[address] [facility] Rheumatology at [facility] [address] [facility] [address] [place] [phone] Shelly Mcginnis NP 10/07/2024 11:33 AM GRANITE CUTTER APPRENTICE - 10/07/2024 11:59 PM GRANITE CUTTER APPRENTICE Hospital Encounter [id number] [place] [address] Discharge Disposition: Discharge to home or self care 10/07/2024 11:00 AM GRANITE CUTTER APPRENTICE Office Visit [facility] Rheumatology at [address] [facility] [address] [place] [phone] Shelly Mcginnis NP Flu vaccine need (Primary Dx); Rheumatoid arthritis involving multiple sites with positive rheumatoid factor (CMS/HCC) (HCC); Encounter for long-term (current) use of high-risk medication; Immunosuppression due to drug therapy ([facility]) 10/07/2024 Telephone [facility] [address] [place] [address] Alannah Mason RPh from Last 3 Months Immunizations Name Administration Dates Next Due Influenza, Quadrivalent, Spl it, Preservative Free, Intramuscular 10/07/2022,09/17/2020,09/03/2019,09/24,08/21/2017,12/01/2016,08/27/2015 Influenza, Trivalent, High D ose, Split, Preservative Free, Intramuscular 10/07/2024 Influenza, Trivalent, IM (MDV) 08/21/2014 Influenza, Unspecified 09/17/2020,2017,12/01/2016,08/27,08/21/2014 Pfizer SARS-CoV-2 Monovalent Vaccination (12+ Yrs) PURPLE 11/15/2021,03/16/2021,02/21/2021 Pfizer Sars-Cov-2 Bivalent V accination (12+ YRS) 10/07/2022 Pneumococcal Conjugate PCV 13 12/01/2016 ZOSTER Recombinant 07/28/2021 Surgical History Surgery Date Site/Laterality Comments OTHER SURGICAL HISTORY right cholesteatoma OTHER SURGICAL HISTORY obesity: gastric bypass MASTOID SURGERY mastoidectomy KNEE ARTHROPLASTY Knee replacement GASTRIC BYPASS 11/27/2010 - 11/26/2011 CHOLECYSTECTOMY OOPHORECTOMY Left OTHER SURGICAL HISTORY 09/27/2022 - 10/26/2022 Thyroid Ultrasound Medical History Medical History Date Comments Hx Other Medical polycystic ovar antonia disease; Comments: [facility] 07/17/2014 - Hx Other Medical sleep apnea; Co mments: [facility] 07/17/2014 - Hyperlipidemia Hyperlipidemia; Comments: [facility] 07/17/2014 - Hx Other Medical obesity; Commen ts: [facility] 07/17/2014 - Covid-19 12/2021 Rheumatoid arthritis (HCC) Kidney disease Family History Medical History Relation Name Comments Coronary artery disease Father Maria Esther nary artery disease; Diabetes Father Diabetes mellit us; Hyperlipidemia Father Obesity Father Stroke Father Hypertension Mother Hypertension; Relation Name Status Comments Father (Age 72) Mother (Age 82) Social History Tobacco Use Types Packs/Day Years [...] on file Legal Sex Female 10:44 AM GRANITE CUTTER APPRENTICE Gender Identity Not on file Sexual Orientation Not on file Obstetrics History Last Filed Vital Signs Vital Sign Reading Time Taken Comments Blood Pressure 120/78 10/07/2024 11:01 AM GRANITE CUTTER APPRENTICE Pulse 59 07/24/2024 3:35 PM CDT Temperature 36.6 ??C (97.8 ??F) 10/07/2024 11:[address] Respiratory Rate 16 07/24/2024 3:35 PM CDT Oxygen Saturation 97% 07/24/2024 3:35 PM CDT Inhaled Oxygen Concentration - - Weight 130.6 kg (288 lb) 10/07/2024 11:01 AM GRANITE CUTTER APPRENTICE Height 165.1 cm (5' 5 ) 10/07/2024 11:01 AM GRANITE CUTTER APPRENTICE Body Mass Index 47.93 10/07/2024 11:01 AM GRANITE CUTTER APPRENTICE Plan of Treatment Health Maintenance Due Date Last Done Comments Albumin Creatinine Ratio, Urine 1958 Colon Cancer Screening-Colonoscopy 1958 Depression Screening 1958 Fall Risk Assessment 1958 Osteoporosis Screening-Bone Density Scan 1958 Dilated Eye Exam 1958 Foot Exam 1958 Hepatitis B Screening 1976 Breast Cancer Screening-Mammogram 04/05/2011 010 Pneumococcal vaccine 65+ (2 of 2 - PPSV23 or PCV20) 01/26/2017 12/01/2016 Hemoglobin A1C 10/06/2019 04/05/2019, 03/30/2018 Lipid Panel 04/05/2020 04/05/2019, 0 02/2018, 04/01/2016, Additional history exists Well Visit 65+ 2023 Covid-19 Vaccine (5 - 2023-2 5 season) 2024 10/07/2022, 11/15/2021, 03/16/2021, Additional history exists eGFR 10/07/2025 10/07/2024, 12/2023, 12/07/2023, Additional history exists DTaP/Tdap/Td Vaccine (2 - Td or Tdap) 08/30/2031 08/30/2021, 10/18/1996 Hepatitis C Screening Completed 06/16/2021 Zoster Vaccine Completed 11/08/2021, 02/2021, 07/28/2021 Influenza Vaccine Completed 10/07/2024, , 11/08/2021, Additional history exists Procedures Procedure Name Priority Date/Time Associated Diagnosis Comments URINALYSIS AND REFLEX TO MICROSCOPIC AND CULTURE Routine 10/07/2024 4:07 PM GRANITE CUTTER APPRENTICE Encounter for long-term (current) use of high-risk medication EGFR Routine 10/07/2024 4:04 PM GRANITE CUTTER APPRENTICE Encounter for long-term (current) use of high-risk medication URINALYSIS, MICROSCOPIC ONLY Routine 10/07/2024 4:04 PM GRANITE CUTTER APPRENTICE Encounter for long-term (current) use of high-risk medication DIFFERENTIAL AUTO Routine 10/07/2024 4:0 4 PM GRANITE CUTTER APPRENTICE Encounter for long-term (current) use of high-risk medication CBC WITH AUTO DIFFERENTIAL Routine 10/07/2024 4:04 PM GRANITE CUTTER APPRENTICE Encounter for long-term (current) use of high-risk medication COMPREHENSIVE METABOLIC PANEL Routine 10/07/2024 4:04 PM GRANITE CUTTER APPRENTICE Encounter for long-term (current) use of high-risk medication CRP (ACUTE PHASE) Routine 10/07/2024 4:0 4 PM GRANITE CUTTER APPRENTICE Rheumatoid arthritis involving multiple sites with positive rheumatoid factor (CMS/HCC) (HCC) ERYTHROCYTE SEDIMENTATION RATE Routine 10/07/2024 4:04 PM GRANITE CUTTER APPRENTICE Rheumatoid arthritis involving multiple sites with positive rheumatoid factor (CMS/HCC) (HCC) MAGNESIUM Routine 10/07/2024 4:04 PM GRANITE CUTTER APPRENTICE Encounter for long-term (current) use of high-risk [...] culture Urine, clean voided (10/07/2024 4:07 PM GRANITE CUTTER APPRENTICE) Color, ur Yellow Yellow Clarity, ur Clear Clear [facility] Specific gravity, ur 1.008 1.003 - 1.030 [facility] pH, urine 6.0 [facility] Comment: Interpretive Data ? Urine pH is affected by diet, medications, systemic acid-base disturbances, and renal tubular function. ??pH may affect urinary stone formation. ??For example, urine pH below 6.0 may help reduce the tendency for calcium phosphate stones and pH greater than 6.0 may reduce the tendency for uric acid stone formation. Source: [facility] Current Interpretive Data was last revised on 2017 Protein, ur ql Negative Negative [facility] Glucose, ur ql 3+(A) Negative [facility] Ketones, ur Negative Negative [facility] Bilirubin, ur Negative Negative [facility] Blood, ur Negative Negative [facility] Urobilinogen, ur <2.0 <2.0 mg/dL [facility] Nitrite, ur Negative Negative [facility] Leukocyte esterase, ur 1+(A) Negative [facility] UA reflex comment Reflex to microscopic UA will be performed. [facility] Urine, clean voided 10/07/2024 4:07 PM GRANITE CUTTER APPRENTICE 10/07/2024 4:07 PM GRANITE CUTTER APPRENTICE us Shelly Mcginnis CRAFT RECRUITER LAB MICROBIOLOGY - GENERAL OR DERABLES Final Result [facility] [address] Department [place] [address] * (ABNORMAL) eGFR (10/07/2024 4:04 PM GRANITE CUTTER APPRENTICE) [facility] eGFR 52(L) >=60 mL/min/1. 73 m2 Comment: [...] last reviewed 2021. Blood 10/07/2024 4:04 PM GRANITE CUTTER APPRENTICE 10/07/2024 4:04 PM GRANITE CUTTER APPRENTICE us Shelly Mcginnis CRAFT RECRUITER LAB BLOOD ORDERABLES Final Re sult [facility] [address] Department [place] [address] * Differential, auto (10/07/2024 4:04 PM GRANITE CUTTER APPRENTICE) Neutrophil abs 3.9 1.5 - 6.5 K/cumm Imm gran abs 0.0 0.0 - 0.1 K/cumm [facility] Lymphocyte abs 2.6 0.8 - 3.3 K/cumm [facility] Monocyte abs 0.8 0.2 - 0.8 K/cumm [facility] Eosinophil abs 0.2 0.0 - 0.5 K/cumm [facility] Basophil abs 0.0 0.0 - 0.1 K/cumm [facility] Neutrophil pct 51.6 % [facility] Comment: Interpretive Data Percent cell count reference ranges are not reported, since discordance with absolute values may lead to misinterpretation of CBC data. Current Interpretive Data was last revised on 2018. Imm gran pct 0.3 % [facility] Comment: Interpretive Data Percent cell count reference ranges are not reported, since discordance with absolute values may lead to misinterpretation of CBC data. Current Interpretive Data was last revised on 2018. Lymphocyte pct 34.3 % [facility] Comment: Interpretive Data Percent cell count reference ranges are not reported, since discordance with absolute values may lead to misinterpretation of CBC data. Current Interpretive Data was last revised on 2018. Monocyte pct 10.3 % [facility] Comment: Interpretive Data Percent cell count reference ranges are not reported, since discordance with absolute values may lead to misinterpretation of CBC data. Current Interpretive Data was last revised on 2018. Eosinophil pct 3.0 % [facility] Comment: Interpretive Data Percent cell count reference ranges are not reported, since discordance with absolute values may lead to misinterpretation of CBC data. Current Interpretive Data was last revised on 2018. Basophil pct 0.5 % [facility] Comment: Interpretive Data Percent cell count reference ranges are not reported, since discordance with absolute values may lead to misinterpretation of CBC data. Current Interpretive Data was last revised on 2018. Blood 10/07/2024 4:04 PM GRANITE CUTTER APPRENTICE 10/07/2024 4:04 PM GRANITE CUTTER APPRENTICE us Shelly Mcginnis CRAFT RECRUITER LAB BLOOD ORDERABLES Final Re sult [facility] [address] Department of Laboratories [place], [place] [id number] * (ABNORMAL) CBC with auto differential (10/07/2024 4:04 PM GRANITE CUTTER APPRENTICE) WBC 7.6 3.8 - 9.9 K/cumm Hgb 13.9 11.9 - 15.5 g/dL [facility] Hct 42.4 35.6 - 45.5 % [facility] Plt 196 150 - 400 K/cumm [facility] MPV 9.4 9.1 - 12.3 fL [facility] RBC 4.53 3.90 - 5.20 M/cumm [facility] MCV 93.6 81.3 - 96.4 fL [facility] MCH 30.7 27.1 - 33.3 pg [facility] MCHC 32.8 32.3 - 35.7 g/dL [facility] RDW CV 14.1 11.1 - 14.9 % [facility] RDW SD 48.6(H) 35.7 - 48.1 fL [facility] NRBC abs 0.00 0.00 - 0.01 K/cumm [facility] Blood 10/07/2024 4:04 PM GRANITE CUTTER APPRENTICE 10/07/2024 4:04 PM GRANITE CUTTER APPRENTICE Shelly Mcginnis CRAFT RECRUITER LAB BLOOD ORDERABLES Final Re sult Performing Organization Address [facility] de Phone Number [facility] [address] Department [employer] [place], [place] [id number] * Urinalysis, microscopic only (10/07/2024 4:04 PM GRANITE CUTTER APPRENTICE) WBC, ur 0-5 0 - 5 /HPF RBC, ur 0-2 0 - 2 /HPF [facility] Epithelial cells, squamous, ur 1-5 0 - 5 /HPF [facility] Culture Reflex Comment Reflex conditions for urine culture (WBC >10) not met. [facility] Urine, clean voided 10/07/2024 4:04 PM GRANITE CUTTER APPRENTICE 10/07/2024 4:04 PM GRANITE CUTTER APPRENTICE Shelly Mcginnis CRAFT RECRUITER LAB URINE ORDERABLES Final Re sult Performing Organization Address [facility] Co de Phone Number [facility] [address] Department [employer] [place] [address] * Erythrocyte sedimentation rate (10/07/2024 4:04 PM GRANITE CUTTER APPRENTICE) Erythrocyte sedimentation rate 21 1 - 30 mm/hr Blood 10/07/2024 4:04 PM GRANITE CUTTER APPRENTICE 10/07/2024 4:04 PM GRANITE CUTTER APPRENTICE Shelly Mcginnis CRAFT RECRUITER LAB BLOOD ORDERABLES Final Re sult Performing Organization Address [facility] Co de Phone Number [facility] [address] [facility] [employer] [place] [address] * CRP (acute phase) (10/07/2024 4:04 PM GRANITE CUTTER APPRENTICE) [facility] CRP <3.0 <=10.0 mg/L Blood 10/07/2024 4:04 PM GRANITE CUTTER APPRENTICE 10/07/2024 4:04 PM GRANITE CUTTER APPRENTICE Shelly Mcginnis CRAFT RECRUITER LAB BLOOD ORDERABLES Final Re sult Performing Organization Address [facility] Co de Phone Number [facility] [address] [facility] [employer] [place] [address] * Magnesium (10/07/2024 4:04 PM GRANITE CUTTER APPRENTICE) [facility] Magnesium 2.0 1.4 - 2.5 mg/dL Blood 10/07/2024 4:04 PM GRANITE CUTTER APPRENTICE 10/07/2024 4:04 PM GRANITE CUTTER APPRENTICE Shelly Mcginnis CRAFT RECRUITER LAB BLOOD ORDERABLES Final Re sult Performing Organization Address [facility] Co de Phone Number [facility] [address] [facility] [employer] [place] [address] * (ABNORMAL) Comprehensive metabolic panel (10/07/2024 4:04 PM GRANITE CUTTER APPRENTICE) [facility] Sodium 138 135 - 145 mmol/L Potassium, pl 3.3 3.3 - 4.9 mmol/L [facility] Chloride 101 97 - 110 mmol/L [facility] CO2 25 22 - 32 mmol/L [facility] Anion gap 12 2 - 15 mmol/L [facility] BUN 16 6 - 25 mg/dL [facility] Creatinine 1.16(H) 0.60 - 1.10 mg/dL [facility] Glucose 107 70 - 199 mg/dL [facility] Comment: Interpretive Data Fasting glucose >/= 126 [...] 2022. Calcium 8.8 8.5 - 10.3 mg/dL [facility] Bilirubin, total 0.6 0.1 - 1.2 mg/dL [facility] Protein, pl 7.3 6.5 - 8.5 g/dL [facility] Albumin 4.0 3.5 - 5.0 g/dL [facility] Alk phos 72 40 - 130 Units/L [facility] ALT 28 7 - 45 Units/L [facility] AST 21 10 - 45 Units/L [facility] Blood 10/07/2024 4:04 PM GRANITE CUTTER APPRENTICE 10/07/2024 4:04 PM GRANITE CUTTER APPRENTICE us Shelly Mcginnis NP LAB BLOOD ORDERABLES Final Re sult [facility] [address] Department [place] [address] * Hepatitis C antibody (06/16/2021 2:53 PM CDT) Hep C Ab Nonreactive Nonreactive [facility] Comment: Interpretive Data Nonreactive: Antibodies to HCV [...] L ORDERABLES Final Result Performing Organization Address City/[facility] Co de Phone Number [facility] [address] Department [place] [address] * (ABNORMAL) Hemoglobin A1c (04/05/2019 12:54 PM CDT) Hgb A1C 7.4(H) 4.0 - 5.6 % [facility] Estimated Average Glucose 166 mg/dL [facility] Comment: The ADA recommends reporting an estimated Average Glucose (eAG) with all Hemoglobin A1c results using the equation derived from a study of 507 normal and diabetic adults. ??Minority populations were underrepresented and children were not included. ?? (Diabetes Care 31:7978-1769, 2008). ??The eAG is not equivalent to a fasting glucose. Blood specimen (specimen) 04/05/2019 12:54 PM CDT 04/05/2019 1:11 PM CDT Narrative [facility] - 04/05/2019 4:40 PM CDT Sourav Bolanos NP LAB BLOOD ORDERABLES Final Result Performing Organization Address [facility] de Phone Number [facility] Department [place] [address] * (ABNORMAL) Lipid panel (04/05/2019 12:54 PM CDT) Pathologist [facility] Cholesterol 114 30 - 199 mg/dL [facility] Comment: Interpretive Data Ages < or = [...] revised on 2018. Triglycerides 151(H) <=149 mg/dL [facility] Comment: Interpretive Data Ages < or = [...] revised on 2018. HDL 39(L) >=40 mg/dL [facility] Comment: Interpretive Data Ages < or = [...] on 2018. LDL, calculated 45 <=129 mg/dL [facility] Comment: Interpretive Data Ages < or = [...] revised on 2018. Non-HDL Cholesterol 75 mg/dL [facility] Comment: Interpretive Data Ages < or = [...] last revised on 2018. Chol/HDL ratio 3 [facility] Blood specimen (specimen) 04/05/2019 12:54 PM CDT 04/05/2019 1:11 PM CDT Narrative [facility] - 04/05/2019 1:55 PM CDT us Sourav Bolanos CRAFT RECRUITER LAB BLOOD ORDERABLES Final Result [facility] [place] [address] from Last 3 Months or Most Recently Relevant to Health Maintenance Insurance [facility] CLAIMS MEDICARE [employer] [facility] MEDICARE Address: [address] [address] [place] [address] MEDICARE [employer] [facility] MEDICARE Address: [address] [address] [place] [address] [facility] [employer] Advance Directives For more information, please contact: [phone] Documents on File Type Date Recorded Patient Senior Center Manager Expl anation ADVANCE DIRECTIVE 07/05/2018 12:00 AM POWER OF GEOLOGIST FINANCIAL/MEDICAL Care Teams Digital Forensic Examiner Relationship Specialty Start Date End Date Gisela Bro MD PCP - General Family Medicine 02/27/24
--- OUTSIDE RECORDS SUMMARY | 2024-12-24 09:20 | XMS_ITS | Encounter Summary ---
Author Organization [facility] Care Team Providers Care Company Dancer Name Role Phone Tomi Gomez MD Primary Care Provider [phone] Sydni Spencer MD Primary Care Provider + [phone] Unknown, Notinfile Primary Care Provider Unavail able Merrill Mederos MD Primary Care Provider [phone] Gisela Bro MD Primary Care Provider + [phone] Encounter Details Date Type Department Care Team (Latest Contact Info) Description 07/05/2018 Orders Only [facility] ProviderYoanna MD [address] [place], [place] [id number] Social History Tobacco Use Types Packs/Day Years Used Date Smoking Tobacco: Former Smokeless Tobacco: Never Comments:Smoking History Pac ks/day: 2 Cigarettes Alcohol Use Standard Drinks/Week Comments No 0 (1 standard drink = 0.6 oz pur e alcohol) Comments Unknown Sex and Gender Information Value Date Recorded Sex Assigned at Not on file Legal Sex Female 10:44 AM BINDERY CHIEF Gender Identity Not on file Sexual Orientation Not on file documented as of this encounter Plan of Treatment Not on file documented as of this encounter Procedures Procedure Name Priority Date/Time Associated Diagnosis Comments PROCEDURE - RESULT 07/05/2018 12 :00 AM CDT documented in this encounter Results * PROCEDURE - RESULT (07/05/2018 12:00 AM CDT) Narrative 07/05/2018 12:00 AM CDT Ordered by an unspecified provider. us Historical Provider Final Res ult documented in this encounter Visit Diagnoses Not on filedocumented in this encounter Additional Health Concerns Infection Onset Date Last Indicated Resolved Time MRSA Comment:generated from [facility] 01/15/2013 01/15/2013 07/14/2021 5: 00 AM CDT documented as of this encounter Care Teams Company Dancer Relationship Specialty Start Date End Date Tomi Gomez MD PCP - General 03/30/18 07/09/19 Sydni Spencer MD [address] [place] [address] PCP - General 07/10/19 06/28/22 Unknown, Notinfile PCP - General 06/29/22 08/28/22 Merrill Mederos MD PCP - General Cloud Developer 08/29/22 02/26/24 Gisela Bro MD PCP - General Family Medicine 02/27/24 documented as of this encounter
[2024-12-24 10:19] LABS: Erythrocyte Sedimentation Rate 21 mm/hr (0-20)
== END 2025-03-24 23:59 | disposition home or self-care (01) ==
LOC: ANHLAB 09:00
PROVIDERS: PCP Family Medicine; Visit Provider Internal Medicine Rheumatology
DX: M05.79 Rheumatoid arthritis with rheumatoid factor of multiple sites without organ or systems involvement (principal)
CPT/HCPCS: 36415; 85652

== ENCOUNTER 2025-01-30 14:02 | Emergency (ER) | payer MEDICARE, OTHER, SELFPAY ==
--- NOTE | ~2025-01-30 | CT_ITS ---
CT pelvis w con Ordering provider: Stephanie Ortiz PA-C History: . R groin abscess . Comparison: March 27, 2024 Technique: CT pelvis without oral and IV contrast. . Automated exposure control and iterative recons truction technique were employed. The dose-length product was 1244.05 mGy-cm. 100 mL Omnipaque 350 wa s given IV. Findings: BONES: No pelvic fracture or hip dislocation. Age appropriate degenerative changes of the visualized lower lumbar spine. The hip joints shows osteoarthritic changes. Bilateral sacroiliitis. Pubic symphy sitis. SUPERFICIAL SOFT TISSUES: Fat stranding seen in the right medial thigh and vulva with thickeni ng of the skin medially. Possibility of abscess seen medially cannot be excluded and this area measur es 6.3 x 1.5 cm. Clinical correlation advised. AREA OF COLLECTION ALSO SEEN POSTERIORLY MEASURING 1.9 X 1.6 x 2.7 cm. Right inguinal lymph nodes are seen with the largest measures 3.4 x 1.8 cm. Air milly bles seen in the tissues and anaerobic infection should be considered. PELVIC ORGANS: The bladder is normal. Stone seen in the left kidney lower pole with mild left hydronephrotic changes. Stone in the left low er ureter is also seen measuring 6 mm. VISUALIZED BOWEL AND MESENTERY: Postoperative changes in the bowel in the left side of the abdomen. N ormal. No free air or free fluid. No lymphadenopathy. RETROPERITONEUM: Mild atheromatous disease. IMPRESSION: Fat stranding in the medial upper thigh and in the vulva suggestive of infection with focal area of c ollection. Subcutaneous edema versus collection is also seen in the right side vulva medially. Inguin al lymphadenopathy in the right side. Left kidney stone in the lower pole. Stone in the left lower ureter with hydronephrotic changes. Reviewed, dictated and finalized at location A. KTOP PAVER OPERATOR IMPRESSION: Fat stranding in the medial upper thigh and in the vulva suggestive of infectio n with focal area of collection. Subcutaneous edema versus collection is also s een in the right side vulva medially. Inguinal lymphadenopathy in the right jackelin e. Left kidney stone in the lower pole. Stone in the left lower ureter with hydron ephrotic changes.
[2025-01-30 14:16] VITALS: BP 124/51; PULSE 80; RESP 18; TEMP 36.7; O2SAT 99
--- NOTE | 2025-01-30 14:17 | ED.GENADULT ---
HPI - General Adult General Chief complaint: Fever Stated complaint: fever,chills Time Seen by Provider: 01/30/25 14:18 Focused HPI: Patient is a 64 y/o female, with PMH of DM, who presents to the ED with c/o abscess to her R groin. Patient reports she began having fevers, chills, diaphoresis since Monday. Noticed an abscessed area to her right groin on Monday. She placed some PRID on the abscess and states it began draining on Monday, but has since increased in size, tenderness, firmness and is no longer draining. Fevers have persisted, states Tmax 101F. States her BG have been under 120. Hx of similar previous abscesses. Hx of PCOS. GENERAL: Mildly ill and diaphoretic-appearing, morbidly obese with BMI of 43.6, and in no acute distress. HEAD: Normocephalic, atraumatic. CHEST: Clear to auscultation. ?No respiratory distress. HEART: Regular rate and rhythm.? NEURO: ?Alert and oriented x3. Patient screened in triage and initial orders placed.? ?Additional care and disposition to be based upon?diagnostic testing and treatment. Source: patient Mode of arrival: ambulatory Limitations: no limitations Related Data Home Medications ?Medication ?Instructions ?Recorded ?Confirmed ?Last Taken ?Type escitalopram oxalate 10 mg tablet 10 mg PO DAILY 10/04/19 10/30/24 08/10/22 History folic acid 1 mg tablet 1 mg PO DAILY 10/04/19 10/30/24 08/10/22 History multivitamin 1 tablet PO DAILY 10/04/19 10/30/24 08/10/22 History ascorbic acid (vitamin C) 1,000 mg 500 mg PO DAILY 11/22/23 10/30/24 Unknown History tablet (Vitamin C) cholecalciferol (vitamin D3) 125 125 mcg PO DAILY 11/22/23 10/30/24 Unknown History mcg (5,000 unit) capsule mecobalamin (vitamin B12) 500 mcg 500 mcg PO DAILY 01/25/24 10/30/24 Unknown History chewable tablet adalimumab 40 mg/0.4 mL See Rx Instructions subcut .COMPLEX 05/06/24 10/30/24 Unknown History subcutaneous pen kit (Humira(CF) Pen) biotin 2,500 mcg capsule 5 mg PO DAILY 05/06/24 10/30/24 Unknown History leflunomide 10 mg tablet 10 mg PO DAILY 10/29/24 10/30/24 Unknown History Allergies Allergy/AdvReac Type Severity Reaction Status Date / Time adhesive Allergy Intermediate SKIN Verified 01/30/25 14:03 BREAKS OUT [facility] Past Medical History Medical History Anxiety CKD (chronic kidney disease) CVA (cerebral vascular accident) Diabetes mellitus GERD (gastroesophageal reflux disease) Hiatal hernia HLD (hyperlipidemia) HTN (hypertension) Rheumatoid arthritis Sleep apnea with use of continuous positive airway pressure (CPAP) Sore throat TIA (transient ischemic attack) Surgical History Surgical History H/O cardiac catheterization H/O oophorectomy Lt History of carpal tunnel surgery History of cholecystectomy History of ear surgery Rt x2 History of esophagogastroduodenoscopy (EGD) 02/26/24 History of gastric bypass History of knee replacement Rt Family History Family History Mother Family history of osteoporosis Hypertension Father Family history of diabetes mellitus in first degree relative Family history of coronary artery disease Heart disease Grandparent Diabetes mellitus Sibling B-cell lymphoma Diabetes mellitus Hypertension Cerebrovascular accident Social History Social History Smoking status: Former smoker Tobacco type: cigarettes Alcohol intake: never Substance use: never Substance use type: does not use Do You Feel Safe in your Home?: Yes Lack of Transportation: No Lack of Food: Never True Current Housing: I Have Housing Concerned About Future Housing: No Difficulty Paying Gas/Electric Bills: No Difficulty Paying for Meds: No Currently Unemployed: YES Education: High School Diploma/GED Difficulty w/ Childcare or Family Care: No Living arrangements: alone Occupation/Education: retired Gender identity (if verbalized by the patient): Female Spiritual care concerns: No Agree to blood products: Yes Course Vital Signs Vital signs: Vital Signs Temperature 98.1 F 01/30/25 14:16 Pulse Rate 80 01/30/25 14:16 Respiratory Rate 18 01/30/25 14:16 Blood Pressure 124/51 L 01/30/25 14:16 Pulse Oximetry 99 01/30/25 14:16 Oxygen Delivery Room Air 01/30/25 14:16 Temperature 98.3 F 01/30/25 17:23 Pulse Rate 71 01/30/25 22:13 Respiratory Rate 20 01/30/25 22:13 Blood Pressure 106/40 L 01/30/25 22:13 Pulse Oximetry 98 01/30/25 21:45 Oxygen Delivery Room Air 01/30/25 14:16 Medical Decision Making MDM Narrative Medical decision making narrative: MSE by KATHY in triage Vital Signs Vital Signs: Vital Signs Temperature 98.1 F 01/30/25 14:16 Pulse Rate 80 01/30/25 14:16 Respiratory Rate 18 01/30/25 14:16 Blood Pressure 124/51 L 01/30/25 14:16 Pulse Oximetry 99 01/30/25 14:16 Oxygen Delivery Room Air 01/30/25 14:16 Temperature 98.3 F 01/30/25 17:23 Pulse Rate 71 01/30/25 22:13 Respiratory Rate 20 01/30/25 22:13 Blood Pressure 106/40 L 01/30/25 22:13 Pulse Oximetry 98 01/30/25 21:45 Oxygen Delivery Room Air 01/30/25 14:16 Lab Data 01/30/25 17:19 01/30/25 17:19 Labs: Lab Results 01/30/25 01/30/25 01/30/25 Range/Units 17:19 18:57 19:37 WBC 17.7 H (4.5-10.0) K/mm3 RBC 4.76 (4.2-5.4) M/mm3 Hgb 14.1 (12.0-15.0) g/dL Hct 42.0 (37.0-47.0) % MCV 88.2 (80-100) fl MCH 29.6 (26-34) pg MCHC 33.6 (32-36) g/dl RDW 13.7 (11.5-14.5) % Plt Count 200 (150-375) k/mm3 MPV 8.7 (7.4-10.4) fl Immature Gran % (Auto) 0.6 H (0-0.5) % Neut % (Auto) 76.6 H (45.5-73.1) % Lymph % (Auto) 11.3 L (18.3-44.2) % [place] % (Auto) 10.3 H (2.6-8.5) % Eos % (Auto) 0.6 (0-4.4) % Baso % (Auto) 0.6 (0.2-1.2) % Lymph # (Auto) 2.00 (0.9-3.2) K/mm3 [place] # (Auto) 1.8 H (0.1-0.6) K/mm3 Eos # (Auto) 0.1 (0-0.3) K/mm3 Baso # (Auto) 0.1 (0.0-0.1) K/mm3 Abs Immat Gran (auto) 0.11 H (0.00-0.031) K/mm3 Absolute Neuts (auto) 13.5 H (1.3-6.7) K/mm3 Absolute Nucleated RBC 0.000 (0.0-0.012) K/mm3 Nucleated RBC % 0.0 (0.0-0.2) % Sodium 127 L (137-145) mmol/L Potassium 3.0 L (3.4-5.0) mmol/L Chloride 89 L (98-107) mmol/L Carbon Dioxide 26 (22-30) mmol/L Anion Gap 12 (4-12) mmol/L BUN 29 H D (7-17) mg/dL Creatinine 1.24 H (0.7-1.0) mg/dL Estim Creat Clear Calc 53 ml/min Estimated GFR 43 L (59 - ) Glucose 114 H (65-110) mg/dL Lactic Acid Cancelled Calcium 8.6 (8.4-10.2) mg/dL Total Bilirubin 1.2 (0.2-1.3) mg/dL AST 27 (14-36) U/L ALT 22 (6-35) U/L Alkaline Phosphatase 91 (38-126) U/L Total Protein 7.0 (6.3-8.2) g/dL Albumin 3.6 (3.5-5.1) g/dL Influenza A (RT-PCR) Negative (Negative) Influenza B (RT-PCR) Negative (Negative) SARS-CoV-2 RNA (RT-PCR) Negative (Negative) Discharge Plan Discharge Clinical Impression: Necrotizing fasciitis Patient Disposition: Acute Care Hospital Condition: Critical Patient Language: Frisian Prescriptions: No Action folic acid 1 mg Tablet 1 mg PO DAILY escitalopram oxalate 10 mg Tablet 10 mg PO DAILY multivitamin Tablet 1 tablet PO DAILY ascorbic acid (vitamin C) [Vitamin C] 1,000 mg tablet 500 mg PO DAILY cholecalciferol (vitamin D3) 125 mcg (5,000 unit) capsule 125 mcg PO DAILY biotin 2,500 mcg capsule 5 mg PO DAILY Humira(CF) Pen 40 mg/0.4 mL pen injector kit See Rx Instructions subcut .COMPLEX Rx Instructions: inject one - 40 mg/0.4 mL pen every 2 weeks subcut leflunomide 10 mg tablet 10 mg PO DAILY mecobalamin (vitamin B12) 500 mcg tablet,chewable 500 mcg PO DAILY benzonatate 200 mg capsule 200 mg PO TID PRN (Reason: cough) Qty: 30 0RF omeprazole 40 mg capsule,delayed release(DR/EC) See Rx Instructions .ROUTE .COMPLEX Qty: 90 1RF Dose Instruction: TAKE 1 CAPSULE BY MOUTH EVERY DAY Rx Instructions: TAKE 1 CAPSULE BY MOUTH EVERY DAY aspirin [Enteric Coated Aspirin] 81 mg tablet,delayed release (DR/EC) 81 mg PO DAILY Qty: 90 1RF atorvastatin 20 mg tablet 20 mg PO DAILY Qty: 90 3RF chlorthalidone 25 mg tablet 25 mg PO DAILY Qty: 90 3RF Trulicity 1.5 mg/0.5 mL pen injector 1.5 mg subcut WEEKLY Qty: 6 1RF fosinopril 40 mg tablet 40 mg PO DAILY Qty: 90 3RF Jardiance 10 mg tablet 10 mg PO DAILY Qty: 30 0RF nebivolol 10 mg tablet 10 mg PO TID Qty: 1 0RF omega 2-vml-wbb-fish oil [Fish Oil] 300-1,000 mg capsule 1 cap PO DAILY Qty: 90 1RF Follow-up/Referrals: Gisela Bro MD [Primary Care Provider] -
--- OUTSIDE RECORDS SUMMARY | 2025-01-30 15:19 | XMS_ITS | Clinical Summary ---
Author Organization [facility] Address [address] [place] [address] Phone Care Team Providers Care Distributor Sales Consultant Name Role Phone Gisela Bro MD Primary Care Provider [phone] Allergies No known active allergies Medications atorvastatin (LIPITOR) 20 mg tablet Take 20 mg by mouth daily. 02/16/2022 Active chlorthalidone (HYGROTON) 25 mg tablet Take 25 mg by mouth daily. 02/16/2022 Active cholecalciferol , Vitamin D3, 125 mcg (5,000 unit) Capsule Take 5,000 Units by mouth daily. 01/28/2022 Active nebivoloL (BYSTOLIC) 10 mg Tablet Take 10 mg by mouth 3 times daily. 11/16/2021 Active fish oil-omega-3 fatty acids (Fish OiL) 340-1,000 mg Capsule Take 1,000 Capsules by mouth. 10/14/2022 Active omeprazole (PriLOSEC) 40 mg Capsule, Delayed Release(E.C.) Take 40 mg by mouth daily. 02/20/2024 Active potassium CHLORIDE (Klor-Con) 20 mEq Packet Take 20 mEq by mouth daily. 04/17/2024 Active ascorbic acid, vitamin C, (VITAMIN C) 1,000 mg Tablet Take 1,000 mg by mouth daily. Active mecobalamin, vitamin B12, 1,000 mcg Tablet, Chewable Take 500 mcg by mouth daily. Active Cinnamon Bark 500 mg Capsule Take 500 mg by mouth daily. Active Trulicity 1.5 mg/0.5 mL injection 10/18/2024 Active fluoride, sodium, (PreviDent 5000 Plus) 1.1 % Cream USE DIRECTED TWICE DAILY WHILE BRUSHING 10/06/2022 Active Active Problems Patient Care Coordination No te Formatting of this note migh t be different from the original. Primary Care: Tomi Gomez MD Referring Provider: Tomi Gomez [address] [place] [address] Other: Nick Hollinsff Problem Noted Date Diagnosed Date Breast lump 04/05/2010 PCOS (polycystic ovarian syndrome) HTN (hypertension) Acid reflux Diabetes Sleep apnea Restless leg Encounters Date Type Department Care Team Description 01/28/2025 External Device Data [facility] Provider, Abstract 01/15/2025 External Device Data [facility] Provider, Abstract 01/14/2025 External Device Data [facility] Provider, Abstract 12/17/2024 External Device Data [facility] Provider, Abstract 12/10/2024 External Device Data [facility] Provider, Abstract 12/03/2024 External Device Data [facility] Provider, Abstract 11/05/2024 2:45 PM VESSEL ENGINEER Office Visit [facility] Oncology and [facility] [address] [place] [address] Imer Astorga MD Chronic anemia (Primary Dx) 11/05/2024 Orders Only [facility] Oncology and [facility] [address] [place] [address] Imer Astorga MD from Last 3 Months Family History Medical [...] uit: 05/22/1994 Tobacco Cessation:Counseling Given: Not Answered Comments:1989 Alcohol Use Standard Drinks/Week Comments Not Currently 0 (1 standard drink = 0.6 oz pur e alcohol) rarely Comments Unknown Sex and Gender Information Value Date Recorded Sex Assigned at Not on file Legal Sex Female 5:53 AM VESSEL ENGINEER Gender Identity Not on file Sexual Orientation Not on file Last Filed Vital Signs Vital Sign Reading Time Taken Comments Blood Pressure 102/54 11/05/2024 2:44 PM VESSEL ENGINEER Pulse 60 11/05/2024 2:44 PM VESSEL ENGINEER Temperature 36.4 C (97.5 F) 11/05/2024 2:44 PM VESSEL ENGINEER Respiratory Rate 18 11/05/2024 2:44 PM VESSEL ENGINEER Oxygen Saturation 97% 11/05/2024 2:44 PM VESSEL ENGINEER Inhaled Oxygen Concentration - - Weight 128.8 kg (284 lb) 11/05/2024 2:44 PM VESSEL ENGINEER Height 170.2 cm (5' 7 ) 05/22/2024 [...] 12/29/2008, 07/26/2007, Additional history exists PNEUMOCOCCAL VACCINE 50+ YEA RS (2 of 2 - PPSV23) [...] RECEPTOR TFR SOLUBLE Routine 11/01/2024 2:35 PM VESSEL ENGINEER MAMMO SCREEN BILAT W OR WO CAD Routine 04/05/2010 from Last 3 Months or Most Recently Relevant to Health Maintenance Results * TRANSFERRIN RECEPTOR TFR SOLUBLE (11/01/2024 2:35 PM VESSEL ENGINEER) Blood us Imer Astorga MD CHEMISTRY ORDERABLES Final Resu lt * MAMMO DIGITAL SCREEN BILAT (04/05/2010) Anatomical Region Laterality Modality Breast Bilateral Other us Milli Schultz MD MAMMO ORDERABLES Final Resul t from Last 3 Months or Most Recently Relevant to Health Maintenance Insurance [facility] BL[employer] BLUE PPO [facility] PPO [facility] [id number] [employer] Care Teams Distributor Sales Consultant Relationship Specialty Start Date End Date Gisela Bro MD [address] [place] [phone] PCP - General Family Practice 11/05/24
--- OUTSIDE RECORDS SUMMARY | 2025-01-30 15:19 | XMS_ITS | Encounter Summary ---
Author Organization [facility] Address [address] [place] [address] Care Team Providers Care Food And Beverage Service Manager Name Role Phone Gisela Bro MD Primary Care Provider [phone] Encounter Details Date Type Department Care Team (Late st Contact Info) Description 01/28/2025 External Device Data [facility] Provider, Abstract NO ADDRESS ON FILE Social History Tobacco Use Types Packs/Day Years Used Date Smoking Tobacco: Former Cigarettes 1 10 Q uit: 05/22/1994 Comments:1989 Alcohol Use Standard Drinks/Week Comments Not Currently 0 (1 standard drink = 0.6 oz pur e alcohol) rarely Comments Unknown Sex and Gender Information Value Date Recorded Sex Assigned at Not on file Legal Sex Female 5:53 AM SUSTAINABLE SYSTEMS ANALYST Gender Identity Not on file Sexual Orientation Not on file documented as of this encounter Plan of Treatment Not on file documented as of this encounter Visit Diagnoses Not on filedocumented in this encounter Care Teams Food And Beverage Service Manager Relationship Specialty Start Date End Date Gisela Bro MD [address] [place] [phone] PCP - General Family Practice 11/05/24 documented as of this encounter
--- OUTSIDE RECORDS SUMMARY | 2025-01-30 15:19 | XMS_ITS | Referral Summary ---
Author Organization [facility] Address [address] [place] [address] Care Team Providers Care Pan Greaser Name Role Phone Gisela Bro MD Primary Care Provider [phone] Encounters Date Type Department Care Team Description 01/03/2025 12:45 PM LIBRARY ACQUISITIONS TECHNICIAN - 01/03/2025 11:59 PM LIBRARY ACQUISITIONS TECHNICIAN Hospital Encounter [address] [address] Discharge Disposition: Discharge to home or self care 01/03/2025 12:00 PM LIBRARY ACQUISITIONS TECHNICIAN Office Visit [facility] Rheumatology at [address] [address] Anjali Mckeon MD Rheumatoid arthritis involving multiple sites with positive rheumatoid factor (HCC) (Primary Dx); Encounter for long-term (current) use of high-risk medication 12/26/[address] [facility] Medical [facility] Rheumatology at [address] [place] [phone] Anjali Mckeon MD Lab Results 11/06/[address] [facility] Rheumatology at [address] [address] Shelly Mcginnis NP 11/06/[address] [facility] Rheumatology at [facility] [address] [facility] [address] [place] [address] Dinorah Cesar from Last 3 Months Allergies Active Allergy [...] (fourteen) days 2 kit 5 4 Active Jardiance 10 mg tablet 5 Active Active Problems Problem Noted Date Diagnosed Date Immunosuppression due to drug therapy 10/07/2024 Assessment & Plan (10/07/2024 11:29 AM LIBRARY ACQUISITIONS TECHNICIAN): Encourage routine vaccinations. Follow up with PCP. [...] 07/24/2023 Assessment & Plan (10/07/2024 11:29 AM LIBRARY ACQUISITIONS TECHNICIAN): Long-term use of high-risk medication requiring regular monitoring. Labs ordered, no s/s of med tox or infection. Encouraged to work with PCP to make sure all recommended cancer screens and vaccinations are complete. Avoid live-vaccines unless reviewed with saas architect first. Assessment & Plan (12/07/2023 10:51 AM LIBRARY ACQUISITIONS TECHNICIAN): Long-term use of high-risk medication requiring regular monitoring. Labs ordered, no s/s of med tox or infection. Encouraged to work with PCP to make sure all recommended cancer screens and vaccinations are complete. Avoid live-vaccines unless reviewed with saas architect first. Assessment & Plan (07/24/2023 12:36 PM CDT): Long-term use of high-risk medication requiring regular monitoring. Labs ordered, no s/s of med tox or infection. Encouraged to work with PCP to make sure all recommended cancer screens and vaccinations are complete. Avoid live-vaccines unless reviewed with saas architect first. Discussed importance of avoiding repeated skin [...] ng multiple sites with positive rheumatoid factor 06/22/2015 Overview (03/02/2017): Rheumatoid arthritis Assessment & Plan (10/07/2024 11:29 AM LIBRARY ACQUISITIONS TECHNICIAN): Stable on leflunomide and humira. Continue same. Labs today. Follow up in 6 months and prn. Assessment & Plan (12/07/2023 12:00 PM LIBRARY ACQUISITIONS TECHNICIAN): Flare in hand symptoms while off humira [...] w/r/t gut microbiome. Referred to ADA and [facility] websites for additional information on topics including glycemic index/carbohydrate choices, protein sources. Recommend dietitian follow up -- will see if PCP can refer closer to home. Consider change to Reim if covered by her insurance. Hypertension 07/17/2014 [...] statin therapy. Shortness of breath 01/17/2012 Immunizations Immunization Administration Dates Next Due Influenza, Quadrivalent, Spl it, Preservative Free, Intramuscular 10/07/2022,11/08/2021,09/17/2020,09/03,09/24/2018,08/21/2017,12/01/2016 ,08/27/2015 Influenza, Split 11/07/2006,10/27/2005, 4 Influenza, Trivalent, High D ose, Split, Preservative Free, Intramuscular 10/07/2024 Influenza, Trivalent, IM (MDV) 08/21/2014 Influenza, Unspecified 09/17/2020,2017,12/01/2016,08/27,08/21/2014 Influenza, Whole 09/30/2003, 2,12/07/2000,10/12 Pfizer SARS-CoV-2 Monovalent Vaccination (12+ Yrs) PURPLE 11/15/2021,03/16/2021,02/21/2021 Pfizer Sars-Cov-2 Bivalent V accination (12+ YRS) 10/07/2022 Pneumococcal Conjugate PCV 13 12/01/2016 Td, adsorbed 10/18/1996 Tdap 08/30/2021 ZOSTER Recombinant 11/08/2021,08/30/2021, 021 Social History Tobacco Use Types Packs/Day Years Used Date Smoking Tobacco: Former Smokeless Tobacco: Never Tobacco Cessation:Counseling Given: Not Answered Comments:Smoking History Packs/day: 2 Cigarettes Alcohol Use Standard Drinks/Week Comments No 0 (1 standard drink = 0.6 oz pur e alcohol) AUDIT-C Answer Date Recorded Q1: How often do you have a drink containing alcohol? Never 01/03/2025 Q2: How many drinks containi ng alcohol do you have on a typical day when you are drinking? Patient does not drink Q3: How often do you have si x or more drinks on one occasion? Never 01/03/2025 Comments No Sex and Gender Information Value Date Recorded Sex Assigned at Not on file Legal Sex Female 10:44 AM LIBRARY ACQUISITIONS TECHNICIAN Gender Identity Not on file Sexual Orientation Not on file Last Filed Vital Signs Vital Sign Reading Time Taken Comments Blood Pressure 112/60 01/03/2025 11:36 AM LIBRARY ACQUISITIONS TECHNICIAN Pulse 60 01/03/2025 11:36 AM LIBRARY ACQUISITIONS TECHNICIAN Temperature 36.3 C (97.4 F) 01/03/2025 11:36 AM LIBRARY ACQUISITIONS TECHNICIAN Respiratory Rate 16 07/24/2024 3:35 PM CDT Oxygen Saturation 97% 01/03/2025 11: 36 AM LIBRARY ACQUISITIONS TECHNICIAN Inhaled Oxygen Concentration - - Weight 126.1 kg (277 lb 14.4 oz) 2024 11:36 AM LIBRARY ACQUISITIONS TECHNICIAN Height 165.1 cm (5' 5 ) 01/03/2025 11:3 6 AM LIBRARY ACQUISITIONS TECHNICIAN Body Mass Index 46.24 01/03/2025 11:36 AM LIBRARY ACQUISITIONS TECHNICIAN Plan of Treatment Not on file Procedures Procedure Name Priority Date/Time Associated Diagnosis Comments EGFR Routine 01/03/2025 12:41 PM LIBRARY ACQUISITIONS TECHNICIAN Encounter for long-term (current) use of high-risk medication COMPREHENSIVE METABOLIC PANEL Routine 01/03/2025 12:41 PM LIBRARY ACQUISITIONS TECHNICIAN Encounter for long-term (current) use of high-risk medication CBC WITHOUT DIFFERENTIAL Routine 01/03/2025 12:41 PM LIBRARY ACQUISITIONS TECHNICIAN Encounter for long-term (current) use of high-risk medication ERYTHROCYTE SEDIMENTATION RATE Routine 01/03/2025 12:41 PM LIBRARY ACQUISITIONS TECHNICIAN Rheumatoid arthritis involving multiple sites with positive rheumatoid factor (HCC) HEPATITIS C ANTIBODY Routine 06/16/2021 2:53 PM CDT Rheumatoid arthritis involving multiple sites with positive rheumatoid factor (HCC) High risk medication use HEMOGLOBIN A1C Routine 04/05/2019 12:54 PM CDT Intestinal malabsorption, unspecified type LIPID PANEL Routine 04/05/2019 12:54 PM CDT Intestinal malabsorption, unspecified type from Last 3 Months or Most Recently Relevant to Health Maintenance Results * (ABNORMAL) eGFR (01/03/2025 12:41 PM LIBRARY ACQUISITIONS TECHNICIAN) eGFR 57(L) >=60 mL/min/1. 73 m2 Comment: Interpretive Data Reference Interval Normal >/= 90 mL/min/1.73m2 Mildly decreased* 60 - 89 mL/min/1.73m2 Mildly to moderately decreased 45 - 59 mL/min/1.73m2 Moderately to severely decreased 30 - 44 mL/min/1.73m2 Severely decreased 15 - 29 mL/min/1.73m2 Kidney Failure < 15 mL/min/1.73m2 *Relative to young adult level Estimated glomerular [...] interpretive data was last reviewed 2021. Blood 01/03/2025 12:4 1 PM LIBRARY ACQUISITIONS TECHNICIAN 01/03/2025 5:30 PM LIBRARY ACQUISITIONS TECHNICIAN us Anjali Mckeon MD LAB BLOOD ORDERABLES Final Result [facility] [address] [place] [employer] [place] [address] * Erythrocyte sedimentation rate (01/03/2025 12:41 PM LIBRARY ACQUISITIONS TECHNICIAN) [facility] Erythrocyte sedimentation rate 21 1 - 30 mm/hr Blood 01/03/2025 12:4 1 PM LIBRARY ACQUISITIONS TECHNICIAN 01/03/2025 5:04 PM LIBRARY ACQUISITIONS TECHNICIAN Anjali Mckeon MD LAB BLOOD ORDERABLES Final Result Performing Organization Address City/[facility]/ZIP Co de Phone Number [facility] [address] [facility] [place] [employer] [place] [address] * (ABNORMAL) CBC without differential (01/03/2025 12:41 PM LIBRARY ACQUISITIONS TECHNICIAN) [facility] WBC 7.9 3.8 - 9.9 K/cumm Hgb 14.0 11.9 - 15.5 g/dL [facility] Hct 45.2 35.6 - 45.5 % [facility] Plt 177 150 - 400 K/cumm [facility] MPV 9.2 9.1 - 12.3 fL [facility] RBC 4.81 3.90 - 5.20 M/cumm [facility] MCV 94.0 81.3 - 96.4 fL [facility] MCH 29.1 27.1 - 33.3 pg [facility] MCHC 31.0(L) 32.3 - 35.7 g/dL [facility] RDW CV 14.6 11.1 - 14.9 % [facility] RDW SD 50.4(H) 35.7 - 48.1 fL [facility] NRBC abs 0.00 0.00 - 0.01 K/cumm [facility] Blood 01/03/2025 12:4 1 PM LIBRARY ACQUISITIONS TECHNICIAN 01/03/2025 5:04 PM LIBRARY ACQUISITIONS TECHNICIAN Anjali Mckeon MD LAB BLOOD ORDERABLES Final Result Performing Organization Address City/[facility]/ZIP Co de Phone Number [facility] [address] [facility] [place] [employer] [place] [address] * Comprehensive metabolic panel (01/03/2025 12:41 PM LIBRARY ACQUISITIONS TECHNICIAN) Sodium 138 135 - 145 mmol/L Potassium, pl 3.5 3.3 - 4.9 mmol/L [facility] Chloride 100 97 - 110 mmol/L [facility] CO2 25 22 - 32 mmol/L [facility] Anion gap 13 2 - 15 mmol/L [facility] BUN 14 6 - 25 mg/dL [facility] Creatinine 1.08 0.60 - 1.10 mg/dL [facility] Glucose 82 70 - 199 mg/dL [facility] Comment: Interpretive Data Fasting glucose >/= 126 mg/dl is diagnostic for diabetes. Fasting is defined as no caloric intake [...] interpretive data was last revised 2022. Calcium 8.6 8.5 - 10.3 mg/dL [facility] Bilirubin, total 0.5 0.1 - 1.2 mg/dL [facility] Protein, pl 7.4 6.5 - 8.5 g/dL [facility] Albumin 3.9 3.5 - 5.0 g/dL [facility] Alk phos 75 40 - 130 Units/L [facility] ALT 33 7 - 45 Units/L [facility] AST 28 10 - 45 Units/L [facility] Blood 01/03/2025 12:4 1 PM LIBRARY ACQUISITIONS TECHNICIAN 01/03/2025 5:30 PM LIBRARY ACQUISITIONS TECHNICIAN us Anjali Mckeon MD LAB BLOOD ORDERABLES Final Result [facility] [address] Department [place] [address] * Hepatitis C antibody (06/16/2021 2:53 PM CDT) Pathologist [facility] Hep C Ab Nonreactive Nonreactive [facility] Comment: Interpretive Data Nonreactive: Antibodies to HCV not detected. Does NOT exclude the possibility of recent exposure to HCV. Equivocal: Equivocal for HCV antibodies. Supplemental molecular testing will be automatically performed to determine infection status in accordance with current CDC screening recommendations. Reactive: Positive for HCV antibodies. This may represent current or past HCV infection. Supplemental molecular testing will be automatically performed to determine current infection status in accordance with current CDC screening recommendations. Interpretive data was last revised on 2020. Blood specimen (specimen) 06/16/2021 2:53 PM CDT 06/16/2021 5:54 PM CDT Elizabeth Devine MD LAB MICROBIOLOGY - GENERA L ORDERABLES Final Result [facility] [address] Department [place] [address] * (ABNORMAL) Hemoglobin A1c (04/05/2019 12:54 PM CDT) [facility] Hgb A1C 7.4(H) 4.0 - 5.6 % [facility] Estimated Average Glucose 166 mg/dL [facility] Comment: The ADA recommends reporting an estimated Average Glucose (eAG) with all Hemoglobin A1c results using the equation derived from a study of 507 normal and diabetic adults. Minority populations were underrepresented and children were not included. (Diabetes Care 31:0581-4982, 2008). The eAG is not equivalent to a fasting glucose. Blood specimen (specimen) 04/05/2019 12:54 PM CDT 04/05/2019 1:11 PM CDT Narrative [facility] - 04/05/2019 4:40 PM CDT Sourav Bolanos NP LAB BLOOD ORDERABLES Final Result [facility] Department [place] [address] * (ABNORMAL) Lipid panel (04/05/2019 12:54 PM CDT) Cholesterol 114 30 - 199 mg/dL [facility] Comment: Interpretive Data Ages < or = 19 years Acceptable: <170 mg/dL Borderline high: 170-199 mg/dL High: >or= 200 mg/dL Ages > or = 20 years Desirable: <200 mg/dL Borderline high: 200-239 mg/dL High: >or= 240 mg/dL Literature References: 1. Expert Panel on Integrated Guidelines for Cardiovascular Health and Risk Reduction in Children and Adolescents. Pediatrics 2011;128:S213 2. NCEP Expert Panel. Circulation 2004;110:227 Current Interpretive Data was last revised on 2018. Triglycerides 151(H) <=149 mg/dL [facility] Comment: Interpretive Data Ages < or = 9 years Acceptable: <75 mg/dL Borderline high: 75-99 mg/dL High: >or= 100 mg/dL Ages 10 to 20 years Acceptable: <90 mg/dL Borderline high: 90-129 mg/dL High: >or= 130 mg/dL Ages > or = 20 years Desirable: <150 mg/dL Borderline high: 150-199 mg/dL High: 200-499 mg/dL Very high: >or= 499 mg/dL Literature References: 1. Expert Panel on Integrated Guidelines for Cardiovascular Health and Risk Reduction in Children and Adolescents. Pediatrics 2011;128:S213 2. NCEP Expert Panel. Circulation 2004;110:227 Current Interpretive Data was last revised on 2018. HDL 39(L) >=40 mg/dL [facility] Comment: Interpretive Data Ages < or = 19 years Acceptable: >45 mg/dL Borderline low: 40-45 mg/dL Low: <40 mg/dL Ages > or = 20 years Desirable: >or= 60 mg/dL Low: <40 mg/dL Literature References: 1. Expert Panel on Integrated Guidelines for Cardiovascular Health and Risk Reduction in Children and Adolescents. Pediatrics 2011;128:S213 2. NCEP Expert Panel. Circulation 2004;110:227 Current Interpretive Data was last revised on 2018. LDL, calculated 45 <=129 mg/dL [facility] Comment: Interpretive Data Ages < or = 19 years Acceptable: <110 mg/dL Borderline high: 110-129 mg/dL High: >or= 130 mg/dL Ages > or = 20 years Optimal: <100 mg/dL Near optimal: 100-129 mg/dL Borderline high: 130-159 mg/dL High: >160 mg/dL Literature References: 1. Expert Panel on Integrated Guidelines for Cardiovascular Health and Risk Reduction in Children and Adolescents. Pediatrics 2011;128:S213 2. NCEP Expert Panel. Circulation 2004;110:227 Current Interpretive Data was last revised on 2018. Non-HDL Cholesterol 75 mg/dL [facility] Comment: Interpretive Data Ages < or = 19 years Acceptable: <120 mg/dL Borderline high: 120-144 mg/dL High: >145 mg/dL Ages > or = 20 years When triglycerides are >200 mg/dL, Non-HDL cholesterol is a secondary target of therapy with treatment goals that are 30 mg/dL greater than the LDL cholesterol target. Literature References: 1. Expert Panel on Integrated Guidelines for Cardiovascular Health and Risk Reduction in Children and Adolescents. Pediatrics 2011;128:S213 2. NCEP Expert Panel. Circulation 2004;110:227 Current Interpretive Data was last revised on 2018. Chol/HDL ratio 3 [facility] Blood specimen (specimen) 04/05/2019 12:54 PM CDT 04/05/2019 1:11 PM CDT Narrative [facility] - 04/05/2019 1:55 PM CDT Sourav Bolanos NP LAB BLOOD ORDERABLES Final Result [facility] [place] [address] from Last 3 Months or Most Recently Relevant to Health Maintenance Insurance [facility] CLAIMS MEDICARE SOLUTIONS MEDICARE SOLUTIONS [facility] [employer] Advance Directives For more information, please contact: [phone] Documents on File Type Date Recorded Patient Specialty Trimmer Expl anation ADVANCE DIRECTIVE 07/05/2018 12:00 AM 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
--- OUTSIDE RECORDS SUMMARY | 2025-01-30 15:19 | XMS_ITS | Clinical Summary ---
Author Organization [facility] Address [address] [place] [address] Care Team Providers Care Reset Merchandiser Name Role Phone Gisela Bro MD Primary Care Provider [phone] Allergies Active Allergy Reactions Criticality Noted Date [...] 10/07/2024 Assessment & Plan (10/07/2024 11:29 AM BLOCKER POLISHING): Encourage routine vaccinations. Follow up with PCP. [...] 07/24/2023 Assessment & Plan (10/07/2024 11:29 AM BLOCKER POLISHING): Long-term use of high-risk medication requiring regular monitoring. Labs ordered, no s/s of med tox or infection. Encouraged to work with PCP to make sure all recommended cancer screens and vaccinations are complete. Avoid live-vaccines unless reviewed with puller out first. Assessment & Plan (12/07/2023 10:51 AM BLOCKER POLISHING): Long-term use of high-risk medication requiring regular monitoring. Labs ordered, no s/s of med tox or infection. Encouraged to work with PCP to make sure all recommended cancer screens and vaccinations are complete. Avoid live-vaccines unless reviewed with puller out first. Assessment & Plan (07/24/2023 12:36 PM CDT): Long-term use of high-risk medication requiring regular monitoring. Labs ordered, no s/s of med tox or infection. Encouraged to work with PCP to make sure all recommended cancer screens and vaccinations are complete. Avoid live-vaccines unless reviewed with puller out first. Discussed importance of avoiding repeated skin [...] arthritis Assessment & Plan (10/07/2024 11:29 AM BLOCKER POLISHING): Stable on leflunomide and humira. Continue same. Labs today. Follow up in 6 months and prn. Assessment & Plan (12/07/2023 12:00 PM BLOCKER POLISHING): Flare in hand symptoms while off humira [...] w/r/t gut microbiome. Referred to ADA and [employer] websites for additional information on topics including [...] Department Care Team Description 01/03/2025 12:45 PM BLOCKER POLISHING - 01/03/2025 11:59 PM BLOCKER POLISHING Hospital Encounter [address] [address] Discharge Disposition: Discharge to home or self care 01/03/2025 12:00 PM BLOCKER POLISHING Office Visit [facility] Rheumatology at [address] [place] [address] Anjali Mckeon MD Rheumatoid arthritis involving multiple sites with positive rheumatoid factor (HCC) (Primary Dx); Encounter for long-term (current) use of high-risk medication 12/26/2024 Telephone [facility] Rheumatology at [address] [place] [address] Anjali Mckeon MD Lab Results 11/06/2024 Telephone [facility] Rheumatology at [address] [place] [address] Shelly Mcginnis NP 11/06/2024 Telephone [facility] Medical [facility] Rheumatology at [address] [place] [address] Dinorah Cesar from Last 3 Months Immunizations Immunization Administration Dates Next Due Influenza, [...] 10/18/1996 Tdap 08/30/2021 ZOSTER Recombinant 11/08/2021,08/30/2021, 021 Surgical History Surgery Date Site/Laterality Comments OTHER SURGICAL HISTORY right cholesteatoma OTHER SURGICAL HISTORY obesity: gastric bypass MASTOID SURGERY mastoidectomy KNEE ARTHROPLASTY Knee replacement GASTRIC BYPASS 11/27/2010 - 11/26/2011 CHOLECYSTECTOMY OOPHORECTOMY Left OTHER SURGICAL HISTORY 09/27/2022 - 10/26/2022 Thyroid Ultrasound Medical History Medical History Date Comments Hx Other Medical polycystic ovar antonia disease; Comments: [facility] 07/17/2014 - Hx Other Medical sleep apnea; Co mments: [facility] 07/17/2014 - Hyperlipidemia Hyperlipidemia; Comments: [facility] 07/17/2014 - Hx Other Medical obesity; Commen ts: [facility] 07/17/2014 - Covid-19 12/2021 Rheumatoid arthritis (HCC) [...] on file Legal Sex Female 10:44 AM BLOCKER POLISHING Gender Identity Not on file Sexual Orientation Not on file Obstetrics History Last Filed Vital Signs Vital Sign Reading Time Taken Comments Blood Pressure 112/60 01/03/2025 11:36 AM BLOCKER POLISHING Pulse 60 01/03/2025 11:36 AM BLOCKER POLISHING Temperature 36.3 C (97.4 F) 01/03/2025 11:36 AM BLOCKER POLISHING Respiratory Rate 16 07/24/2024 3:35 PM CDT Oxygen Saturation 97% 01/03/2025 11: 36 AM BLOCKER POLISHING Inhaled Oxygen Concentration - - Weight 126.1 kg (277 lb 14.4 oz) 2024 11:36 AM BLOCKER POLISHING Height 165.1 cm (5' 5 ) 01/03/2025 11:3 6 AM BLOCKER POLISHING Body Mass Index 46.24 01/03/2025 11:36 AM BLOCKER POLISHING Plan of Treatment Health Maintenance Due Date Last Done Comments Albumin Creatinine Ratio, Urine 1958 Breast Cancer Screening-Mammogram 1958 Colon Cancer Screening-Colonoscopy 1960 Depression Screening 1958 Fall Risk Assessment 1958 Osteoporosis Screening-Bone Density Scan 1958 Dilated Eye Exam 1958 Foot Exam 1958 Hepatitis B Screening 1976 Pneumococcal vaccine 65+ (2 of 2 - PPSV23) 01/26/2017 12/01/2016 Hemoglobin A1C 10/06/2019 04/05/2019, 03/30/2018 Lipid Panel 04/05/2020 04/05/2019, 02/2018, 04/01/2016, Additional history exists Well Visit 65+ 2023 Covid-19 Vaccine (5 - 2023-2 5 season) 2024 10/07/2022, 11/15/2021, 03/16/2021, Additional history exists eGFR 01/03/2026 01/03/2025, 09/27, 02/27/2024, Additional history exists DTaP/Tdap/Td Vaccine (2 - Td or Tdap) 08/30/2031 08/30/2021, 10/18/1996 Hepatitis C Screening Completed 06/16/2021 Zoster Vaccine Completed 11/08/2021, 02/2021, 07/28/2021 Influenza Vaccine Completed 10/07/2024, , 11/08/2021, Additional history exists Procedures Procedure Name Priority Date/Time Associated Diagnosis Comments EGFR Routine 01/03/2025 12:41 PM BLOCKER POLISHING Encounter for long-term (current) use of high-risk medication COMPREHENSIVE METABOLIC PANEL Routine 01/03/2025 12:41 PM BLOCKER POLISHING Encounter for long-term (current) use of high-risk medication CBC WITHOUT DIFFERENTIAL Routine 01/03/2025 12:41 PM BLOCKER POLISHING Encounter for long-term (current) use of high-risk medication ERYTHROCYTE SEDIMENTATION RATE Routine 01/03/2025 12:41 PM BLOCKER POLISHING Rheumatoid arthritis involving multiple sites with positive [...] Results * (ABNORMAL) eGFR (01/03/2025 12:41 PM BLOCKER POLISHING) eGFR 57(L) >=60 mL/min/1. 73 m2 Comment: [...] of Race in Diagnosing Kidney Disease, JASN 202). The CKD-EPI equation should not be used for patients with unstable renal function and has not been validated in children and those over 70. Current interpretive data was last reviewed 2021. Blood 01/03/2025 12:4 1 PM BLOCKER POLISHING 01/03/2025 5:30 PM BLOCKER POLISHING Anjali Mckeon MD LAB BLOOD ORDERABLES Final Result Performing Organization Address City/[facility]/ZIP Co de Phone Number [facility] [address] [facility] [place] [employer] [address] * Erythrocyte sedimentation rate (01/03/2025 12:41 PM BLOCKER POLISHING) Pathologist [facility] Erythrocyte sedimentation rate 21 1 - 30 mm/hr Blood 01/03/2025 12:4 1 PM BLOCKER POLISHING 01/03/2025 5:04 PM BLOCKER POLISHING Anjali Mckeon MD LAB BLOOD ORDERABLES Final Result Performing Organization Address [facility] Co de Phone Number [facility] [address] [place] [employer] [address] * (ABNORMAL) CBC without differential (01/03/2025 12:41 PM BLOCKER POLISHING) [facility] WBC 7.9 3.8 - 9.9 K/cumm Hgb 14.0 11.9 - 15.5 g/dL [facility] Hct 45.2 35.6 - 45.5 % [facility] Plt 177 150 - 400 K/cumm [facility] MPV 9.2 9.1 - 12.3 fL [facility] RBC 4.81 3.90 - 5.20 M/cumm [facility] MCV 94.0 81.3 - 96.4 fL [facility] MCH 29.1 27.1 - 33.3 pg [facility] MCHC 31.0(L) 32.3 - 35.7 g/dL [facility] RDW CV 14.6 11.1 - 14.9 % [facility] RDW SD 50.4(H) 35.7 - 48.1 fL [facility] NRBC abs 0.00 0.00 - 0.01 K/cumm [facility] Blood 01/03/2025 12:4 1 PM BLOCKER POLISHING 01/03/2025 5:04 PM BLOCKER POLISHING Anjali Mckeon MD LAB BLOOD ORDERABLES Final Result Performing Organization Address City/[facility]/ZIP Co de Phone Number [facility] [address] Department [place] [address] * Comprehensive metabolic panel (01/03/2025 12:41 PM BLOCKER POLISHING) Sodium 138 135 - 145 mmol/L Potassium, pl 3.5 3.3 - 4.9 mmol/L [facility] Chloride 100 97 - 110 mmol/L [facility] CO2 25 22 - 32 mmol/L [facility] Anion gap 13 2 - 15 mmol/L [facility] BUN 14 6 - 25 mg/dL [facility] Creatinine 1.08 0.60 - 1.10 mg/dL [facility] Glucose 82 70 - 199 mg/dL [facility] Comment: Interpretive Data Fasting glucose >/= 126 [...] classification and Diagnosis of Diabetes Diabetes Care 202; 46: S19-S40. Current interpretive data was last revised 2022. Calcium 8.6 8.5 - 10.3 mg/dL [facility] Bilirubin, total 0.5 0.1 - 1.2 mg/dL [facility] Protein, pl 7.4 6.5 - 8.5 g/dL [facility] Albumin 3.9 3.5 - 5.0 g/dL [facility] Alk phos 75 40 - 130 Units/L [facility] ALT 33 7 - 45 Units/L [facility] AST 28 10 - 45 Units/L [facility] Blood 01/03/2025 12:4 1 PM BLOCKER POLISHING 01/03/2025 5:30 PM BLOCKER POLISHING Anjali Mckeon MD LAB BLOOD ORDERABLES Final Result Performing Organization Address City/[facility]/ZIP Co de Phone Number [facility] [address] [place] [employer] [place] [address] * Hepatitis C antibody (06/16/2021 2:53 PM CDT) [facility] Hep C Ab Nonreactive Nonreactive [facility] Comment: Interpretive Data Nonreactive: Antibodies to HCV [...] CDT Elizabeth Devine MD LAB MICROBIOLOGY - [facility] L ORDERABLES Final Result Performing Organization Address [facility] de Phone Number [facility] [address] [place] [employer] [place] [address] * (ABNORMAL) Hemoglobin A1c (04/05/2019 12:54 PM CDT) [facility] Hgb A1C 7.4(H) 4.0 - 5.6 % [facility] Estimated Average Glucose 166 mg/dL [facility] Comment: The ADA recommends reporting an estimated Average Glucose (eAG) with all Hemoglobin A1c results using the equation derived from a study of 507 normal and diabetic adults. Minority populations were underrepresented and children were not included. (Diabetes Care 31:5652-8350, 2008). The eAG is not equivalent to a fasting glucose. Blood specimen (specimen) 04/05/2019 12:54 PM CDT 04/05/2019 1:11 PM CDT Narrative [facility] - 04/05/2019 4:40 PM CDT Sourav Bolanos NP LAB BLOOD ORDERABLES Final Result [facility] Department [place] [address] * (ABNORMAL) Lipid panel (04/05/2019 12:54 PM CDT) Cholesterol 114 30 - 199 mg/dL [facility] Comment: Interpretive Data Ages < or [...] revised on 2018. Triglycerides 151(H) <=149 mg/dL [facility] Comment: Interpretive Data Ages < or [...] revised on 2018. HDL 39(L) >=40 mg/dL [facility] Comment: Interpretive Data Ages < or [...] on 2018. LDL, calculated 45 <=129 mg/dL [facility] Comment: Interpretive Data Ages < or = [...] revised on 2018. Non-HDL Cholesterol 75 mg/dL [facility] Comment: Interpretive Data Ages < or = [...] last revised on 2018. Chol/HDL ratio 3 [facility] Blood specimen (specimen) 04/05/2019 12:54 PM CDT 04/05/2019 1:11 PM CDT Narrative [facility] - 04/05/2019 1:55 PM CDT us Sourav Bolanos NP LAB BLOOD ORDERABLES Final Result [facility] Department [place] [address] from Last 3 Months or Most Recently Relevant to Health Maintenance Insurance [facility] CLAIMS MEDICARE [employer] MEDIC[employer]IONS [facility] LIFE Advance Directives For more information, please contact: [phone] Documents on File Type Date Recorded Patient Lamp Decorator Expl anation ADVANCE DIRECTIVE 07/05/2018 12:00 AM POWER OF [employer]CIAL/MEDICAL Care Teams Reset Merchandiser Relationship Specialty Start Date End Date Gisela Bro MD PCP - General Family Medicine 02/27/24
--- OUTSIDE RECORDS SUMMARY | 2025-01-30 15:20 | XMS_ITS | Clinical Summary ---
Author Organization [facility] Address [facility] [place] [address] Care Team Providers Care Production Director Name Role Phone Merrill Mederos MD Primary [...] Hypokalemia 02/06/2023 Stage 3a chronic kidney disease ([facility] ) 04/07/2022 Type 2 diabetes mellitus wit h stage 3a chronic kidney disease, with long-term current use of insulin ([facility]) 04/07/2022 Primary hypertension 04/07/2022 Immunizations Name Administration Dates Next Due Influenza (Generic) 08/21/2014 Influenza Adult (Generic) 09/17/2020,06/2019,09/24/2018,08/21/2017,2016,08/27/2015 Pneumococcal (Prevnar 13) 12/01/2016 Social History Tobacco Use Types Packs/Day Years Used Date Smoking Tobacco: Former Cigarettes 1 10 1 98 - 1991 Smokeless Tobacco: Never Tobacco Cessation:Counseling [...] 57 02/06/2023 1:37 PM CDT Temperature 36.4 C (97.5 F) 02/06/2023 1:37 PM CDT Respiratory Rate 18 05/06/2022 10:37 AM CDT [...] 03/01/2023 Dexa Scan (General) 2023 PHQ-2 (Physician [place]) 02/07/2024 02/06/2023 COVID-19 Vaccine ( season) 2024 10/07/2022, 10/07/2022, 11/15/2021, Additional history exists Influenza Adult (#1) 2024 10/07/2022, 09/17/2020, 09/03/2019, Additional history exists PHQ-2 (Physician [place]) 11/27/2024 02/06/2023 Meningococcal B Vaccine Aged Out [...] disease, with long-term current use of insulin ([facility]) from Last 3 Months or Most Recently Relevant to Health Maintenance Results * (ABNORMAL) HEMOGLOBIN, GLYCOSYLATED (03/01/2023 12:56 PM CDT) HGB A1C 7.5(H) <5.7 % 03/01/2023 2:01 PM CDT [facility] Comment: ADA GUIDELINES 2010 5.7 TO 6.4% INCREASED RISK OF DIABETES > OR = 6.5% CONSISTENT WITH DIABETES ESTIMATED AVG GLUCOSE 169 mg/dL 03/01/2023 2:01 PM CDT [facility] 03/01/2023 12:5 6 PM CDT Merrill Mederos MD LABORATORY Final Result [facility] [address] [place] [address], from Last 3 Months or Most Recently Relevant to Health Maintenance Insurance [employer] [facility] [employer] [facility] Care Teams Production Director Relationship Specialty Start Date End Date Merrill Mederos MD PCP - General FAMILY PRACTICE 03/01/23
[2025-01-30 17:23] VITALS: BP 142/59; PULSE 65; TEMP 36.8; O2SAT 100
[2025-01-30 17:26] LABS: Basophils Absolute Auto 0.1 K/mm3 (0.0-0.1); Basophils Percent Auto 0.6 % (0.2-1.2); Eosinophils Absolute Auto 0.1 K/mm3 (0-0.3); Eosinophils Percent Auto 0.6 % (0-4.4); Hemoglobin 14.1 g/dL (12.0-15.0); Immature Granulocyte Absolute 0.11 K/mm3 (0.00-0.031); Immature Granulocyte Percent A 0.6 % (0-0.5); Lymphocytes Percent Auto 11.3 % (18.3-44.2); Mean Corpuscular HGB Conc 33.6 g/dl (32-36); Mean Corpuscular Hemoglobin 29.6 pg (26-34); Mean Corpuscular Volume 88.2 fl (80-100); Mean Platelet Volume 8.7 fl (7.4-10.4); Monocytes Absolute Auto 1.8 K/mm3 (0.1-0.6); Monocytes Percent Auto 10.3 % (2.6-8.5); Neutrophils Absolute Auto 13.5 K/mm3 (1.3-6.7); Neutrophils Percent Auto 76.6 % (45.5-73.1); Platelet Count Result 200 k/mm3 (150-375); Red Blood Count 4.76 M/mm3 (4.2-5.4); Red Cell Distribution Width 13.7 % (11.5-14.5); White Blood Count 17.7 K/mm3 (4.5-10.0)
[2025-01-30 17:45] LABS: Alanine Aminotransferase 22 U/L (6-35); Albumin Level 3.6 g/dL (3.5-5.1); Alkaline Phosphatase 91 U/L (38-126); Anion Gap 12 mmol/L (4-12); Aspartate Amino Transferase 27 U/L (14-36); Bilirubin,Total 1.2 mg/dL (0.2-1.3); Blood Urea Nitrogen 29 mg/dL (7-17); Calcium 8.6 mg/dL (8.4-10.2); Carbon Dioxide 26 mmol/L (22-30); Chloride 89 mmol/L (98-107); Estimated CRCL calculation 53 ml/min; Estimated Glomerular Filt Rate 43; Glucose 114 mg/dL (65-110); Sodium 127 mmol/L (137-145)
[2025-01-30 18:34] VITALS: BP 167/63; O2SAT 93
--- OUTSIDE RECORDS SUMMARY | 2025-01-30 18:56 | XMS_ITS | Clinical Summary ---
Author Organization [facility] Address [facility] [place] [address] Care Team Providers Care Shingler Name Role Phone Merrill Mederos MD Primary [...] Hypokalemia 02/06/2023 Stage 3a chronic kidney disease ([facility] ) 04/07/2022 Type 2 diabetes mellitus wit h stage 3a chronic kidney disease, with long-term current use of insulin ([facility]) 04/07/2022 Primary hypertension 04/07/2022 Immunizations Name Administration [...] 03/01/2023 Dexa Scan (General) 2023 PHQ-2 (Physician [place]) 02/07/2024 02/06/2023 COVID-19 Vaccine ( season) 2024 10/07/2022, 10/07/2022, 11/15/2021, Additional history exists Influenza Adult (#1) 2024 10/07/2022, 09/17/2020, 09/03/2019, Additional history exists PHQ-2 (Physician [place]) 11/27/2024 02/06/2023 Meningococcal B Vaccine Aged Out [...] disease, with long-term current use of insulin ([facility]) from Last 3 Months or Most Recently Relevant to Health Maintenance Results * (ABNORMAL) HEMOGLOBIN, GLYCOSYLATED (03/01/2023 12:56 PM CDT) HGB A1C 7.5(H) <5.7 % 03/01/2023 2:01 PM CDT [facility] Comment: ADA GUIDELINES 2010 5.7 TO 6.4% INCREASED RISK OF DIABETES > OR = 6.5% CONSISTENT WITH DIABETES ESTIMATED AVG GLUCOSE 169 mg/dL 03/01/2023 2:01 PM CDT [facility] 03/01/2023 12:5 6 PM CDT Merrill Mederos MD LABORATORY Final Result [facility] [address] [place] [address], from Last 3 Months or Most Recently Relevant to Health Maintenance Insurance [employer] [facility] [employer] [facility] Care Teams Shingler Relationship Specialty Start Date End Date Merrill Mederos MD PCP - General FAMILY PRACTICE 03/01/23
--- OUTSIDE RECORDS SUMMARY | 2025-01-30 18:56 | XMS_ITS | Referral Summary ---
Author Organization [facility] Address [address] [place] [address] Care Team Providers Care Presales Consultant Name Role Phone Gisela Bro MD Primary Care Provider [phone] Encounters Date Type Department Care Team Description 01/03/2025 12:45 PM VICE PRESIDENT MEDIA RELATIONS - 01/03/2025 11:59 PM VICE PRESIDENT MEDIA RELATIONS Hospital Encounter [address] [address] Discharge Disposition: Discharge to home or self care 01/03/2025 12:00 PM VICE PRESIDENT MEDIA RELATIONS Office Visit [facility] Rheumatology at [address] [address] Anjali Mckeon MD Rheumatoid arthritis involving multiple sites with positive rheumatoid factor (HCC) (Primary Dx); Encounter for long-term (current) use of high-risk medication 12/26/2024 Telephone [facility] Rheumatology at [address] [place] [address] Anjali Mckeon MD Lab Results 11/06/2024 Telephone [facility] Rheumatology at [address] [address] Shelly Mcginnis NP 11/06/2024 Telephone [facility] Rheumatology at [facility] [address] [facility] [address] [place] [address] Dinorah Cesar from Last 3 [...] 10/07/2024 Assessment & Plan (10/07/2024 11:29 AM VICE PRESIDENT MEDIA RELATIONS): Encourage routine vaccinations. Follow up with PCP. [...] 07/24/2023 Assessment & Plan (10/07/2024 11:29 AM VICE PRESIDENT MEDIA RELATIONS): Long-term use of high-risk medication requiring regular monitoring. Labs ordered, no s/s of med tox or infection. Encouraged to work with PCP to make sure all recommended cancer screens and vaccinations are complete. Avoid live-vaccines unless reviewed with cardroom manager first. Assessment & Plan (12/07/2023 10:51 AM VICE PRESIDENT MEDIA RELATIONS): Long-term use of high-risk medication requiring regular monitoring. Labs ordered, no s/s of med tox or infection. Encouraged to work with PCP to make sure all recommended cancer screens and vaccinations are complete. Avoid live-vaccines unless reviewed with cardroom manager first. Assessment & Plan (07/24/2023 12:36 PM CDT): Long-term use of high-risk medication requiring regular monitoring. Labs ordered, no s/s of med tox or infection. Encouraged to work with PCP to make sure all recommended cancer screens and vaccinations are complete. Avoid live-vaccines unless reviewed with cardroom manager first. Discussed importance of avoiding repeated skin [...] arthritis Assessment & Plan (10/07/2024 11:29 AM VICE PRESIDENT MEDIA RELATIONS): Stable on leflunomide and humira. Continue same. Labs today. Follow up in 6 months and prn. Assessment & Plan (12/07/2023 12:00 PM VICE PRESIDENT MEDIA RELATIONS): Flare in hand symptoms while off humira [...] w/r/t gut microbiome. Referred to ADA and [facility] websites for additional information on topics including glycemic index/carbohydrate choices, protein sources. Recommend dietitian follow up -- will see if PCP can refer closer to home. Consider change to Remi if covered by her insurance. Hypertension 07/17/2014 [...] on file Legal Sex Female 10:44 AM VICE PRESIDENT MEDIA RELATIONS Gender Identity Not on file Sexual Orientation Not on file Last Filed Vital Signs Vital Sign Reading Time Taken Comments Blood Pressure 112/60 01/03/2025 11:36 AM VICE PRESIDENT MEDIA RELATIONS Pulse 60 01/03/2025 11:36 AM VICE PRESIDENT MEDIA RELATIONS Temperature 36.3 C (97.4 F) 01/03/2025 11:36 AM VICE PRESIDENT MEDIA RELATIONS Respiratory Rate 16 07/24/2024 3:35 PM CDT Oxygen Saturation 97% 01/03/2025 11: 36 AM VICE PRESIDENT MEDIA RELATIONS Inhaled Oxygen Concentration - - Weight 126.1 kg (277 lb 14.4 oz) 2024 11:36 AM VICE PRESIDENT MEDIA RELATIONS Height 165.1 cm (5' 5 ) 01/03/2025 11:3 6 AM VICE PRESIDENT MEDIA RELATIONS Body Mass Index 46.24 01/03/2025 11:36 AM VICE PRESIDENT MEDIA RELATIONS Plan of Treatment Not on file Procedures Procedure Name Priority Date/Time Associated Diagnosis Comments EGFR Routine 01/03/2025 12:41 PM VICE PRESIDENT MEDIA RELATIONS Encounter for long-term (current) use of high-risk medication COMPREHENSIVE METABOLIC PANEL Routine 01/03/2025 12:41 PM VICE PRESIDENT MEDIA RELATIONS Encounter for long-term (current) use of high-risk medication CBC WITHOUT DIFFERENTIAL Routine 01/03/2025 12:41 PM VICE PRESIDENT MEDIA RELATIONS Encounter for long-term (current) use of high-risk medication ERYTHROCYTE SEDIMENTATION RATE Routine 01/03/2025 12:41 PM VICE PRESIDENT MEDIA RELATIONS Rheumatoid arthritis involving multiple sites with positive [...] Results * (ABNORMAL) eGFR (01/03/2025 12:41 PM VICE PRESIDENT MEDIA RELATIONS) eGFR 57(L) >=60 mL/min/1. 73 m2 Comment: [...] reviewed 2021. Blood 01/03/2025 12:4 1 PM VICE PRESIDENT MEDIA RELATIONS 01/03/2025 5:30 PM VICE PRESIDENT MEDIA RELATIONS us Anjali Mckeon MD LAB BLOOD ORDERABLES Final Result [facility] [address] [place] [address] * Erythrocyte sedimentation rate (01/03/2025 12:41 PM VICE PRESIDENT MEDIA RELATIONS) [facility] Erythrocyte sedimentation rate 21 1 - 30 mm/hr Blood 01/03/2025 12:4 1 PM VICE PRESIDENT MEDIA RELATIONS 01/03/2025 5:04 PM VICE PRESIDENT MEDIA RELATIONS Anjali Mckeon MD LAB BLOOD ORDERABLES Final Result Performing Organization Address City/[facility]/ZIP Co de Phone Number [facility] [address] [facility] [place] [address] * (ABNORMAL) CBC without differential (01/03/2025 12:41 PM VICE PRESIDENT MEDIA RELATIONS) [facility] WBC 7.9 3.8 - 9.9 K/cumm Hgb 14.0 11.9 - 15.5 g/dL [facility] Hct 45.2 35.6 - 45.5 % [facility] Plt 177 150 - 400 K/cumm [facility] MPV 9.2 9.1 - 12.3 fL [facility] RBC 4.81 3.90 - 5.20 M/cumm [facility] MCV 94.0 81.3 - 96.4 fL [facility] MCH 29.1 27.1 - 33.3 pg [facility] MCHC 31.0(L) 32.3 - 35.7 g/dL [facility] RDW CV 14.6 11.1 - 14.9 % [facility] RDW SD 50.4(H) 35.7 - 48.1 fL [facility] NRBC abs 0.00 0.00 - 0.01 K/cumm [facility] Blood 01/03/2025 12:4 1 PM VICE PRESIDENT MEDIA RELATIONS 01/03/2025 5:04 PM VICE PRESIDENT MEDIA RELATIONS Anjali Mckeon MD LAB BLOOD ORDERABLES Final Result Performing Organization Address City/[facility]/ZIP Co de Phone Number [facility] [address] [facility] [place] [address] * Comprehensive metabolic panel (01/03/2025 12:41 PM VICE PRESIDENT MEDIA RELATIONS) Sodium 138 135 - 145 mmol/L Potassium, pl 3.5 3.3 - 4.9 mmol/L [facility] Chloride 100 97 - 110 mmol/L [facility] CO2 25 22 - 32 mmol/L [facility] Anion gap 13 2 - 15 mmol/L [facility] BUN 14 6 - 25 mg/dL [facility] Creatinine 1.08 0.60 - 1.10 mg/dL [facility] Glucose 82 70 - 199 mg/dL [facility] Comment: Interpretive Data Fasting glucose >/= 126 [...] 8.5 - 10.3 mg/dL [facility] Bilirubin, total 0.5 0.1 - 1.2 mg/dL [facility] Protein, pl 7.4 6.5 - 8.5 g/dL [facility] Albumin 3.9 3.5 - 5.0 g/dL [facility] Alk phos 75 40 - 130 Units/L [facility] ALT 33 7 - 45 Units/L [facility] AST 28 10 - 45 Units/L [facility] Blood 01/03/2025 12:4 1 PM VICE PRESIDENT MEDIA RELATIONS 01/03/2025 5:30 PM VICE PRESIDENT MEDIA RELATIONS us Anjali Mckeon MD LAB BLOOD ORDERABLES Final Result [facility] [address] Department [place] [address] * Hepatitis C antibody (06/16/2021 2:53 PM CDT) Pathologist [facility] Hep C Ab Nonreactive Nonreactive [facility] Comment: Interpretive Data Nonreactive: Antibodies to HCV [...] L ORDERABLES Final Result [facility] [address] Department [place] [address] * (ABNORMAL) Hemoglobin A1c (04/05/2019 12:54 PM CDT) [facility] Hgb A1C 7.4(H) 4.0 - 5.6 % [facility] Estimated Average Glucose 166 mg/dL [facility] Comment: The ADA recommends reporting an estimated Average Glucose (eAG) with all Hemoglobin A1c results using the equation derived from a study of 507 normal and diabetic adults. Minority populations were underrepresented and children were not included. (Diabetes Care 31:3570-9352, 2008). The eAG is not equivalent to a fasting glucose. Blood specimen (specimen) 04/05/2019 12:54 PM CDT 04/05/2019 1:11 PM CDT Narrative [facility] - 04/05/2019 4:40 PM CDT Sourav Bolanos NP LAB BLOOD ORDERABLES Final Result [facility] Department [place] [address] * (ABNORMAL) Lipid panel (04/05/2019 12:54 PM CDT) Cholesterol 114 30 - 199 mg/dL [facility] Comment: Interpretive Data Ages < or = [...] revised on 2018. Triglycerides 151(H) <=149 mg/dL [facility] Comment: Interpretive Data Ages < or = [...] revised on 2018. HDL 39(L) >=40 mg/dL [facility] Comment: Interpretive Data Ages < or = [...] on 2018. LDL, calculated 45 <=129 mg/dL [facility] Comment: Interpretive Data Ages < [...] revised on 2018. Non-HDL Cholesterol 75 mg/dL [facility] Comment: Interpretive Data Ages < [...] last revised on 2018. Chol/HDL ratio 3 [facility] Blood specimen (specimen) 04/05/2019 12:54 PM CDT 04/05/2019 1:11 PM CDT Narrative [facility] - 04/05/2019 1:55 PM CDT Sourav Bolanos NP LAB BLOOD ORDERABLES Final Result [facility] Department [place] [address] from Last 3 Months or Most Recently Relevant to Health Maintenance Insurance [facility] CLAIMS MEDICARE SOLUTIONS MEDICARE SOLUTIONS [facility] [employer] Advance Directives For more information, please contact: [phone] Documents on File Type Date Recorded Patient Environmental Health And Safety Leader Expl anation ADVANCE DIRECTIVE 07/05/2018 12:00 AM POWER OF LEAD MAINTENANCE TECHNICIAN FINANCIAL/MEDICAL Care Teams Presales Consultant Relationship Specialty Start Date End Date Gisela Bro MD PCP - General Family Medicine 02/27/24
--- OUTSIDE RECORDS SUMMARY | 2025-01-30 18:56 | XMS_ITS | Encounter Summary ---
Author Organization [facility] Address 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
--- OUTSIDE RECORDS SUMMARY | 2025-01-30 18:56 | XMS_ITS | Clinical Summary ---
Author Organization [facility] Address [address] [place] [address] Phone Care Team Providers Care Labor Relations Or Personnel Negotiator Name Role Phone Gisela Bro MD Primary Care Provider [phone] Allergies No known active allergies Medications atorvastatin [...] Referring Provider: Tomi Gomez [address] [place] [address] Other: Nick Hollinsff Problem Noted Date Diagnosed [...] STL ABSTRACTION Provider, Abstract 11/05/2024 2:45 PM ENGINEER TECHNICAL STAFF Office Visit [facility] [address] [place] [address] Imer Astorga MD Chronic anemia (Primary Dx) 11/05/2024 Orders Only [facility] [address] [place] [address] Imer Astorga MD from Last 3 Months [...] on file Legal Sex Female 5:53 AM ENGINEER TECHNICAL STAFF Gender Identity Not on file Sexual Orientation Not on file Last Filed Vital Signs Vital Sign Reading Time Taken Comments Blood Pressure 102/54 11/05/2024 2:44 PM ENGINEER TECHNICAL STAFF Pulse 60 11/05/2024 2:44 PM ENGINEER TECHNICAL STAFF Temperature 36.4 C (97.5 F) 11/05/2024 2:44 PM ENGINEER TECHNICAL STAFF Respiratory Rate 18 11/05/2024 2:44 PM ENGINEER TECHNICAL STAFF Oxygen Saturation 97% 11/05/2024 2:44 PM ENGINEER TECHNICAL STAFF Inhaled Oxygen Concentration - - Weight 128.8 kg (284 lb) 11/05/2024 2:44 PM ENGINEER TECHNICAL STAFF Height 170.2 cm (5' 7 ) 05/22/2024 [...] RECEPTOR TFR SOLUBLE Routine 11/01/2024 2:35 PM ENGINEER TECHNICAL STAFF MAMMO SCREEN BILAT W OR WO CAD Routine 04/05/2010 from Last 3 Months or Most Recently Relevant to Health Maintenance Results * TRANSFERRIN RECEPTOR TFR SOLUBLE (11/01/2024 2:35 PM ENGINEER TECHNICAL STAFF) Blood us Imer Astorga MD CHEMISTRY ORDERABLES Final Resu lt * MAMMO DIGITAL SCREEN BILAT (04/05/2010) Anatomical Region Laterality Modality Breast Bilateral Other us Milli Schultz MD MAMMO ORDERABLES Final Resul t from Last 3 Months or Most Recently Relevant to Health Maintenance Insurance [facility] BLUE [employer]/TRUE BLUE PPO [facility] PPO [facility] [id number] [employer] LIFE Care Teams Labor Relations Or Personnel Negotiator Relationship Specialty Start Date End Date Gisela Bro MD [address] [place] [phone] PCP - General Family Practice 11/05/24
--- OUTSIDE RECORDS SUMMARY | 2025-01-30 18:56 | XMS_ITS | Encounter Summary ---
Author Organization [facility] Care Team Providers Care Steel Checker Name Role Phone Tomi Gomez MD Primary Care Provider [phone] Sydni Spencer MD Primary Care Provider [phone] Unknown, Notinfile Primary Care Provider Unavail able Merrill Mederos MD Primary Care Provider [phone] Gisela Bro MD Primary Care Provider [phone] Encounter Details Date Type Department Care Team (Latest Contact Info) Description 07/05/2018 Orders Only [facility]INCON[facility] ProviderYoanna MD [address] [place], [place] [id number] Social History Tobacco Use Types Packs/Day Years Used Date Smoking Tobacco: Former Smokeless Tobacco: Never Comments:Smoking History Pac ks/day: 2 Cigarettes Alcohol Use Standard Drinks/Week Comments No 0 (1 standard drink = 0.6 oz pur e alcohol) Comments Unknown Sex and Gender Information Value Date Recorded Sex Assigned at Not on file Legal Sex Female 10:44 AM FINANCE CONTROLLER Gender Identity Not on file Sexual Orientation [...] documented as of this encounter Care Teams Steel Checker Relationship Specialty Start Date End Date Tomi Gomez MD PCP - General 03/30/18 07/09/19 Sydni Spencer MD [address] [place] [address] PCP - General 07/10/19 06/28/22 Unknown, Notinfile PCP - General 06/29/22 08/28/22 Merrill Mederos MD PCP - General Metal Baler 08/29/22 02/26/24 Gisela Bro MD PCP - General Family Medicine 02/27/24 documented as of this encounter
--- OUTSIDE RECORDS SUMMARY | 2025-01-30 18:56 | XMS_ITS | Clinical Summary ---
Author Organization [facility] Address [address] [place] [address] Care Team Providers Care Movers Name Role Phone Gisela Bro MD Primary Care Provider [phone] Allergies Active Allergy Reactions Criticality Noted Date [...] 10/07/2024 Assessment & Plan (10/07/2024 11:29 AM SPINNERET PERSON): Encourage routine vaccinations. Follow up with PCP. [...] 07/24/2023 Assessment & Plan (10/07/2024 11:29 AM SPINNERET PERSON): Long-term use of high-risk medication requiring regular monitoring. Labs ordered, no s/s of med tox or infection. Encouraged to work with PCP to make sure all recommended cancer screens and vaccinations are complete. Avoid live-vaccines unless reviewed with phlebotomy technologist first. Assessment & Plan (12/07/2023 10:51 AM SPINNERET PERSON): Long-term use of high-risk medication requiring regular monitoring. Labs ordered, no s/s of med tox or infection. Encouraged to work with PCP to make sure all recommended cancer screens and vaccinations are complete. Avoid live-vaccines unless reviewed with phlebotomy technologist first. Assessment & Plan (07/24/2023 12:36 PM CDT): Long-term use of high-risk medication requiring regular monitoring. Labs ordered, no s/s of med tox or infection. Encouraged to work with PCP to make sure all recommended cancer screens and vaccinations are complete. Avoid live-vaccines unless reviewed with phlebotomy technologist first. Discussed importance of avoiding repeated skin [...] arthritis Assessment & Plan (10/07/2024 11:29 AM SPINNERET PERSON): Stable on leflunomide and humira. Continue same. Labs today. Follow up in 6 months and prn. Assessment & Plan (12/07/2023 12:00 PM SPINNERET PERSON): Flare in hand symptoms while off humira [...] w/r/t gut microbiome. Referred to ADA and [employer] websites for additional information on topics including [...] Department Care Team Description 01/03/2025 12:45 PM SPINNERET PERSON - 01/03/2025 11:59 PM SPINNERET PERSON Hospital Encounter [address] [address] Discharge Disposition: Discharge to home or self care 01/03/2025 12:00 PM SPINNERET PERSON Office Visit [facility] Rheumatology at [address] [place] [address] Anjali Mckeon MD Rheumatoid arthritis involving multiple sites with positive rheumatoid factor (HCC) (Primary Dx); Encounter for long-term (current) use of high-risk medication 12/26/2024 Telephone [facility] Rheumatology at [address] [place] [address] Anjali Mckeon MD Lab Results 11/06/2024 Telephone [facility] Rheumatology at [address] [place] [address] Shelly Mcginnis NP 11/06/2024 Telephone [facility] Medical [facility] Rheumatology at [address] [place] [address] Dinorah Cesar from Last 3 [...] Other Medical polycystic ovar antonia disease; Comments: [facility] 07/17/2014 - Hx Other Medical sleep apnea; Co mments: [facility] 07/17/2014 - Hyperlipidemia Hyperlipidemia; Comments: [facility] 07/17/2014 - Hx Other Medical obesity; Commen ts: [facility] 07/17/2014 - Covid-19 12/2021 Rheumatoid [...] on file Legal Sex Female 10:44 AM SPINNERET PERSON Gender Identity Not on file Sexual Orientation Not on file Obstetrics History Last Filed Vital Signs Vital Sign Reading Time Taken Comments Blood Pressure 112/60 01/03/2025 11:36 AM SPINNERET PERSON Pulse 60 01/03/2025 11:36 AM SPINNERET PERSON Temperature 36.3 C (97.4 F) 01/03/2025 11:36 AM SPINNERET PERSON Respiratory Rate 16 07/24/2024 3:35 PM CDT Oxygen Saturation 97% 01/03/2025 11: 36 AM SPINNERET PERSON Inhaled Oxygen Concentration - - Weight 126.1 kg (277 lb 14.4 oz) 2024 11:36 AM SPINNERET PERSON Height 165.1 cm (5' 5 ) 01/03/2025 11:3 6 AM SPINNERET PERSON Body Mass Index 46.24 01/03/2025 11:36 AM SPINNERET PERSON Plan of Treatment Health Maintenance Due Date [...] Diagnosis Comments EGFR Routine 01/03/2025 12:41 PM SPINNERET PERSON Encounter for long-term (current) use of high-risk medication COMPREHENSIVE METABOLIC PANEL Routine 01/03/2025 12:41 PM SPINNERET PERSON Encounter for long-term (current) use of high-risk medication CBC WITHOUT DIFFERENTIAL Routine 01/03/2025 12:41 PM SPINNERET PERSON Encounter for long-term (current) use of high-risk medication ERYTHROCYTE SEDIMENTATION RATE Routine 01/03/2025 12:41 PM SPINNERET PERSON Rheumatoid arthritis involving multiple sites with positive [...] Results * (ABNORMAL) eGFR (01/03/2025 12:41 PM SPINNERET PERSON) eGFR 57(L) >=60 mL/min/1. 73 m2 Comment: [...] reviewed 2021. Blood 01/03/2025 12:4 1 PM SPINNERET PERSON 01/03/2025 5:30 PM SPINNERET PERSON Anjali Mckeon MD LAB BLOOD ORDERABLES Final Result Performing Organization Address City/[facility]/ZIP Co de Phone Number [facility] [address] [facility] [place] [address] * Erythrocyte sedimentation rate (01/03/2025 12:41 PM SPINNERET PERSON) Pathologist [facility] Erythrocyte sedimentation rate 21 1 - 30 mm/hr Blood 01/03/2025 12:4 1 PM SPINNERET PERSON 01/03/2025 5:04 PM SPINNERET PERSON Anjali Mckeon MD LAB BLOOD ORDERABLES Final Result Performing Organization Address [facility] Co de Phone Number [facility] [address] [employer] [place] [address] * (ABNORMAL) CBC without differential (01/03/2025 12:41 PM SPINNERET PERSON) [facility] WBC 7.9 3.8 - 9.9 K/cumm Hgb 14.0 11.9 - 15.5 g/dL [facility] Hct 45.2 35.6 - 45.5 % [facility] Plt 177 150 - 400 K/cumm [facility] MPV 9.2 9.1 - 12.3 fL [facility] RBC 4.81 3.90 - 5.20 M/cumm [facility] MCV 94.0 81.3 - 96.4 fL [facility] MCH 29.1 27.1 - 33.3 pg [facility] MCHC 31.0(L) 32.3 - 35.7 g/dL [facility] RDW CV 14.6 11.1 - 14.9 % [facility] RDW SD 50.4(H) 35.7 - 48.1 fL [facility] NRBC abs 0.00 0.00 - 0.01 K/cumm [facility] Blood 01/03/2025 12:4 1 PM SPINNERET PERSON 01/03/2025 5:04 PM SPINNERET PERSON Anjali Mckeon MD LAB BLOOD ORDERABLES Final Result Performing Organization Address City/[facility]/ZIP Co de Phone Number [facility] [address] Department [place] [address] * Comprehensive metabolic panel (01/03/2025 12:41 PM SPINNERET PERSON) Sodium 138 135 - 145 mmol/L Potassium, pl 3.5 3.3 - 4.9 mmol/L [facility] Chloride 100 97 - 110 mmol/L [facility] CO2 25 22 - 32 mmol/L [facility] Anion gap 13 2 - 15 mmol/L [facility] BUN 14 6 - 25 mg/dL [facility] Creatinine 1.08 0.60 - 1.10 mg/dL [facility] Glucose 82 70 - 199 mg/dL [facility] Comment: Interpretive Data Fasting glucose [...] 2022. Calcium 8.6 8.5 - 10.3 mg/dL [facility] Bilirubin, total 0.5 0.1 - 1.2 mg/dL [facility] Protein, pl 7.4 6.5 - 8.5 g/dL [facility] Albumin 3.9 3.5 - 5.0 g/dL [facility] Alk phos 75 40 - 130 Units/L [facility] ALT 33 7 - 45 Units/L [facility] AST 28 10 - 45 Units/L [facility] Blood 01/03/2025 12:4 1 PM SPINNERET PERSON 01/03/2025 5:30 PM SPINNERET PERSON Anjali Mckeon MD LAB BLOOD ORDERABLES Final Result Performing Organization Address City/[facility]/ZIP Co de Phone Number [facility] [address] [place] [address] * Hepatitis C antibody (06/16/2021 2:53 PM CDT) [facility] Hep C Ab Nonreactive Nonreactive [facility] Comment: Interpretive Data Nonreactive: Antibodies [...] CDT Elizabeth Devine MD LAB MICROBIOLOGY - [facility] L ORDERABLES Final Result Performing Organization Address [facility] de Phone Number [facility] [address] Department [place] [address] * (ABNORMAL) Hemoglobin A1c (04/05/2019 12:54 PM CDT) [facility] Hgb A1C 7.4(H) 4.0 - 5.6 % [facility] Estimated Average Glucose 166 mg/dL [facility] Comment: The ADA recommends reporting an estimated Average Glucose (eAG) with all Hemoglobin A1c results using the equation derived from a study of 507 normal and diabetic adults. Minority populations were underrepresented and children were not included. (Diabetes Care 31:2726-8374, 2008). The eAG is not equivalent to a fasting glucose. Blood specimen (specimen) 04/05/2019 12:54 PM CDT 04/05/2019 1:11 PM CDT Narrative [facility] - 04/05/2019 4:40 PM CDT Sourav Bolanos NP LAB BLOOD ORDERABLES Final Result [facility] Department [place] [address] * (ABNORMAL) Lipid panel (04/05/2019 12:54 PM CDT) Cholesterol 114 30 - 199 mg/dL [facility] Comment: Interpretive Data Ages < or = [...] revised on 2018. Triglycerides 151(H) <=149 mg/dL [facility] Comment: Interpretive Data Ages < or = [...] revised on 2018. HDL 39(L) >=40 mg/dL [facility] Comment: Interpretive Data Ages < or = [...] on 2018. LDL, calculated 45 <=129 mg/dL [facility] Comment: Interpretive Data Ages < or [...] revised on 2018. Non-HDL Cholesterol 75 mg/dL [facility] Comment: Interpretive Data Ages < or [...] last revised on 2018. Chol/HDL ratio 3 [facility] Blood specimen (specimen) 04/05/2019 12:54 PM CDT 04/05/2019 1:11 PM CDT Narrative [facility] - 04/05/2019 1:55 PM CDT us Sourav Bolanos NP LAB BLOOD ORDERABLES Final Result [facility] Department [place] [address] from Last 3 Months or Most Recently Relevant to Health Maintenance Insurance [facility] CLAIMS MEDICARE [facility] MEDIC[facility] Address: [facility] [address] [place] [address] MEDICARE [facility] MEDIC[facility] Address: [address] [address] [place] [address] [facility] LIFE Advance Directives For more information, please contact: [phone] Documents on File Type Date Recorded Patient Investment Accountant Expl anation ADVANCE DIRECTIVE 07/05/2018 12:00 AM [employer] Care Teams Movers Relationship Specialty Start Date End Date Gisela Bro MD PCP - General Family Medicine 02/27/24
--- NOTE | 2025-01-30 19:06 | ED_ITS ---
HPI - Fever General Chief Complaint: Fever Stated Complaint: fever,chills Time Seen by Provider: 01/30/25 14:18 Source: patient Mode of arrival: ambulatory Limitations: no limitations History of Present Illness HPI Narrative: Pt presents with fever and chills. Pt denies cough or dysuria or frequency. Pt says she has boil on labia that has been draining and is painful. Pt has history of MRSA and boils. Pt denies nausea or vomiting. Related Data Home Medications ?Medication ?Instructions ?Recorded ?Confirmed ?Last Taken ?Type escitalopram oxalate 10 mg tablet 10 mg PO DAILY 10/04/19 10/30/24 08/10/22 History folic acid 1 mg tablet 1 mg PO DAILY 10/04/19 10/30/24 08/10/22 History multivitamin 1 tablet PO DAILY 10/04/19 10/30/24 08/10/22 History ascorbic acid (vitamin C) 1,000 mg 500 mg PO DAILY 11/22/23 10/30/24 Unknown History tablet (Vitamin C) cholecalciferol (vitamin D3) 125 125 mcg PO DAILY 11/22/23 10/30/24 Unknown History mcg (5,000 unit) capsule mecobalamin (vitamin B12) 500 mcg 500 mcg PO DAILY 01/25/24 10/30/24 Unknown History chewable tablet adalimumab 40 mg/0.4 mL See Rx Instructions subcut .COMPLEX 05/06/24 10/30/24 Unknown History subcutaneous pen kit (Humira(CF) Pen) biotin 2,500 mcg capsule 5 mg PO DAILY 05/06/24 10/30/24 Unknown History leflunomide 10 mg tablet 10 mg PO DAILY 10/29/24 10/30/24 Unknown History Allergies Allergy/AdvReac Type Severity Reaction Status Date / Time adhesive Allergy Intermediate SKIN Verified 01/30/25 14:03 BREAKS OUT Review of Systems 2 Review of Systems: All systems reviewed & are unremarkable except as noted in HPI and below PMFSH Past Medical History Medical History Anxiety CKD (chronic kidney disease) CVA (cerebral vascular accident) Diabetes mellitus GERD (gastroesophageal reflux disease) Hiatal hernia HLD (hyperlipidemia) HTN (hypertension) Rheumatoid arthritis Sleep apnea with use of continuous positive airway pressure (CPAP) Sore throat TIA (transient ischemic attack) Surgical History Surgical History H/O cardiac catheterization H/O oophorectomy Lt History of carpal tunnel surgery History of cholecystectomy History of ear surgery Rt x2 History of esophagogastroduodenoscopy (EGD) 02/26/24 History of gastric bypass History of knee replacement Rt Family History Family History Mother Family history of osteoporosis Hypertension Father Family history of diabetes mellitus in first degree relative Family history of coronary artery disease Heart disease Grandparent Diabetes mellitus Sibling B-cell lymphoma Diabetes mellitus Hypertension Cerebrovascular accident Social History Social History Smoking status: Former smoker Tobacco type: cigarettes Alcohol intake: never Substance use: never Substance use type: does not use Do You Feel Safe in your Home?: Yes Lack of Transportation: No Lack of Food: Never True Current Housing: I Have Housing Concerned About Future Housing: No Difficulty Paying Gas/Electric Bills: No Difficulty Paying for Meds: No Currently Unemployed: YES Education: High School Diploma/GED Difficulty w/ Childcare or Family Care: No Living arrangements: alone Occupation/Education: retired Gender identity (if verbalized by the patient): Female Spiritual care concerns: No Agree to blood products: Yes Exam 2 Const: General: no acute distress Nutritional Appearance: obese O rientation/consciousness: patient oriented x3 Limitations: no limitations Neck: Neck: normal visual inspection and no meningeal signs Resp: Effort & Inspection: normal respiratory effort Auscultation: clear to auscultation bilaterally Cardio: Rate: regular rate Rhythm: regular rhythm GI: GI Palp: Yes Soft to palpation and No Tenderness to palpation present (GI) Auscultation: normal bowel sounds Skin: General skin exam: normal color Rashes: no rashes Other: pt has large labial abscess extending with firm area on right in low abdomen Neuro: General: patient oriented x3, moves all extremities and no focal motor deficits Cranial nerves: Yes Nystagmus not present Speech: normal speech Extrem: General: normal to inspection and no clubbing, cyanosis or edema Psych: Appearance: grossly normal Mental Status: mental status grossly normal Affect: normal affect Attitude: cooperative Course Vital Signs Vital signs: Vital Signs Temperature 98.1 F 01/30/25 14:16 Pulse Rate 80 01/30/25 14:16 Respiratory Rate 18 01/30/25 14:16 Blood Pressure 124/51 L 01/30/25 14:16 Pulse Oximetry 99 01/30/25 14:16 Oxygen Delivery Room Air 01/30/25 14:16 Temperature 98.3 F 01/30/25 17:23 Pulse Rate 74 01/30/25 21:26 Respiratory Rate 19 01/30/25 21:26 Blood Pressure 159/62 H 01/30/25 21:26 Pulse Oximetry 99 01/30/25 21:26 Oxygen Delivery Room Air 01/30/25 14:16 MDM - Fever MDM Narrative Medical decision making narrative: Pt presents with fever chills and large labial abscess. will need labs and CT abd and pelvis and antibiotics. Pt has 17 k wbc, pt has [place] on CT. [facility] , faye would like transferred to Er at [facility]. Discussed with Dr Mendes in ED at [facility] will accept pt. Lab Data 01/30/25 17:19 01/30/25 17:19 Labs: Lab Results 01/30/25 01/30/25 01/30/25 Range/Units 17:19 18:57 19:37 WBC 17.7 H (4.5-10.0) K/mm3 RBC 4.76 (4.2-5.4) M/mm3 Hgb 14.1 (12.0-15.0) g/dL Hct 42.0 (37.0-47.0) % MCV 88.2 (80-100) fl MCH 29.6 (26-34) pg MCHC 33.6 (32-36) g/dl RDW 13.7 (11.5-14.5) % Plt Count 200 (150-375) k/mm3 MPV 8.7 (7.4-10.4) fl Immature Gran % (Auto) 0.6 H (0-0.5) % Neut % (Auto) 76.6 H (45.5-73.1) % Lymph % (Auto) 11.3 L (18.3-44.2) % [place] % (Auto) 10.3 H (2.6-8.5) % Eos % (Auto) 0.6 (0-4.4) % Baso % (Auto) 0.6 (0.2-1.2) % Lymph # (Auto) 2.00 (0.9-3.2) K/mm3 [place] # (Auto) 1.8 H (0.1-0.6) K/mm3 Eos # (Auto) 0.1 (0-0.3) K/mm3 Baso # (Auto) 0.1 (0.0-0.1) K/mm3 Abs Immat Gran (auto) 0.11 H (0.00-0.031) K/mm3 Absolute Neuts (auto) 13.5 H (1.3-6.7) K/mm3 Absolute Nucleated RBC 0.000 (0.0-0.012) K/mm3 Nucleated RBC % 0.0 (0.0-0.2) % Sodium 127 L (137-145) mmol/L Potassium 3.0 L (3.4-5.0) mmol/L Chloride 89 L (98-107) mmol/L Carbon Dioxide 26 (22-30) mmol/L Anion Gap 12 (4-12) mmol/L BUN 29 H D (7-17) mg/dL Creatinine 1.24 H (0.7-1.0) mg/dL Estim Creat Clear Calc 53 ml/min Estimated GFR 43 L (59 - ) Glucose 114 H (65-110) mg/dL Lactic Acid Pending Calcium 8.6 (8.4-10.2) mg/dL Total Bilirubin 1.2 (0.2-1.3) mg/dL AST 27 (14-36) U/L ALT 22 (6-35) U/L Alkaline Phosphatase 91 (38-126) U/L Total Protein 7.0 (6.3-8.2) g/dL Albumin 3.6 (3.5-5.1) g/dL Influenza A (RT-PCR) Negative (Negative) Influenza B (RT-PCR) Negative (Negative) SARS-CoV-2 RNA (RT-PCR) Negative (Negative) Discharge Plan Discharge Clinical Impression: Necrotizing fasciitis Patient Disposition: Acute Care Hospital Condition: Critical Patient Language: Romanian Prescriptions: No Action folic acid 1 mg Tablet 1 mg PO DAILY escitalopram oxalate 10 mg Tablet 10 mg PO DAILY multivitamin Tablet 1 tablet PO DAILY ascorbic acid (vitamin C) [Vitamin C] 1,000 mg tablet 500 mg PO DAILY cholecalciferol (vitamin D3) 125 mcg (5,000 unit) capsule 125 mcg PO DAILY biotin 2,500 mcg capsule 5 mg PO DAILY Humira(CF) Pen 40 mg/0.4 mL pen injector kit See Rx Instructions subcut .COMPLEX Rx Instructions: inject one - 40 mg/0.4 mL pen every 2 weeks subcut leflunomide 10 mg tablet 10 mg PO DAILY mecobalamin (vitamin B12) 500 mcg tablet,chewable 500 mcg PO DAILY benzonatate 200 mg capsule 200 mg PO TID PRN (Reason: cough) Qty: 30 0RF omeprazole 40 mg capsule,delayed release(DR/EC) See Rx Instructions .ROUTE .COMPLEX Qty: 90 1RF Dose Instruction: TAKE 1 CAPSULE BY MOUTH EVERY DAY Rx Instructions: TAKE 1 CAPSULE BY MOUTH EVERY DAY aspirin [Enteric Coated Aspirin] 81 mg tablet,delayed release (DR/EC) 81 mg PO DAILY Qty: 90 1RF atorvastatin 20 mg tablet 20 mg PO DAILY Qty: 90 3RF chlorthalidone 25 mg tablet 25 mg PO DAILY Qty: 90 3RF Trulicity 1.5 mg/0.5 mL pen injector 1.5 mg subcut WEEKLY Qty: 6 1RF fosinopril 40 mg tablet 40 mg PO DAILY Qty: 90 3RF Jardiance 10 mg tablet 10 mg PO DAILY Qty: 30 0RF nebivolol 10 mg tablet 10 mg PO TID Qty: 1 0RF omega 0-pig-hep-fish oil [Fish Oil] 300-1,000 mg capsule 1 cap PO DAILY Qty: 90 1RF Follow-up/Referrals: Gisela Bro MD [Primary Care Provider] -
[2025-01-30] MEDS: VANCOMYCIN 1,250 MG/NS 250 ML 1,250 MG/250 ML BAG 166.67 MG IVPB ×2 (20:09→21:45)
[2025-01-30 20:19] LABS: Influenza A QL RT-PCR Negative (Negative); Influenza B QL RT-PCR Negative (Negative); SARS-CoV-2 RNA PCR Negative (Negative)
[2025-01-30 21:26] VITALS: BP 159/62; PULSE 74; RESP 19; O2SAT 99
[2025-01-30 21:45] VITALS: BP 84/39; PULSE 70; RESP 17; O2SAT 98
--- NOTE | 2025-01-30 21:45 | PC.NURSE ---
Dr. Delatorre made aware of patient's low blood pressures. Patient in room fanning herself. Verbal order for a liter of normal saline to be started.
[2025-01-30] MEDS: SODIUM CHLORIDE 0.9% IV 1,000 ML 999 ML IV CONT (21:56)
[2025-01-30 22:13] VITALS: BP 106/40; PULSE 71; RESP 20
== END 2025-01-30 22:24 | disposition short-term general hospital (02) ==
PROVIDERS: Physician Assistant; Emergency Provider Emergency Medicine; PCP Family Medicine
DX: M72.6 Necrotizing fasciitis (principal); Z20.822 Contact with and (suspected) exposure to COVID-19; I12.9 Hypertensive chronic kidney disease with stage 1 through stage 4 chronic kidney disease, or unspecified chronic kidney disease; E11.22 Type 2 diabetes mellitus with diabetic chronic kidney disease; N18.9 Chronic kidney disease, unspecified; Z86.73 Personal history of transient ischemic attack (TIA), and cerebral infarction without residual deficits; K21.9 Gastro-esophageal reflux disease without esophagitis; K44.9 Diaphragmatic hernia without obstruction or gangrene; E78.5 Hyperlipidemia, unspecified; M06.9 Rheumatoid arthritis, unspecified; G47.30 Sleep apnea, unspecified; Z98.84 Bariatric surgery status; Z96.651 Presence of right artificial knee joint; Z87.891 Personal history of nicotine dependence; Z90.49 Acquired absence of other specified parts of digestive tract; Z90.721 Acquired absence of ovaries, unilateral; Z79.899 Other long term (current) drug therapy; Z79.82 Long term (current) use of aspirin; Z79.85 Long-term (current) use of injectable non-insulin antidiabetic drugs; Z79.84 Long term (current) use of oral hypoglycemic drugs; Z79.620 Long term (current) use of immunosuppressive biologic
CPT/HCPCS: 36415; 72193; 80053; 85025; 87636; 96365; 96366; 96367; 99285; J3370; J7030; Q9967

== ENCOUNTER 2025-04-24 09:41 | Outpatient (CLI) | payer MEDICARE, OTHER, SELFPAY ==
--- OUTSIDE RECORDS SUMMARY | 2025-04-24 09:47 | XMS_ITS | Clinical Summary ---
Author Organization [facility] Address [address] [place] [address] Care Team Providers Care Testing Manager Name Role Phone Gisela Bro MD Primary Care Provider [phone] Allergies Active Allergy Reactions Criticality Noted Date [...] ER 10 mEq CR tablet Take 1 tablet/capsul e (10 mEq total) by mouth daily 3 Active cinnamon bark 500 mg capsule Take 1 capsule (500 mg total) by mouth daily Active omeprazole (PriLOSEC) 40 mg capsule Take 1 capsule (40 mg total) by mouth daily 4 Active Jardiance 10 mg tablet 5 Active folic acid (FOLVITE) 1 mg tablet Take 1 tablet (1 mg total) by mouth daily 90 tablet 3 5 Active adalimumab (Humira,CF, Pen) 40 mg/0.4 mL pen injector kitIndications: Rheumatoid Arthritis Inject 0.4 mL (40 mg total) under the skin every 14 (fourteen) days 2 kit 5 5 Active leflunomide (ARAVA) 10 mg tabletIndicatio ns:Rheumatoid Arthritis Take 1 tablet (10 mg total) by mouth daily 30 tablet 3 5 04/11/20 26 Active folic acid (FOLVITE) 1 mg tablet Take 1 tablet (1 mg total) by mouth daily 90 tablet 3 4 04/11/20 25 Discontinu ed(Reorder ) leflunomide (ARAVA) 10 mg tabletIndicatio ns:Rheumatoid Arthritis Take 1 tablet (10 mg total) by mouth daily 30 tablet 3 4 04/11/20 25 Discontinu ed(Reorder ) adalimumab (Humira,CF, Pen) 40 mg/0.4 mL pen injector kitIndications: Rheumatoid Arthritis Inject 0.4 mL (40 mg total) under the skin every 14 (fourteen) days 2 kit 5 4 04/11/20 25 Discontinu ed(Reorder ) Active Problems Problem Noted Date Diagnosed Date Immunosuppression due to drug therapy 10/07/2024 Assessment & Plan (10/07/2024 11:29 AM PARKING TECHNICIAN): Encourage routine vaccinations. Follow up with [...] 07/24/2023 Assessment & Plan (10/07/2024 11:29 AM PARKING TECHNICIAN): Long-term use of high-risk medication requiring regular monitoring. Labs ordered, no s/s of med tox or infection. Encouraged to work with PCP to make sure all recommended cancer screens and vaccinations are complete. Avoid live-vaccines unless reviewed with hospitality house supervisor first. Assessment & Plan (12/07/2023 10:51 AM PARKING TECHNICIAN): Long-term use of high-risk medication requiring regular monitoring. Labs ordered, no s/s of med tox or infection. Encouraged to work with PCP to make sure all recommended cancer screens and vaccinations are complete. Avoid live-vaccines unless reviewed with hospitality house supervisor first. Assessment & Plan (07/24/2023 12:36 PM CDT): Long-term use of high-risk medication requiring regular monitoring. Labs ordered, no s/s of med tox or infection. Encouraged to work with PCP to make sure all recommended cancer screens and vaccinations are complete. Avoid live-vaccines unless reviewed with hospitality house supervisor first. Discussed importance of avoiding repeated skin [...] arthritis Assessment & Plan (10/07/2024 11:29 AM PARKING TECHNICIAN): Stable on leflunomide and humira. Continue same. Labs today. Follow up in 6 months and prn. Assessment & Plan (12/07/2023 12:00 PM PARKING TECHNICIAN): Flare in hand symptoms while off [...] w/r/t gut microbiome. Referred to ADA and [employer] websites for additional information on topics [...] Encounters Date Type Department Care Team Description 03/24/2025 11:00 AM CDT Orders Only [address] [address] 03/17/2025 11:00 AM CDT Orders Only [address] [address] 03/10/2025 11:15 AM CDT Orders Only [address] [address] 03/03/2025 11:00 AM CDT Orders Only [address] [address] 02/27/2025 11:30 AM CDT Orders Only [address] [address] 02/27/2025 ACO Clinical Pharmacist [facility] Accountable Care Organization [address] [place] [address] Jinny Ly RPh 02/24/2025 10:45 AM CDT Orders Only [address] [address] 02/20/2025 11:00 AM CDT Orders Only [address] [address] 02/17/2025 7:45 AM CDT Orders Only [address] [address] from Last 3 Months Immunizations Immunization Administration [...] Other Medical polycystic ovar antonia disease; Comments: [facility] 07/17/2014 - Hx Other Medical sleep apnea; Co mments: [facility] 07/17/2014 - Hyperlipidemia Hyperlipidemia; Comments: [facility] 07/17/2014 - Hx Other Medical obesity; Commen ts: [facility] 07/17/2014 - Covid-19 12/2021 Rheumatoid arthritis (HCC) [...] on file Legal Sex Female 10:44 AM PARKING TECHNICIAN Gender Identity Not on file Sexual Orientation Not on file Obstetrics History Last Filed Vital Signs Vital Sign Reading Time Taken Comments Blood Pressure 112/60 01/03/2025 11:36 AM PARKING TECHNICIAN Pulse 60 01/03/2025 11:36 AM PARKING TECHNICIAN Temperature 36.3 C (97.4 F) 01/03/2025 11:36 AM PARKING TECHNICIAN Respiratory Rate 16 07/24/2024 3:35 PM CDT Oxygen Saturation 97% 01/03/2025 11: 36 AM PARKING TECHNICIAN Inhaled Oxygen Concentration - - Weight 126.1 kg (277 lb 14.4 oz) 2024 11:36 AM PARKING TECHNICIAN Height 165.1 cm (5' 5) 01/03/2025 11:3 6 AM PARKING TECHNICIAN Body Mass Index 46.24 01/03/2025 11:36 AM PARKING TECHNICIAN Plan of Treatment Health Maintenance Due Date Last Done Comments Albumin Creatinine Ratio, Urine 1958 Breast Cancer Screening-Mammogram 1958 Colon Cancer Screening-Colonoscopy 1958 Depression Screening 1958 Fall Risk Assessment 1958 Osteoporosis Screening-Bone Density Scan 1958 Dilated Eye Exam 1958 Foot Exam 1958 Hepatitis B Screening 1976 Pneumococcal vaccine 65+ (2 of 2 - PPSV23) 01/26/2017 12/01/2016 Lipid Panel 04/05/2020 04/05/2019, 0502/2018, 04/01/2016, Additional history exists Well Visit 65+ 2023 Covid-19 Vaccine (5 - 2023-2 5 season) 2024 10/07/2022, 11/15/2021, 03/16/2021, Additional history exists Hemoglobin A1C 08/03/2025 01/31/2025, 03/27, 03/30/2018 eGFR 01/03/2026 01/03/2025, 09/27, 02/27/2024, Additional history exists DTaP/Tdap/Td Vaccine (2 - Td or Tdap) 08/30/2031 08/30/2021, 10/18/1996 Hepatitis C Screening Completed 06/16/2021 Zoster Vaccine Completed 11/08/2021, 02/2021, 07/28/2021 Influenza Vaccine Completed 10/07/2024, , 11/08/2021, Additional history exists Procedures Procedure Name Priority Date/Time Associated Diagnosis Comments EGFR Routine 01/03/2025 12:41 PM PARKING TECHNICIAN Encounter for long-term (current) use of [...] Results * (ABNORMAL) eGFR (01/03/2025 12:41 PM PARKING TECHNICIAN) eGFR 57(L) >=60 mL/min/1. 73 m2 [...] reviewed 2021. Blood 01/03/2025 12:4 1 PM PARKING TECHNICIAN 01/03/2025 5:30 PM PARKING TECHNICIAN Anjali Mckeon MD LAB BLOOD ORDERABLES Final Result Performing Organization Address [facility] de Phone Number [facility] [address] [place] [address] * Hepatitis C antibody (06/16/2021 2:53 PM CDT) Hep C Ab Nonreactive Nonreactive [facility] Comment: Interpretive Data Nonreactive: Antibodies to HCV [...] 2:53 PM CDT 06/16/2021 5:54 PM CDT Result [facility] Elizabeth Devine MD LAB MICROBIOLOGY - GENERA L ORDERABLES Final Result Performing Organization Address [facility] de Phone Number [facility] [address] [place] [address] * (ABNORMAL) Lipid panel (04/05/2019 12:54 PM CDT) Cholesterol 114 30 - 199 mg/dL [facility] Comment: Interpretive Data Ages < or [...] revised on 2018. Triglycerides 151(H) <=149 mg/dL [facility] Comment: Interpretive Data Ages < or [...] Pediatrics 2011;128:S213 2. NCEP Expert Panel. Circulation 2003;110:227 Current Interpretive Data was last revised on 2018. HDL 39(L) >=40 mg/dL [facility] Comment: Interpretive Data Ages < or = 19 years Acceptable: >45 mg/dL Borderline low: 40-45 mg/dL Low: <40 mg/dL Ages > or = 20 years Desirable: >or= 60 mg/dL Low: <40 mg/dL Literature References: 1. Expert Panel on Integrated Guidelines for Cardiovascular Health and Risk Reduction in Children and Adolescents. Pediatrics 2011;128:S213 2. NCEP Expert Panel. Circulation 2003;110:227 Current Interpretive Data was last revised on 2018. LDL, calculated 45 <=129 mg/dL [facility] Comment: Interpretive Data Ages < or [...] on 2018. Non-HDL Cholesterol 75 mg/dL [facility] Comment: Interpretive Data Ages < or [...] last revised on 2018. Chol/HDL ratio [address] [facility] Blood specimen (specimen) 04/05/2019 12:54 PM CDT 04/05/2019 1:11 PM CDT Narrative [facility] - 04/05/2019 1:55 PM CDT Sourav Bolanos CIA AGENT LAB BLOOD ORDERABLES Final Result [facility] [address] [facility] [place] [address] from Last 3 Months or Most Recently Relevant to Health Maintenance Insurance [facility] CLAIMS [facility] MEDICARE ADVANTAGE [facility] MEDICARE Address: [address] [address] [place] [address] [facility] MEDICARE ADVANTAGE FOR LIFE Advance Directives For more information, please contact: [phone] Documents on File Type Date Recorded Patient Battery Tester Field Expl anation ADVANCE DIRECTIVE 07/05/2018 12:00 AM POWER OF AUDIO VISUAL ARTS DIRECTOR FINANCIAL/MEDICAL Care Teams Testing Manager Relationship Specialty Start Date End Date Gisela Bro MD PCP - General Family Medicine 02/27/24
--- OUTSIDE RECORDS SUMMARY | 2025-04-24 09:47 | XMS_ITS | Referral Summary ---
Author Organization [facility] Address [address] [place] [address] Care Team Providers Care Electromechanic Name Role Phone Gisela Bro MD Primary Care Provider Encounters Date Type Department Care Team Description 03/24/2025 11:00 AM CDT Orders Only [facility] [address] [place] [address] 03/17/2025 11:00 AM CDT Orders Only [facility] [address] [place] [address] 03/10/2025 11:15 AM CDT Orders Only [facility] [address] [place] [address] 03/03/2025 11:00 AM CDT Orders Only [facility] [address] [place] [address] 02/27/2025 ACO Clinical Pharmacist [facility] Accountable Care Organization [address] [place] [address] Jinny Ly [facility] 02/27/2025 11:30 AM CDT Orders Only [facility] [address] [address] 02/24/2025 10:45 AM CDT Orders Only [facility] [address] [place] [address] 02/20/2025 11:00 AM CDT Orders Only [facility] [address] [place] [address] 02/17/2025 7:45 AM CDT Orders Only [facility] [address] [place] [address] from Last 3 Months Allergies Active Allergy [...] 10/07/2024 Assessment & Plan (10/07/2024 11:29 AM MEDICAL AFFAIRS SPECIALIST): Encourage routine vaccinations. Follow up with PCP. [...] 07/24/2023 Assessment & Plan (10/07/2024 11:29 AM MEDICAL AFFAIRS SPECIALIST): Long-term use of high-risk medication requiring regular monitoring. Labs ordered, no s/s of med tox or infection. Encouraged to work with PCP to make sure all recommended cancer screens and vaccinations are complete. Avoid live-vaccines unless reviewed with seafood farmer first. Assessment & Plan (12/07/2023 10:51 AM MEDICAL AFFAIRS SPECIALIST): Long-term use of high-risk medication requiring regular monitoring. Labs ordered, no s/s of med tox or infection. Encouraged to work with PCP to make sure all recommended cancer screens and vaccinations are complete. Avoid live-vaccines unless reviewed with seafood farmer first. Assessment & Plan (07/24/2023 12:36 PM CDT): Long-term use of high-risk medication requiring regular monitoring. Labs ordered, no s/s of med tox or infection. Encouraged to work with PCP to make sure all recommended cancer screens and vaccinations are complete. Avoid live-vaccines unless reviewed with seafood farmer first. Discussed importance of avoiding repeated skin [...] arthritis Assessment & Plan (10/07/2024 11:29 AM MEDICAL AFFAIRS SPECIALIST): Stable on leflunomide and humira. Continue same. Labs today. Follow up in 6 months and prn. Assessment & Plan (12/07/2023 12:00 PM MEDICAL AFFAIRS SPECIALIST): Flare in hand symptoms while off humira [...] w/r/t gut microbiome. Referred to ADA and [employer] websites for additional information on topics including [...] on file Legal Sex Female 10:44 AM MEDICAL AFFAIRS SPECIALIST Gender Identity Not on file Sexual Orientation Not on file Last Filed Vital Signs Vital Sign Reading Time Taken Comments Blood Pressure 112/60 01/03/2025 11:36 AM MEDICAL AFFAIRS SPECIALIST Pulse 60 01/03/2025 11:36 AM MEDICAL AFFAIRS SPECIALIST Temperature 36.3 C (97.4 F) 01/03/2025 11:36 AM MEDICAL AFFAIRS SPECIALIST Respiratory Rate 16 07/24/2024 3:35 PM CDT Oxygen Saturation 97% 01/03/2025 11: 36 AM MEDICAL AFFAIRS SPECIALIST Inhaled Oxygen Concentration - - Weight 126.1 kg (277 lb 14.4 oz) 2024 11:36 AM MEDICAL AFFAIRS SPECIALIST Height 165.1 cm (5' 5) 01/03/2025 11:3 6 AM MEDICAL AFFAIRS SPECIALIST Body Mass Index 46.24 01/03/2025 11:36 AM MEDICAL AFFAIRS SPECIALIST Plan of Treatment Not on file Procedures Procedure Name Priority Date/Time Associated Diagnosis Comments EGFR Routine 01/03/2025 12:41 PM MEDICAL AFFAIRS SPECIALIST Encounter for long-term (current) use of high-risk [...] Results * (ABNORMAL) eGFR (01/03/2025 12:41 PM MEDICAL AFFAIRS SPECIALIST) eGFR 57(L) >=60 mL/min/1. 73 m2 Comment: [...] reviewed 2021. Blood 01/03/2025 12:4 1 PM MEDICAL AFFAIRS SPECIALIST 01/03/2025 5:30 PM MEDICAL AFFAIRS SPECIALIST us Anjali Mckeon MD LAB BLOOD ORDERABLES Final Result Performing Organization Address [facility] Co de Phone Number [facility] [address] [facility] [place] [address] * Hepatitis C antibody (06/16/2021 2:53 PM CDT) Hep C Ab Nonreactive Nonreactive [facility] Comment: Interpretive Data Nonreactive: Antibodies [...] L ORDERABLES Final Result Performing Organization Address [facility] Co de Phone Number [facility] [address] [place] [address] * (ABNORMAL) Lipid panel (04/05/2019 12:54 PM CDT) Pathologist [facility] Cholesterol 114 30 - 199 mg/dL [facility] Comment: Interpretive Data Ages < or = [...] on 2018. Triglycerides 151(H) <=149 mg/dL [facility] Comment: Interpretive Data Ages < or = [...] on 2018. HDL 39(L) >=40 mg/dL [facility] Comment: Interpretive Data Ages < or = [...] 2018. LDL, calculated 45 <=129 mg/dL [facility] Comment: Interpretive Data Ages < or = [...] on 2018. Non-HDL Cholesterol 75 mg/dL [facility] Comment: Interpretive Data Ages < or = [...] last revised on 2018. Chol/HDL ratio 3 [facility] Blood specimen (specimen) 04/05/2019 12:54 PM CDT 04/05/2019 1:11 PM CDT Narrative [facility] - 04/05/2019 1:55 PM CDT Sourav Bolanos NP LAB BLOOD ORDERABLES Final Result [facility] One [facility] Department [place] [address] from Last 3 Months or Most Recently Relevant to Health Maintenance Insurance [facility] CLAIMS [facility] MEDICARE ADVANTAGE [facility] MEDICARE Address: [address] [address] [place] [address] [facility] MEDICARE ADVANTAGE [facility] MEDICARE Address: [facility] [address] [place] [address] FOR LIFE Advance Directives For more information, please contact: [phone] Documents on File Type Date Recorded Patient Systems Software Specialist Expl anation ADVANCE DIRECTIVE 07/05/2018 12:00 AM POWER OF ASSOCIATE DIRECTOR FINANCE FINANCIAL/MEDICAL Care Teams Electromechanic Relationship Specialty Start Date End Date Gisela Bro MD PCP - General Family Medicine 02/27/24
--- OUTSIDE RECORDS SUMMARY | 2025-04-24 09:47 | XMS_ITS | Encounter Summary ---
Author Organization [facility] Care Team Providers Care Revenue Specialist Name Role Phone Tomi Gomez MD Primary Care Provider + [phone] Sydni Spencer MD Primary Care Provider + [phone] Unknown, Notinfile Primary Care Provider Unavail able Merrill Mederos MD Primary Care Provider [phone] Gisela Bro MD Primary Care Provider + [phone] Encounter Details Date Type Department Care Team (Latest Contact Info) Description 07/05/2018 Orders Only [facility] ProviderYoanna MD [address] [place] [id number] Social History Tobacco Use Types Packs/Day Years Used Date Smoking Tobacco: Former Smokeless Tobacco: Never Comments:Smoking History Pac ks/day: 2 Cigarettes Alcohol Use Standard Drinks/Week Comments No 0 (1 standard drink = 0.6 oz pur e alcohol) Comments Unknown Sex and Gender Information Value Date Recorded Sex Assigned at Not on file Legal Sex Female 10:44 AM QUALITY ASSURANCE ADVISOR Gender Identity Not on file Sexual Orientation [...] AM CDT Ordered by an unspecified provider. 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
--- OUTSIDE RECORDS SUMMARY | 2025-04-24 09:47 | XMS_ITS | Clinical Summary ---
Author Organization [facility] Address [address] [place] [address] Phone Care Team Providers Care Manager Of Operations Name Role Phone Gisela Bro MD Primary Care Provider [phone] Allergies No known active allergies Medications atorvastatin (LIPITOR) 20 mg tablet Take 20 mg by mouth daily. 2 Active chlorthalidone (HYGROTON) 25 mg tablet Take 25 mg by mouth daily. 2 Active cholecalciferol , Vitamin D3, 125 mcg [...] TWICE DAILY WHILE BRUSHING 2 Active adalimumab (HUMIRA) 40 mg/0.8 mL Syringe Kit Inject 40 mg by subcutaneous injection. Active empagliflozin (Jardiance) 10 mg tablet Take 10 mg by mouth. 5 Active escitalopram oxalate (LEXAPRO) 10 mg tablet Take 10 mg by mouth. 3 Active losartan (COZAAR) 100 mg tablet Take 100 mg by mouth. 3 Active leflunomide (ARAVA) 10 mg tablet Take 10 mg by mouth daily. 4 10/07/20 25 Active Active Problems Patient Care Coordination No te Formatting of this note migh t be different from the original. Primary Care: Tomi Gomez MD Referring Provider: Tomi Gomez [address] [place] [address] Other: Chirstina Janet Problem Noted Date Diagnosed Date Labial abscess 01/31/2025 RABIA (acute kidney injury) 01/31/2025 Immunosuppressed status 01/31/2025 Groin abscess 01/31/2025 Breast lump 04/05/2010 PCOS (polycystic ovarian syndrome) HTN (hypertension) Acid reflux Type 2 diabetes mellitus wit hout complication, without long-term current use of insulin Sleep apnea Restless leg Encounters Date Type Department Care Team Description 04/08/2025 External Device Data [facility] Provider, Abstract 04/08/2025 External Device Data [facility] Provider, Abstract 03/25/2025 External Device Data [facility] Provider, Abstract 03/04/2025 External Device Data [facility] Provider, Abstract 03/04/2025 External Device Data [facility] Provider, Abstract 02/25/2025 External Device Data [facility] Provider, Abstract 02/04/2025 External Device Data [facility] Provider, Abstract 02/04/2025 External Device Data [facility] Provider, Abstract 02/04/2025 External Device Data [facility] Provider, Abstract 02/03/2025 External Device Data [facility] Provider, Abstract 02/03/2025 External Device Data [facility] Provider, Abstract 02/01/2025 External Device Data [facility] Provider, Abstract 01/31/2025 12:58 AM SHOT EXAMINER Anesthesia Event [facility] Operating Room [address] [place] [address] Cas Roche MD 01/31/2025 12:20 AM SHOT EXAMINER - 01/31/2025 1:58 AM SHOT EXAMINER Surgery [facility] Operating Room [address] [place] [address] Zbigniew Redd MD GROIN EXPLORATION 01/31/2025 External Device Data [facility] Provider, Abstract 01/30/2025 11:17 PM SHOT EXAMINER - 02/03/2025 4:49 PM CDT Hospital Encounter [facility] Medical Surgical [address] [place] [address] [place] Gomez MD Shaikh, Abid Ali, DO Mutungi, Peninnah, MD Aqeel, Anam, MD Labial abscess Discharge Disposition: Home Health Care Svc 01/30/2025 Travel 01/28/2025 External Device Data [facility]STRACTION Provider, [...] = 0.6 oz pur e alcohol) rarely Feeling Safe Answer Date Recorded Are you in a relationship wi th someone who hurts you emotionally and/or physically? No 01/31/2025 Food Insecurity Answer Date Recorded Patient needs follow up regardin 03/25/2025 Transportation Needs Answer Date Record ed Patient needs follow up regardin 03/25/2025 Housing Stability Answer Date Recorded Social/Environmental Concerns No concerns Utility Needs Answer Date Recorded Patient needs follow up regardin 03/25/2025 Comments Unknown Sex and Gender Information Value Date Recorded Sex Assigned at Not on file Legal Sex Female 5:53 AM SHOT EXAMINER Gender Identity Not on file Sexual Orientation Not on file Last Filed Vital Signs Vital Sign Reading Time Taken Comments Blood Pressure 150/47 02/03/2025 7:15 AM CDT Pulse 59 02/03/2025 7:15 AM CDT Temperature 36.4 C (97.5 F) 02/03/2025 7:15 AM CDT Respiratory Rate 18 02/03/2025 7:15 AM CDT Oxygen Saturation 96% 02/03/2025 7:15 AM CDT Inhaled Oxygen Concentration - - Weight 128.8 kg (284 lb) 01/30/2025 11:19 PM SHOT EXAMINER Height 170.2 cm (5' 7) 01/30/2025 11:19 PM SHOT EXAMINER Body Mass Index 44.48 01/30/2025 11:19 PM SHOT EXAMINER Plan of Treatment Health Maintenance Due Date [...] 2018 DIABETES ANNUAL FOOT EXAM 01/23/2019 01/23/2018 OSTEOPOROSIS SCREENING 2023 COVID-19 Vaccine (5 - 2023-2 5 season) 2024 10/07/2022, 11/15/2021, 03/16/2021, Additional history exists DIABETES HBA1C Q 6 MONTHS 08/03/20252024, 03/01/2023, 04/05/2019 DTAP/TDAP/TD VACCINES (2 - T d or Tdap) 08/30/2031 08/30/2021 ZOSTER VACCINE Completed 11/08/2021, 02/2021, 07/28/2021 INFLUENZA VACCINE Completed 10/07/2024, , 11/08/2021, Additional history exists Procedures Procedure Name Priority Date/Time Associated Diagnosis Comments POC GLUCOSE Routine 02/03/2025 11:44 AM CDT POC GLUCOSE Routine 02/03/2025 7:43 AM CDT CBC WITHOUT DIFFERENTIAL Routine 02/03/2025 4:01 AM CDT BASIC METABOLIC PANEL Routine 02/03/2025 4:01 AM CDT POC GLUCOSE Routine 02/02/2025 5:46 PM CDT POC GLUCOSE Routine 02/02/2025 8:28 AM CDT CBC WITHOUT DIFFERENTIAL Routine 02/02/2025 6:24 AM CDT BASIC METABOLIC PANEL Routine 02/02/2025 6:24 AM CDT POC GLUCOSE Routine 02/01/2025 7:49 PM SHOT EXAMINER BASIC METABOLIC PANEL Routine 02/01/2025 5:49 PM SHOT EXAMINER POC GLUCOSE Routine 02/01/2025 4:44 PM SHOT EXAMINER POC GLUCOSE Routine 02/01/2025 12:26 PM SHOT EXAMINER POC GLUCOSE Routine 02/01/2025 8:08 AM SHOT EXAMINER MAGNESIUM LEVEL Routine 02/01/2025 6:40 AM SHOT EXAMINER PHOSPHORUS Routine 02/01/2025 6:40 AM SHOT EXAMINER COMPREHENSIVE METABOLIC PANEL Routine 02/01/2025 6:40 AM SHOT EXAMINER CBC WITH DIFFERENTIAL Routine 02/01/2025 6:40 AM SHOT EXAMINER POC GLUCOSE Routine 01/31/2025 8:09 PM SHOT EXAMINER POC GLUCOSE Routine 01/31/2025 5:38 PM SHOT EXAMINER POC GLUCOSE Routine 01/31/2025 12:53 PM SHOT EXAMINER POC GLUCOSE Routine 01/31/2025 9:47 AM SHOT EXAMINER HEMOGLOBIN A1C Routine 01/31/2025 7:01 AM SHOT EXAMINER COMPREHENSIVE METABOLIC PANEL Routine 01/31/2025 7:01 AM SHOT EXAMINER CBC WITH DIFFERENTIAL Routine 01/31/2025 7:01 AM SHOT EXAMINER POC GLUCOSE Routine 01/31/2025 2:11 AM SHOT EXAMINER ANAEROBIC/AEROBIC CULTURE W GRAM STAIN Routine 01/31/2025 1:18 AM SHOT EXAMINER EKG 12-LEAD Stat 01/31/2025 12:33 AM SHOT EXAMINER GA EXPL RETROPERITONEUM W/WO BX SPX 01/31/2025 12:20 AM SHOT EXAMINER Necrotizing fascitis Special Needs lithotomy TYPE AND SCREEN Stat 01/31/2025 12:03 AM SHOT EXAMINER COMPREHENSIVE METABOLIC PANEL Stat 01/31/2025 12:03 AM SHOT EXAMINER PROTIME-INR Stat 01/31/2025 12:03 AM SHOT EXAMINER CBC WITH DIFFERENTIAL Stat 01/31/2025 12:03 AM SHOT EXAMINER LACTIC ACID Stat 01/31/2025 12:[address] PRIOR STUDY Routine 01/30/2025 7:50 PM SHOT EXAMINER MAMMO SCREEN BILAT W OR WO CAD Routine 04/05/2010 from Last 3 Months or Most Recently Relevant to Health Maintenance Results * (ABNORMAL) POC GLUCOSE (02/03/2025 11:44 AM CDT) Only the most recent of13 resultswithin the time period is included. Pathologist [facility] GLUCOSE POC 134(H) 74 - 99 mg/dL 02/03/2025 11:44 AM CDT [facility] POINT OF CARE SPECIMEN SOURCE, GLUCOSE POC Whole Blood 02/03/2025 11:44 AM CDT [facility] POINT OF CARE Blood, whole 02/03/2025 11:4 4 AM CDT 02/03/2025 11:51 AM CDT Dev Ruiz MD POINT OF CARE TESTING Final Result [facility] POINT OF CARE CLIA # [id number] [place] [address] * (ABNORMAL) CBC WITHOUT DIFFERENTIAL (02/03/2025 4:01 AM CDT) Only the most recent of2 resultswithin the time period is included. [facility] WBC 7.3 4.0 - 9.8 K/uL 02/03/2025 5:44 AM CDT [facility] RBC 3.88(L) 3.90 - 4.90 M/uL 02/03/2025 5:44 AM CDT [facility] HEMOGLOBIN 11.3(L) 11.8 - 14.8 g/dL 02/03/2025 5:44 AM CDT [facility] HEMATOCRIT 35.2(L) 35.5 - 44.0 % 02/03/2025 5:44 AM CDT [facility] MCV 90.7 82.0 - 99.0 fL 02/03/2025 5:44 AM CDT [facility] MCH 29.1 27.2 - 32.6 pg 02/03/2025 5:44 AM CDT [facility] MCHC 32.1 31.5 - 35.5 g/dL 02/03/2025 5:44 AM CDT [facility] PLATELETS 236 140 - 350 K/uL 02/03/2025 5:44 AM CDT [facility] MPV 8.9(L) 9.3 - 12.4 fL 02/03/2025 5:[address] [facility] RDW 13.7 11.5 - 14.5 % 02/03/2025 5:[address] [facility] RDW-STDEV 45.9 37.1 - 48.7 fL 02/03/2025 5:[address] [facility] Blood Venipuncture / Unknown 02/03/2025 4:01 AM CDT 02/03/2025 5:13 AM CDT us Melida BASURTO HEMATOLOGY ORDERABLES F inal Result [facility] CLIA# [id number] [place] [address] * (ABNORMAL) BASIC METABOLIC PANEL (02/03/2025 4:01 AM CDT) Only the most recent of3 resultswithin the time period is included. SODIUM 136 136 - 145 mmol/L 02/03/2025 5:[address] [facility] POTASSIUM 3.2(L) 3.4 - 5.1 mmol/L 02/03/2025 5:[address] [facility] CHLORIDE 102 98 - 107 mmol/L 02/03/2025 5:[address] [facility] CO2 24 22 - 29 mmol/L 02/03/2025 5:[address] [facility] CALCIUM 9.1 8.6 - 10.4 mg/dL 02/03/2025 5:[address] [facility] BUN 25(H) 6 - 20 mg/dL 02/03/2025 5:[address] [facility] CREATININE 1.10(H) 0.51 - 0.95 mg/dL 02/03/2025 5:[address] [facility] GLUCOSE 94 74 - 99 mg/dL 02/03/2025 5:[address] [facility] GFR 55(L) >=60 mL/min/1.7 3 sq meter 02/03/2025 5:[address] [facility] Comment:eGFR calculated with 2020 CKD-EPI equation. Vegetarian diet, extremely high or low muscle mass, and may affect results. Cystatin C with Glomerular Filtration Rate is a suitable alternative for these patients. ANION GAP 10 8 - 16 mmol/L 02/03/2025 5:[address] [facility] Blood Venipuncture / Unknown 02/03/2025 4:01 AM CDT 02/03/2025 5:17 AM CDT Melida BASURTO CHEMISTRY ORDERABLES Fi nal Result [facility] CLIA# [id number] [address] [place] [address] * (ABNORMAL) CBC WITH DIFFERENTIAL (02/01/2025 6:40 AM SHOT EXAMINER) Only the most recent of3 resultswithin the time period is included. WBC 10.8(H) 4.0 - 9.8 K/uL 02/01/2025 7:24 AM [facility] RBC 4.18 3.90 - 4.90 M/uL 02/01/2025 7:24 AM [facility] HEMOGLOBIN 12.3 11.8 - 14.8 g/dL 02/01/2025 7:24 AM [facility] HEMATOCRIT 37.5 35.5 - 44.0 % 02/01/2025 7:24 AM [facility] MCV 89.7 82.0 - 99.0 fL 02/01/2025 7:24 AM [facility] MCH 29.4 27.2 - 32.6 pg 02/01/2025 7:24 AM [facility] MCHC 32.8 31.5 - 35.5 g/dL 02/01/2025 7:24 AM [facility] RDW 13.8 11.5 - 14.5 % 02/01/2025 7:24 AM [facility] RDW-STDEV 45.6 37.1 - 48.7 fL 02/01/2025 7:24 AM [facility] PLATELETS 209 140 - 350 K/uL 02/01/2025 7:24 AM [facility] MPV 8.9(L) 9.3 - 12.4 fL 02/01/2025 7:24 AM [facility] NEUTROPHILS 65 % 02/01/2025 7:24 AM [facility] LYMPHOCYTES 20 % 02/01/2025 7:24 AM [facility] MONOCYTES 9 % 02/01/2025 7:24 AM [facility] EOSINOPHILS 4 % 02/01/2025 7:24 AM [facility] BASOPHILS 1 % 02/01/2025 7:24 AM [facility] IMMATURE GRANULOCYTES 2 % 02/01/2025 7:24 AM [facility] Comment:IG (Immature Granulo cyte) count includes Metamyelocytes, Myelocytes, and Promyelocytes NEUTROPHIL ABSOLUTE 7.05(H) 1.90 - 7.00 K/uL 02/01/2025 7:24 AM [facility] LYMPHOCYTE ABSOLUTE 2.13 0.70 - 4.50 K/uL 02/01/2025 7:24 AM [facility] MONOCYTE ABSOLUTE 0.99 0.10 - 1.30 K/uL 02/01/2025 7:24 AM [facility] EOSINOPHIL ABSOLUTE 0.38 0.00 - 0.70 K/uL 02/01/2025 7:24 AM [facility] BASOPHILS ABSOLUTE 0.05 0.00 - 0.20 K/uL 02/01/2025 7:24 AM [facility] IMMATURE GRANULOCYTES ABSOLUTE 0.17(H) 0.00 - 0.03 K/uL 02/01/2025 7:24 AM SHOT EXAMINER [facility] [employer] [facility] Blood Venipuncture / Unknown 02/01/2025 6:40 AM SHOT EXAMINER 02/01/2025 7:24 AM SHOT EXAMINER Moris Montano DO HEMATOLOGY ORDERABLES Final R esult [facility] CLIA# [id number] [place] [address] * PHOSPHORUS (02/01/2025 6:40 AM SHOT EXAMINER) PHOSPHORUS 2.9 2.5 - 4.5 mg/dL 02/01/2025 9:04 AM SHOT EXAMINER [facility] Blood Venipuncture / Unknown 02/01/2025 6:40 AM SHOT EXAMINER 02/01/2025 7:21 AM SHOT EXAMINER Result [facility] Melidajoslyn Ray PA CHEMISTRY ORDERABLES Fi nal Result Performing Organization Address City/[facility]/ZIP Co de Phone Number [facility] CLIA# [id number] [place] [address] * MAGNESIUM LEVEL (02/01/2025 6:40 AM SHOT EXAMINER) MAGNESIUM 2.0 1.6 - 2.6 mg/dL 02/01/2025 9:04 AM SHOT EXAMINER [facility] [employer] [facility] Blood Venipuncture / Unknown 02/01/2025 6:40 AM SHOT EXAMINER 02/01/2025 7:21 AM SHOT EXAMINER Melida Mercedes [place] PA CHEMISTRY ORDERABLES Fi nal Result [facility] CLIA# [id number] [place] [address] * (ABNORMAL) COMPREHENSIVE METABOLIC PANEL (02/01/2025 6:40 AM SHOT EXAMINER) Only the most recent of3 resultswithin the time period is included. SODIUM 134(L) 136 - 145 mmol/L 02/01/2025 7:51 AM [facility] POTASSIUM 2.8(L) 3.4 - 5.1 mmol/L 02/01/2025 7:51 AM [facility] CHLORIDE 100 98 - 107 mmol/L 02/01/2025 7:51 AM [facility] CO2 20(L) 22 - 29 mmol/L 02/01/2025 7:51 AM [facility] CALCIUM 8.7 8.6 - 10.4 mg/dL 02/01/2025 7:51 AM [facility] BUN 22(H) 6 - 20 mg/dL 02/01/2025 7:51 AM [facility] CREATININE 1.22(H) 0.51 - 0.95 mg/dL 02/01/2025 7:51 AM [facility] GLUCOSE 118(H) 74 - 99 mg/dL 02/01/2025 7:51 AM [facility] TOTAL PROTEIN 6.1(L) 6.3 - 8.7 g/dL 02/01/2025 7:51 AM [facility] ALBUMIN 2.7(L) 3.5 - 5.2 g/dL 02/01/2025 7:51 AM [facility] BILIRUBIN TOTAL 0.4 0.2 - 1.1 mg/dL 02/01/2025 7:51 AM [facility] ALKALINE PHOSPHATASE 85 40 - 150 U/L 02/01/2025 7:51 AM [facility] AST 27 0 - 33 U/L 02/01/2025 7:51 AM [facility] ALT 23 0 - 33 U/L 02/01/2025 7:51 AM [facility] GFR 49(L) >=60 mL/min/1.7 3 sq meter 02/01/2025 7:51 AM [facility] [employer] [facility] Comment:eGFR calculated with 2020 CKD-EPI equation. Vegetarian diet, extremely high or low muscle mass, and may affect results. Cystatin C with Glomerular Filtration Rate is a suitable alternative for these patients. ANION GAP 14 8 - 16 mmol/L 02/01/2025 7:51 AM SHOT EXAMINER [facility] Blood Venipuncture / Unknown 02/01/2025 6:40 AM SHOT EXAMINER 02/01/2025 7:21 AM SHOT EXAMINER Moris Montano DO CHEMISTRY ORDERABLES Final Re sult [facility] CLIA# [id number] [address] [place] [address] * HEMOGLOBIN A1C (01/31/2025 7:01 AM SHOT EXAMINER) HEMOGLOBIN A1C 5.6 <=5.6 % 01/31/2025 10:50 PM [facility] [employer] [facility] EST. AVG GLUCOSE, A1C 114 mg/dL 01/31/2025 10:50 PM [facility] Blood Venipuncture / Unknown 01/31/2025 7:01 AM SHOT EXAMINER 01/31/2025 7:57 AM SHOT EXAMINER Narrative [facility] - 01/31/2025 10:50 PM SHOT EXAMINER HGB A1C INTERPRETATION NORMAL: <5.7% PRE-DIABETES: 5.7 - 6.4% DIABETES: 6.5% OR GREATER Monica Charles [employer] CHEMISTRY ORDERABLES Final Resu lt [facility] CLIA# [id number] [place] [address] * (ABNORMAL) ANAEROBIC/AEROBIC CULTURE W GRAM STAIN (01/31/2025 1:18 AM SHOT EXAMINER) CULTURE ACTINOMYCES(A ) 02/05/2025 7:34 AM [facility] CULTURE 3 to 4+ or numerous Multiple Anaerobes Present(A) 02/05/2025 7:34 AM [facility] Comment:Anaerobe therapy rec ommendation: metronidazole. Alternatively: ampicillin/sulbactam or clindamycin. GRAM STAIN 4+ (Heavy) Gram negative rods 02/05/2025 7:34 AM [facility] GRAM STAIN 4+ (Heavy) Gram positive cocci 02/05/2025 7:34 AM [facility] GRAM STAIN 2+ (Few) Gram positive rods 02/05/2025 7:34 AM [facility] GRAM STAIN No WBC observed 02/05/2025 7:34 AM [facility] Tissue (Groin, right) Collection / Unknown 01/31/2025 1:18 AM SHOT EXAMINER 01/31/2025 7:30 AM SHOT EXAMINER Comment:Right groin Zbigniew Redd MD MICROBIOLOGY - GENERAL AYDE GARG Final Result [facility]# [id number] [address] [place] [address] * EKG 12-LEAD (01/31/2025 12:33 AM SHOT EXAMINER) 01/31/2025 12:3 3 AM SHOT EXAMINER Narrative INTERFACE SYSTEM - 01/31/2025 7:41 AM SHOT EXAMINER [address] [address] Test Date: 2025-01-31 Pat Name: BARBY OLIVEIRA Department: 90 Room: 5318 Gender: Female 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: : 1960 Requested By: [place] GOMEZ Order Number: [id number] Heron MD: Edson Lo Measurements Intervals [place] Rate: 67 P: 58 GA: 200 QRS: 103 QRSD: 160 T: -5 QT: 454 QTc: 479 Interpretive Statements Normal sinus rhythm Right bundle branch block Inferior infarct, age undetermined Nonspecific T wave abnormality Abnormal ECG No previous ECG available for comparison Electronically Signed On 01-31-2025 7:41:40 SHOT EXAMINER by Edson Lo Procedure Note Edson Lo MD - 01/31/2025 [facility] [place] [address] [place] [address] Test Date: 2025-01-31 Pat Name: BARBY OLIVEIRA Department: 90 Room: 53 Gender: Female 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: : 1960 Requested By: [place] GOMEZ Order Number: [id number] Reading MD: Edson Lo Measurements Intervals [place] Rate: 67 P: 58 GA: 200 QRS: 103 QRSD: 160 T: -5 QT: 454 QTc: 479 Interpretive Statements Normal sinus rhythm Right bundle branch block Inferior infarct, age undetermined Nonspecific T wave abnormality Abnormal ECG No previous ECG available for comparison Electronically Signed On 01-31-2025 7:41:40 SHOT EXAMINER by Edson Lo us Cas Roche MD ECG ORDERABLES Final Result INTERFACE SYSTEM Refer to clinic/hospital department * LACTIC ACID (01/31/2025 12:03 AM SHOT EXAMINER) [facility] LACTIC ACID 1.2 <=2.0 mmol/L 01/31/2025 1:11 AM SHOT EXAMINER [facility] Blood Venipuncture / Unknown 01/31/2025 12:03 AM SHOT EXAMINER 01/31/2025 12:12 AM SHOT EXAMINER us [place] Gomez MD CHEMISTRY ORDERABLES Final Resu lt [facility] CLIA# [id number] [place] [address] * (ABNORMAL) PROTIME-INR (01/31/2025 12:03 AM SHOT EXAMINER) PROTIME 16.8(H) 11.5 - 14.7 Seconds 01/31/2025 12:33 AM SHOT EXAMINER [facility] INR 1.3(H) 0.9 - 1.1 01/31/2025 12:33 AM SHOT EXAMINER [facility] Blood Venipuncture / Unknown 01/31/2025 12:03 AM SHOT EXAMINER 01/31/2025 12:13 AM SHOT EXAMINER [place] Gomez MD HEMATOLOGY ORDERABLES Final Res ult [facility] CLIA# [id number] [address] [place] [address] * TYPE AND SCREEN (01/31/2025 12:03 AM SHOT EXAMINER) ABO GROUP A 01/31/2025 1:20 AM SHOT EXAMINER [facility] RH (D) TYPE Positive 01/31/2025 1:20 AM SHOT EXAMINER [facility] ANTIBODY SCREEN Negative 01/31/2025 1:20 AM SHOT EXAMINER [facility] Blood Venipuncture / Unknown 01/31/2025 12:03 AM SHOT EXAMINER 01/31/2025 12:10 AM SHOT EXAMINER [place] Gomez MD BLOOD BANK ORDERABLES Edited Re sult - Final Performing Organization Address City/[facility]/ZIP Co de Phone Number [facility] CLIA# [id number] [place] [address] * CT PRIOR STUDY (01/30/2025 7:50 PM SHOT EXAMINER) Narrative [facility] POINT OF CARE - 01/30/2025 11:33 PM SHOT EXAMINER This exam was auto finalized to allow images to be scanned to PACS. External Provider [facility] CT ORDERABLES Final Res ult [facility] POINT OF CARE CLIA # [id number] [place] [address] * MAMMO DIGITAL SCREEN BILAT (04/05/2010) Anatomical Region Laterality Modality Breast Bilateral Other Milli Schultz MD MAMMO ORDERABLES Final Resul t from Last 3 Months or Most Recently Relevant to Health Maintenance Insurance [facility] [id number] [email or web address] [facility] [id number] [employer] Advance Directives For more information, please contact: [phone] * Full Code (Latest Code Status on File) Date Activated Date Inactivated Comments 01/31/2025 8:35 AM 02/03/2025 7:00 PM * Default Full Code - Needs Discussion Date Activated Date Inactivated Comments 01/30/2025 11:51 PM 01/31/2025 8:35 AM Care Teams Manager Of Operations Relationship Specialty Start Date End Date Gisela Bro MD [address] [place] [phone] PCP - General Family Practice 11/05/24
--- OUTSIDE RECORDS SUMMARY | 2025-04-24 09:47 | XMS_ITS | Encounter Summary ---
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
--- OUTSIDE RECORDS SUMMARY | 2025-04-24 09:47 | XMS_ITS | Encounter Summary ---
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
[2025-04-24 10:12] LABS: Basophils Percent Auto 0.5 % (0.2-1.2); Eosinophils Absolute Auto 0.2 K/mm3 (0-0.3); Hematocrit 45.3 % (37.0-47.0); Hemoglobin 14.5 g/dL (12.0-15.0); Immature Granulocyte Absolute 0.02 K/mm3 (0.00-0.031); Immature Granulocyte Percent A 0.3 % (0-0.5); Lymphocytes Absolute Auto 3.02 K/mm3 (0.9-3.2); Lymphocytes Percent Auto 38.2 % (18.3-44.2); Mean Corpuscular Hemoglobin 29.5 pg (26-34); Mean Corpuscular Volume 92.1 fl (80-100); Mean Platelet Volume 8.7 fl (7.4-10.4); Monocytes Absolute Auto 0.7 K/mm3 (0.1-0.6); Monocytes Percent Auto 9.2 % (2.6-8.5); Neutrophils Absolute Auto 3.9 K/mm3 (1.3-6.7); Neutrophils Percent Auto 48.8 % (45.5-73.1); Platelet Count Result 186 k/mm3 (150-375); Red Blood Count 4.92 M/mm3 (4.2-5.4); Red Cell Distribution Width 14.1 % (11.5-14.5); White Blood Count 7.9 K/mm3 (4.5-10.0)
[2025-04-24 10:25] LABS: Phosphorus 3.6 mg/dL (2.5-4.5)
[2025-04-24 10:26] LABS: Alanine Aminotransferase 34 U/L (6-35); Albumin Level 4.4 g/dL (3.5-5.1); Alkaline Phosphatase 72 U/L (38-126); Anion Gap 7 mmol/L (4-12); Aspartate Amino Transferase 40 U/L (14-36); Bilirubin,Total 1.3 mg/dL (0.2-1.3); Blood Urea Nitrogen 27 mg/dL (7-17); Calcium 9.6 mg/dL (8.4-10.2); Carbon Dioxide 28 mmol/L (22-30); Chloride 103 mmol/L (98-107); Estimated Glomerular Filt Rate 48; Glucose 104 mg/dL (65-110); Sodium 138 mmol/L (137-145)
[2025-04-24 10:37] LABS: Parathyroid Intact 66.1 pg/mL (14.5-75.2)
[2025-04-24 10:57] LABS: Creatinine Urine 120.6 mg/dL; Total Protein Urine Random 8 mg/dL; Ur Ttl Prot Creatinine Ratio 0.07 mg/mg (0-0.20)
[2025-04-24 11:12] LABS: Hemoglobin A1C 5.4 % (<5.7)
== END 2025-04-24 09:42 | disposition home or self-care (01) ==
LOC: ANHLAB 09:43
PROVIDERS: PCP Family Medicine; Referring Provider Student in an Organized Health Care Education/Training Program; Visit Provider Internal Medicine Nephrology
DX: R94.4 Abnormal results of kidney function studies (principal); E11.9 Type 2 diabetes mellitus without complications; I10 Essential (primary) hypertension; E78.5 Hyperlipidemia, unspecified; E87.6 Hypokalemia; D72.829 Elevated white blood cell count, unspecified
CPT/HCPCS: 36415; 80053; 82570; 83036; 83970; 84100; 84156; 85025

== ENCOUNTER 2025-10-24 08:04 | Outpatient (CLI) | payer MEDICARE, OTHER, SELFPAY ==
--- OUTSIDE RECORDS SUMMARY | 2025-10-24 08:09 | XMS_ITS | Clinical Summary ---
Author Organization [facility] Address [facility] [place] [address] Care Team Providers Care Contact Agent Name Role Phone Merrill Mederos MD Primary [...] Hypokalemia 02/06/2023 Stage 3a chronic kidney disease 04/07/2022 Type 2 diabetes mellitus wit h stage 3a chronic kidney disease, with long-term current use of insulin 04/07/2022 Primary hypertension 04/07/2022 Immunizations Immunization Administration Dates Next Due Influenza (Generic) 08/21/2014 [...] 1:37 PM CDT Height 170.2 cm (5' 7) 02/06/2023 1:37 PM CDT Body Mass Index 50.9 02/06/2023 1:37 PM CDT Plan of Treatment Health Maintenance Due Date Last Done Comments Colorectal Cancer Screening Colonoscopy (10 Years) 1958 Kidney Health Evaluation 1958 Lipid Panel 1958 Diabetes: Retinopathy Eye Exam 1976 Hepatitis C 1976 DTaP, Tdap and Td Vaccines (1 - Tdap) 1977 Mammogram Screening 1998 Pneumococcal Vaccine: 50+ Years (2 of 2 - PPSV23, PCV20, or PCV21) 01/26/2017 12/01/2016 RSV Immunization or 60+ Years (1 - Risk 60-74 years 1-dose series) 2018 Zoster Vaccines (2 of 2) 09/22/2021 07/28/2021 Hemoglobin A1C 08/31/2023 03/01/2023 Dexa Scan (General) 2023 COVID-19 Vaccine ( season) 2025 10/07/2022, 10/07/2022, 11/15/2021, Additional history exists Influenza Adult (#1) 2025 10/07/2022, 09/17/2020, 09/03/2019, Additional history exists Hepatitis A Vaccines Aged Out No long er eligible based on patient's age to complete this topic Meningococcal B Vaccine Aged Out No l [...] disease, with long-term current use of insulin from Last 3 Months or Most Recently Relevant to Health Maintenance Results * (ABNORMAL) HEMOGLOBIN, GLYCOSYLATED (03/01/2023 12:56 PM CDT) HGB A1C 7.5(H) <5.7 % 03/01/2023 2:01 PM CDT [facility] Comment: ADA GUIDELINES 2010 5.7 TO 6.4% INCREASED RISK OF DIABETES > OR = 6.5% CONSISTENT WITH DIABETES ESTIMATED AVG GLUCOSE 169 mg/dL 03/01/2023 2:01 PM CDT [facility] 03/01/2023 12:5 6 PM CDT Merrill Mederos MD LABORATORY Final Result [facility] [address] [place] [address], [place] [phone] from Last 3 Months or Most Recently Relevant to Health Maintenance Insurance [facility] Prepair [facility] [employer] [facility] [employer] [facility] BLUE [facility] EM[facility]ENC[facility]PART[facility] Care Teams Contact Agent Relationship Specialty Start Date End Date Merrill Mederos MD PCP - General FAMILY PRACTICE 03/01/23
--- OUTSIDE RECORDS SUMMARY | 2025-10-24 08:09 | XMS_ITS | Clinical Summary ---
Author Organization [facility] Address [address] [place] [address] Care Team Providers Care Clerk Travel Reservations Name Role Phone Gisela Bro MD Primary Care Provider [phone] Allergies Active Allergy Reactions Criticality Noted Date [...] (fourteen) days 2 kit 5 5 Active baclofen (LIORESAL) 10 mg tablet TAKE 1 TABLET BY MOUTH TWICE A DAY NEEDED FOR MUSCLE SPASM 5 Active leflunomide (ARAVA) 10 mg tabletIndicatio ns:Rheumatoid Arthritis Take 1 tablet (10 mg total) by mouth daily 90 tablet 3 5 05/16/20 26 Active Active Problems Problem Noted Date Diagnosed Date Type 2 diabetes mellitus wit hout complication, without long-term current use of insulin 05/16/2025 RABIA (acute kidney injury) 01/31/2025 Groin abscess 01/31/2025 Labial abscess 01/31/2025 Immunosuppressed status 01/31/2025 Immunosuppression due to drug therapy 10/07/2024 Assessment & Plan (10/07/2024 11:29 AM ELECTRON BEAM WELDING MACHINE OPERATOR): Encourage routine vaccinations. Follow up with PCP. [...] 07/24/2023 Assessment & Plan (10/07/2024 11:29 AM ELECTRON BEAM WELDING MACHINE OPERATOR): Long-term use of high-risk medication requiring regular monitoring. Labs ordered, no s/s of med tox or infection. Encouraged to work with PCP to make sure all recommended cancer screens and vaccinations are complete. Avoid live-vaccines unless reviewed with supervisor phosphatic fertilizer first. Assessment & Plan (12/07/2023 10:51 AM ELECTRON BEAM WELDING MACHINE OPERATOR): Long-term use of high-risk medication requiring regular monitoring. Labs ordered, no s/s of med tox or infection. Encouraged to work with PCP to make sure all recommended cancer screens and vaccinations are complete. Avoid live-vaccines unless reviewed with supervisor phosphatic fertilizer first. Assessment & Plan (07/24/2023 12:36 PM CDT): Long-term use of high-risk medication requiring regular monitoring. Labs ordered, no s/s of med tox or infection. Encouraged to work with PCP to make sure all recommended cancer screens and vaccinations are complete. Avoid live-vaccines unless reviewed with supervisor phosphatic fertilizer first. Discussed importance of avoiding repeated skin trauma due to her risks of infection. Will trial sarna lotion for itching. Encouraged to discuss with PCP. Hypokalemia 02/06/2023 Stage 3a chronic kidney disease 04/07/2022 Primary hypertension 04/07/2022 Weight loss counseling, encounter for 04/21/2020 Assessment [...] arthritis Assessment & Plan (10/07/2024 11:29 AM ELECTRON BEAM WELDING MACHINE OPERATOR): Stable on leflunomide and humira. Continue same. Labs today. Follow up in 6 months and prn. Assessment & Plan (12/07/2023 12:00 PM ELECTRON BEAM WELDING MACHINE OPERATOR): Flare in hand symptoms while off humira [...] w/r/t gut microbiome. Referred to ADA and [employer] websites for additional information on topics [...] Encounters Date Type Department Care Team Description 10/14/2025 Orders Only [address] [address] ProviderYoanna MD 10/14/2025 ACO Quality [address] [address] Krysta Rene MA 10/14/[address] [address] Emma Kc MA Successful Phone Call ([facility] A1C ) 10/02/[address] [address] Nubia Kinney MA Unsuccessful Phone Call 1 ([facility] Medicare A1c and KED labs) 09/29/2025 Telephone [facility] at [address] [place] [address] Kiara Guerin Unsuccessful Phone Call 1 ([facility] colo) from Last 3 Months Immunizations Immunization Administration [...] SURGICAL HISTORY 09/27/2022 - 10/26/2022 Thyroid Ultrasound OTHER SURGICAL HISTORY 03/27/2025 - 04/26/2025 absess flush eating bacteria Medical History Medical History Date Comments Hx [...] on file Legal Sex Female 10:44 AM ELECTRON BEAM WELDING MACHINE OPERATOR Gender Identity Not on file Sexual Orientation Not on file Last Filed Vital Signs Vital Sign Reading Time Taken Comments Blood Pressure 118/66 05/16/2025 2:16 PM CDT Pulse 57 05/16/2025 2:16 PM CDT Temperature 36.3 C (97.4 F) 05/16/2025 2:16 PM CDT Respiratory Rate 14 05/16/2025 2:16 PM CDT Oxygen Saturation 99% 05/16/2025 2:16 PM CDT Inhaled Oxygen Concentration - - Weight 119.1 kg (262 lb 9.6 oz) 05/16/2025 2:16 PM CDT Height 165.1 cm (5' 5) 05/16/2025 2:16 PM CDT Body Mass Index 43.7 05/16/2025 2:16 PM CDT Plan of Treatment Health Maintenance Due Date Last Done Comments Albumin Creatinine Ratio, Urine 1958 Breast Cancer Screening-Mammogram 1958 Colon Cancer Screening-Colonoscopy 1958 Depression Screening 1958 Fall Risk Assessment 1958 Osteoporosis Screening-Bone Density Scan 1958 Dilated Eye Exam 1958 Foot Exam 1958 Hepatitis B Screening 1976 Pneumococcal vaccine 65+ (2 of 2 - PPSV23, PCV20, or PCV21) 01/26/2017 12/01/2016 Lipid Panel 04/05/2020 04/05/2019, 0502/2018, 04/01/2016, Additional history exists Well Visit 65+ 2023 Covid-19 Vaccine (5 - 2024-2 6 season) 2025 10/07/2022, 11/15/2021, 03/16/2021, Additional history exists Influenza Vaccine (#1) 2025 , 12/04/2023, 10/07/2022, Additional history exists Hemoglobin A1C 10/25/2025 04/24/2025, 03/0 05/2025, 04/05/2019, Additional history exists eGFR 05/16/2026 05/16/2025, 02/0 05/2025, 10/07/2024, Additional history exists DTaP/Tdap/Td Vaccine (4 - Td or Tdap) 12/04/2033 12/04/2023, 08/30/2021, 01/26/2015, Additional history exists Hepatitis C Screening Completed 06/16/2021 Zoster Vaccine Completed 11/08/2021, 100 02/2021, 07/28/2021 Procedures Procedure Name Priority Date/Time Associated Diagnosis Comments EGFR Routine 05/16/2025 3:28 PM CDT Encounter for long-term (current) use of high-risk medication HM HEMOGLOBIN A1C Routine 04/24/2025 2:4 0 PM CDT HEPATITIS C ANTIBODY Routine 06/16/2021 2:53 PM CDT Rheumatoid arthritis involving multiple sites with positive rheumatoid factor (HCC) High risk medication use LIPID PANEL Routine 04/05/2019 12:54 PM CDT Intestinal malabsorption, unspecified type from Last 3 Months or Most Recently Relevant to Health Maintenance Results * (ABNORMAL) eGFR (05/16/2025 3:28 PM CDT) eGFR 58(L) >=60 mL/min/1. 73 m2 Comment: Interpretive Data [...] interpretive data was last reviewed 2021. Blood 05/16/2025 3:28 PM CDT 05/16/2025 6:01 PM CDT Anjali Mckeon MD LAB BLOOD ORDERABLES Final Result [facility] [address] [place] [address] * HM HEMOGLOBIN A1C (04/24/2025 2:40 PM CDT) Yoanna Provider HEALTH MAINTENANCE Final Result * Hepatitis C antibody (06/16/2021 2:53 PM CDT) Hep C Ab Nonreactive Nonreactive [facility] Comment: Interpretive Data Nonreactive: Antibodies to HCV [...] MICROBIOLOGY - GENERA L ORDERABLES Final Result [facility] [address] [place] [address] * (ABNORMAL) Lipid panel (04/05/2019 12:54 PM CDT) Cholesterol 114 30 - 199 mg/dL [facility] Comment: Interpretive Data Ages < or [...] revised on 2018. Triglycerides 151(H) <=149 mg/dL [facility] Comment: Interpretive Data Ages < [...] revised on 2018. HDL 39(L) >=40 mg/dL [facility] Comment: Interpretive Data Ages < [...] on 2018. LDL, calculated 45 <=129 mg/dL [facility] Comment: Interpretive Data Ages < [...] revised on 2018. Non-HDL Cholesterol 75 mg/dL [facility] Comment: Interpretive Data Ages < [...] last revised on 2018. Chol/HDL ratio 3 [facility] Blood specimen (specimen) 04/05/2019 12:54 PM CDT 04/05/2019 1:11 PM CDT Narrative [facility] - 04/05/2019 1:55 PM CDT Sourav Bolanos NP LAB BLOOD ORDERABLES Final Result [facility] [place] [address] from Last 3 Months or Most Recently Relevant to Health Maintenance Insurance [facility] MEDICARE ADVANTAGE [facility] CLAIMS [facility] MEDICARE ADVANTAGE FOR LIFE Advance Directives For more information, please contact: [phone] Documents on File Type Date Recorded Patient Coding Technician Expl anation ADVANCE DIRECTIVE 07/05/2018 12:00 AM POWER OF WELL SHOOTER FINANCIAL/MEDICAL Care Teams Clerk Travel Reservations Relationship Specialty Start Date End Date Gisela Bro MD PCP - General Family Medicine 02/27/24
--- OUTSIDE RECORDS SUMMARY | 2025-10-24 08:09 | XMS_ITS | Clinical Summary ---
[facility] Organization [facility] Address [address] [place] [address] Phone Care Team Providers Care Pharmacy Technician Assistant Name Role Phone Gisela Bro MD Primary Care Provider [phone] Allergies No known active allergies Medications atorvastatin [...] by mouth daily. 4 10/07/20 25 Active Problems Patient Care Coordination No te Formatting of this note migh t be different from the original. Primary Care: Tomi Gomez MD Referring Provider: Tomi Gomez [address] [place] [address] Other: Chirstina Janet Problem Noted Date Diagnosed Date Labial abscess 01/31/2025 RABIA (acute kidney injury) 01/31/2025 Immunosuppressed status 01/31/2025 Groin abscess 01/31/2025 Breast lump 04/05/2010 PCOS (polycystic ovarian syndrome) HTN (hypertension) Acid reflux Type 2 diabetes mellitus wit hout complication, without long-term current use of insulin Sleep apnea Restless leg Encounters Date Type Department Care Team Description 10/14/2025 External Device Data [facility] Provider, Abstract 10/14/2025 External Device Data [facility] Provider, Abstract 10/14/2025 External Device Data [facility] Provider, Abstract 09/02/2025 External Device Data [facility] Provider, Abstract 08/05/2025 External Device Data [facility] Provider, Abstract 07/29/2025 External Device Data [facility] Provider, Abstract [...] on file Legal Sex Female 5:53 AM ASSOCIATE PROFESSOR OF ENGLISH Gender Identity Not on file Sexual Orientation [...] 128.8 kg (284 lb) 01/30/2025 11:19 PM ASSOCIATE PROFESSOR OF ENGLISH Height 170.2 cm (5' 7) 01/30/2025 11:19 PM ASSOCIATE PROFESSOR OF ENGLISH Body Mass Index 44.48 01/30/2025 11:19 PM ASSOCIATE PROFESSOR OF ENGLISH Plan of Treatment Health Maintenance Due Date Last Done Comments DIABETES ANNUAL RETINAL EXAM 1976 DIABETES MICROALBUMIN ANNUAL SCREEN 1976 LDL CHOLESTEROL ANNUAL 1976 COLORECTAL SCREENING 2003 Colorectal Cancer Screening 2003 FIT-DNA Q 3 years 2003 FIT/FOBT Q 1 year 2003 Flex Sig/CT Colonography Q 5 years 2003 RSV VACCINE (60+ or ) (1 - Risk 50-74 years 1-dose series) 2008 BREAST CANCER SCREENING 04/05/2011 04/05/20 10, 12/29/2008, 07/26/2007, Additional history exists PNEUMOCOCCAL VACCINE 50+ YEA RS (2 of 2 - PPSV23, PCV20, or PCV21) 01/26/2017 12/01/2016 DIABETES ANNUAL FOOT EXAM 01/23/2019 01/23/2018 OSTEOPOROSIS SCREENING 2023 INFLUENZA VACCINE (#1) 2025 , 10/07/2022, 11/08/2021, Additional history exists COVID-19 Vaccine (2024-2 6 season) 2025 10/07/2022, 11/15/2021, 03/16/2021, Additional history exists DIABETES HBA1C Q 6 MONTHS 08/03/20252024, 03/01/2023, 04/05/2019 DTAP/TDAP/TD VACCINES (2 - T d or Tdap) 08/30/2031 08/30/2021 ZOSTER VACCINE Completed 11/08/2021, 02/2021, 07/28/2021 Procedures Procedure Name Priority Date/Time Associated Diagnosis Comments HEMOGLOBIN A1C Routine 01/31/2025 7:01 AM ASSOCIATE PROFESSOR OF ENGLISH MAMMO SCREEN BILAT W OR WO CAD Routine 04/05/2010 from Last 3 Months or Most Recently Relevant to Health Maintenance Results * HEMOGLOBIN A1C (01/31/2025 7:01 AM ASSOCIATE PROFESSOR OF ENGLISH) HEMOGLOBIN A1C 5.6 <=5.6 % 01/31/2025 10:50 PM ASSOCIATE PROFESSOR OF ENGLISH [facility] EST. AVG GLUCOSE, A1C 114 mg/dL 01/31/2025 10:50 PM ASSOCIATE PROFESSOR OF ENGLISH [facility] [employer] [facility] Blood Venipuncture / Unknown 01/31/2025 7:01 AM ASSOCIATE PROFESSOR OF ENGLISH 01/31/2025 7:57 AM ASSOCIATE PROFESSOR OF ENGLISH Narrative [facility] - 01/31/2025 10:50 PM ASSOCIATE PROFESSOR OF ENGLISH HGB A1C INTERPRETATION NORMAL: <5.7% PRE-DIABETES: 5.7 - 6.4% DIABETES: 6.5% OR GREATER us Monica Charles NP CHEMISTRY ORDERABLES Final Resu lt [facility] CLIA# [id number] [place] [address] * MAMMO DIGITAL SCREEN BILAT (04/05/2010) Anatomical Region Laterality Modality Breast Bilateral Other Milli Schultz MD MAMMO ORDERABLES Final Resul t from Last 3 Months or Most Recently Relevant to Health Maintenance Insurance [facility] [id number] [facility] [id number] FOR LIFE Advance Directives For more information, please contact: [phone] * Full Code (Latest Code Status on File) Date Activated Date Inactivated Comments 01/31/2025 8:35 AM 02/03/2025 7:00 PM * Default Full Code - Needs Discussion Date Activated Date Inactivated Comments 01/30/2025 11:51 PM 01/31/2025 8:35 AM Care Teams Pharmacy Technician Assistant Relationship Specialty Start Date End Date Gisela Bro MD [address] [place] [id number] PCP - General Family Practice 11/05/24
--- OUTSIDE RECORDS SUMMARY | 2025-10-24 08:09 | XMS_ITS | Encounter Summary ---
Author Organization [facility] Care Team Providers Care Digital Marketing Strategist Name Role Phone Tomi Gomez MD Primary Care Provider [phone] Sydni Spencer MD Primary Care Provider [phone] Unknown, Notinfile Primary Care Provider Unavail able Merrill Mederos MD Primary Care Provider [phone] Gisela Bro MD Primary Care Provider [phone] Encounter Details Date Type Department Care Team (Latest Contact Info) Description 07/05/2018 Orders Only [facility] ProviderYoanna MD [address] [place] [address] Social History Tobacco Use Types Packs/Day Years Used Date Smoking Tobacco: Former Smokeless Tobacco: Never Comments:Smoking History Pac ks/day: 2 Cigarettes Alcohol Use Standard Drinks/Week Comments No 0 (1 standard drink = 0.6 oz pur e alcohol) Comments Unknown Sex and Gender Information Value Date Recorded Sex Assigned at Not on file Legal Sex Female 10:44 AM ROD PULLER AND COILER Gender Identity Not on file Sexual Orientation Not on file documented as of this encounter Functional Status documented as of this encounter Plan of [...] documented as of this encounter Care Teams Digital Marketing Strategist Relationship Specialty Start Date End Date Tomi Gomez MD PCP - General 03/30/18 07/09/19 Sydni Spencer MD [address] [place] [address] PCP - General 07/10/19 06/28/22 Unknown, Notinfile PCP - General 06/29/22 08/28/22 Merrill Mederos MD PCP - General Contract Forester 08/29/22 02/26/24 Gisela Bro MD PCP - General Family Medicine 02/27/24 documented as of this encounter
--- OUTSIDE RECORDS SUMMARY | 2025-10-24 08:09 | XMS_ITS | Encounter Summary ---
Author Organization [facility] Healthcare Address [address] [place] [address] Care Team Providers Care Supervisor [employer] Products Name Role Phone Gisela Bro MD Primary Care Provider [phone] Encounter Details Date Type Department Care Team (Late st Contact Info) Description 12/17/2024 Orders Only [facility] Health Information Management [address] [place] [address] Scanning, Provider Social History Tobacco Use Types [...] on file Legal Sex Female 10:44 AM FACILITY SERVICE ASSOCIATE Gender Identity Not on file Sexual Orientation [...] on filedocumented in this encounter Care Teams Supervisor [employer] Products Relationship Specialty Start Date End Date Gisela Bro MD PCP - General Family Medicine 02/27/24 documented as of this encounter
--- OUTSIDE RECORDS SUMMARY | 2025-10-24 08:09 | XMS_ITS | Encounter Summary ---
Author Organization [facility] Healthcare Address [address] [place] [address] Care Team Providers Care International Accounting Manager Name Role Phone Gisela Bro MD Primary Care Provider [phone] Encounter Details Date Type Department Care Team (Late st Contact Info) Description 12/24/2024 Orders Only [facility] Information Management [address] [place] [address] Scanning, Provider Social History Tobacco Use Types [...] on file Legal Sex Female 10:44 AM MODEL MAKER APPRENTICE Gender Identity Not on file Sexual [...] on filedocumented in this encounter Care Teams International Accounting Manager Relationship Specialty Start Date End Date Gisela Bro MD PCP - General Family Medicine 02/27/24 documented as of this encounter
[2025-10-24 08:55] LABS: Hematocrit 44.5 % (37.0-47.0); Hemoglobin 14.4 g/dL (12.0-15.0); Immature Granulocyte Percent A 0.4 % (0-0.5); Lymphocytes Absolute Auto 1.96 K/mm3 (0.9-3.2); Mean Corpuscular HGB Conc 32.4 g/dl (32-36); Mean Corpuscular Hemoglobin 29.9 pg (26-34); Mean Corpuscular Volume 92.5 fl (80-100); Nucleated Red Blood Cells Absolute Auto 0.000 K/mm3 (0.0-0.012); Nucleated Red Blood Cells Perc 0.0 % (0.0-0.2); Platelet Count Result 187 k/mm3 (150-375); Red Blood Count 4.81 M/mm3 (4.2-5.4); White Blood Count 5.6 K/mm3 (4.5-10.0)
[2025-10-24 09:19] LABS: Alanine Aminotransferase 32 U/L (6-35); Albumin Level 4.1 g/dL (3.5-5.1); Alkaline Phosphatase 63 U/L (38-126); Anion Gap 5 mmol/L (4-12); Aspartate Amino Transferase 37 U/L (14-36); Bilirubin,Total 1.1 mg/dL (0.2-1.3); Blood Urea Nitrogen 22 mg/dL (7-17); Calcium 9.2 mg/dL (8.4-10.2); Carbon Dioxide 29 mmol/L (22-30); Chloride 102 mmol/L (98-107); Cholesterol 136 mg/dL (0-200); Creatine Kinase 51 U/L (30-135); Estimated Glomerular Filt Rate 49; Glucose 97 mg/dL (65-110); HDL Direct 44 mg/dL; Potassium 3.7 mmol/L (3.4-5.0); Sodium 136 mmol/L (137-145); Total Protein 7.6 g/dL (6.3-8.2); Triglycerides 153 mg/dL (<150)
[2025-10-24 09:22] LABS: Total Protein Urine Random 9 mg/dL; Ur Ttl Prot Creatinine Ratio 0.07 mg/mg (0-0.20)
[2025-10-24 09:30] LABS: Parathyroid Intact 93.4 pg/mL (14.5-75.2)
[2025-10-24 09:54] LABS: Thyroid Stimulating Hormone 0.623 uIU/mL (0.465-4.680)
[2025-10-24 11:57] LABS: Iron 95 ug/dL (37-170)
[2025-10-24 12:09] LABS: Hemoglobin A1C 5.5 % (<5.7)
[2025-10-24 12:16] LABS: Free T4 Free Thyroxine 1.22 ng/dL (0.78-2.19)
[2025-10-24 12:44] LABS: Ferritin 98.70 ng/mL (11.1-264)
[2025-10-24 12:46] LABS: Percent Iron Saturation 28 % (20-50)
[2025-10-24 14:30] LABS: Vitamin B12 994.0 pg/mL (239-931)
== END 2025-10-24 08:05 | disposition home or self-care (01) ==
PROVIDERS: PCP Student in an Organized Health Care Education/Training Program; Referring Provider Student in an Organized Health Care Education/Training Program; Visit Provider Internal Medicine Nephrology
DX: F41.9 Anxiety disorder, unspecified (principal); I10 Essential (primary) hypertension; E78.5 Hyperlipidemia, unspecified; E11.9 Type 2 diabetes mellitus without complications; K21.9 Gastro-esophageal reflux disease without esophagitis; M06.9 Rheumatoid arthritis, unspecified; I63.9 Cerebral infarction, unspecified; G47.30 Sleep apnea, unspecified; R53.83 Other fatigue; R79.89 Other specified abnormal findings of blood chemistry; E55.9 Vitamin D deficiency, unspecified; R94.4 Abnormal results of kidney function studies; M79.10 Myalgia, unspecified site; Z98.84 Bariatric surgery status
CPT/HCPCS: 36415; 80053; 80061; 82306; 82533; 82550; 82570; 82607; 82728; 82746; 83036; 83540; 83550; 83970; 84100; 84156; 84439; 84443; 85025